=== PATIENT | female | born 1990 | race Caucasian/White ===

== ENCOUNTER 2016-07-30 17:53 | Emergency (ER) | payer MEDICAID ==
[~2016-07-30] VITALS: Ht 167.6 cm; Wt 55.4 kg
[~2016-07-30 17:53] MED LIST: ATARAX PO; CATA0.1T PO; HYDR25T PO; LIDO5DIS TD; NEUR100C PO; TRAZ50TA OR; TRAZ50TA4 PO; VENL100T PO; ZOLO50TA OR
[2016-07-30] MEDS ORDERED: EFFE75CA75 PO (18:07)
[2016-07-30] MEDS ORDERED: predniSONE 20 MG TAB PO ONE (19:00)
[2016-07-30 19:25] LABS: BASO % 0.4 % (0.0-1.0); EOS # 0.1 K/mm3 (0.0-0.50); EOS % 0.9 % (0.0-3.0); LARGE UNSTAINED CELL # 0.2 K/mm3 (0.0-0.4); LARGE UNSTAINED CELL % 1.6 % (0.0-4.0); LYMPH # 1.5 K/mm3 (1.5-6.5); LYMPH % 12.5 % (24.0-44.0); MEAN CORPUSCULAR HEMOGLOBIN 30.4 pg (27.0-33.0); MEAN CORPUSCULAR HGB CONC 35.3 g/dl (32.0-36.5); MEAN CORPUSCULAR VOLUME 86.2 fl (80.0-96.0); MONO # 0.5 K/mm3 (0.0-0.8); MONO % 4.5 % (0.0-5.0); NEUTROPHILS # 9.5 K/mm3 (1.8-7.7); NEUTROPHILS % 80.1 % (36.0-66.0); PLATELET COUNT, AUTOMATED 327 k/mm3 (150-450); RED CELL DISTRIBUTION WIDTH 11.3 % (11.5-14.5); WHITE BLOOD COUNT 11.8 K/mm3 (4.0-10.0)
[2016-07-30 19:30] LABS: INR 1.07
[2016-07-30 19:47] LABS: ALBUMIN 3.9 GM/DL (3.2-5.2); ALBUMIN/GLOBULIN RATIO 1.34 (1.00-1.93); ALKALINE PHOSPHATASE 65 U/L (45-117); ALT/SGPT 47 U/L (12-78); ANION GAP 7 MEQ/L (8-16); AST/SGOT 52 U/L (15-37); BILIRUBIN,DIRECT < 0.1 MG/DL (0.0-0.2); BILIRUBIN,TOTAL 0.3 MG/DL (0.2-1.0); BLOOD UREA NITROGEN 13 MG/DL (7-18); CARBON DIOXIDE LEVEL 25 MEQ/L (21-32); CHLORIDE LEVEL 104 MEQ/L (98-107); CREATININE FOR GFR 0.74 MG/DL (0.55-1.02); GLOMERULAR FILTRATION RATE > 60.0 (>60); GLUCOSE, FASTING 120 MG/DL (70-105); POTASSIUM SERUM 4.2 MEQ/L (3.5-5.1); SODIUM LEVEL 136 MEQ/L (136-145); TOTAL PROTEIN 6.8 GM/DL (6.4-8.2)
[2016-07-30] MEDS ORDERED: NAPR500T PO (19:51)
[2016-07-30] MEDS ORDERED: PRED20TA PO (19:51)
[2016-07-30 19:59] VITALS: BP 137/63
== END 2016-07-30 20:05 | disposition home or self-care (01) ==
LOC: M ED 18:53
DX: B34.9 Viral infection, unspecified (principal); D69.0 Allergic purpura; J02.8 Acute pharyngitis due to other specified organisms; F17.200 Nicotine dependence, unspecified, uncomplicated; Z79.899 Other long term (current) drug therapy

== ENCOUNTER 2016-08-08 07:08 | Inpatient (IN) | payer MEDICAID ==
[~2016-08-08] VITALS: Ht 165.1 cm; Wt 58.2 kg
[~2016-08-08 07:08] MED LIST changes: +EFFE75CA75 PO; +NAPR500T PO; +PRED20TA PO
[2016-08-08] MEDS ORDERED: CLINDAMYCIN 900 MG in APPROPRIATE DILUENT 1 EA IV ONE (07:45)
[2016-08-08] MEDS ORDERED: diphenhydrAMINE INJ 50MG/ML VIAL (J1200) IV ONE (07:45)
[2016-08-08] MEDS ORDERED: MORPHINE 4 MG/ML 1ML SYRINGE IV ONE (07:45)
[2016-08-08] MEDS ORDERED: ONDANSETRON 4MG/2ML VIAL (J2405) IV ONE (08:00)
[2016-08-08 08:18] LABS: DIFF SLIDE NUMBER 122; MEAN CORPUSCULAR HEMOGLOBIN 29.7 pg (27.0-33.0); MEAN CORPUSCULAR HGB CONC 33.9 g/dl (32.0-36.5); MEAN CORPUSCULAR VOLUME 87.6 fl (80.0-96.0); PLATELET COUNT, AUTOMATED 373 k/mm3 (150-450); RED CELL DISTRIBUTION WIDTH 11.9 % (11.5-14.5)
[2016-08-08 08:22] LABS: WHITE BLOOD COUNT 34.1 K/mm3 (4.0-10.0)
[2016-08-08 08:35] LABS: ALBUMIN 3.1 GM/DL (3.2-5.2); ALBUMIN/GLOBULIN RATIO 0.86 (1.00-1.93); ALKALINE PHOSPHATASE 79 U/L (45-117); ALT/SGPT 25 U/L (12-78); ANION GAP 7 MEQ/L (8-16); AST/SGOT 21 U/L (15-37); BILIRUBIN,TOTAL 0.3 MG/DL (0.2-1.0); BLOOD UREA NITROGEN 19 MG/DL (7-18); CALCIUM LEVEL 8.9 MG/DL (8.5-10.1); CARBON DIOXIDE LEVEL 27 MEQ/L (21-32); CHLORIDE LEVEL 102 MEQ/L (98-107); CREATININE FOR GFR 1.01 MG/DL (0.55-1.02); GLOMERULAR FILTRATION RATE > 60.0 (>60); GLUCOSE, FASTING 89 MG/DL (70-105); POTASSIUM SERUM 3.5 MEQ/L (3.5-5.1); SODIUM LEVEL 136 MEQ/L (136-145); TOTAL PROTEIN 6.7 GM/DL (6.4-8.2)
[2016-08-08] MEDS ORDERED: NS 1,000 ML IV ONE ×2 (08:45→13:00)
[2016-08-08 08:48] LABS: ERYTHROCYTE SEDIMENTATION RATE 17 mm/hr (0-20)
--- NOTE | 2016-08-08 09:05 | REP ---
LEFT KNEE, FIVE VIEWS: There is no evidence of an acute fracture, dislocation or intrinsic bone disease. IMPRESSION: No fracture or dislocation. Signed by Bertrand Torres MD 08/08/2016 05:12 P
--- NOTE | 2016-08-08 09:19 | REP ---
Ultrasonography of the soft tissues of the left knee: The the patient has a palpable red area in the location where she recently popped a pimple. Ultrasonography over the red area identifies cobblestoning of the subcutaneous fat, possibly edema in the subcutaneous fat. Additionally, there is a focal small zone of fluid in the fascial planes deep to the subcutaneous fat of the. This is nonspecific and could be a seroma, hematoma or small abscess. In addition, in the fascial planes deep to the subcutaneous fat post along the posterior aspect of the knee., there is another small focal fluid collection with similar diagnostic considerations. Signed by Bertrand Toro MD 08/08/2016 09:11 A
[2016-08-08] MEDS ORDERED: IBUPOTC PO (10:14)
[2016-08-08 12:16] LABS: METHADONE URINE NEGATIVE (NEGATIVE)
--- NOTE | 2016-08-08 12:18 | REP ---
MRI LEFT KNEE WITH AND WITHOUT CONTRAST: TECHNIQUE: Multiple sequences obtained in the axial, coronal and sagittal planes, prior to and following the intravenous administration of 10 mL of Gadolinium. Osseous structures demonstrate no abnormal marrow signal. There is no bone marrow edema or enhancement. There is diffuse soft tissue edema predominately laterally extending above and below the knee with scattered ill-defined enhancement consistent with cellulitis. There is a moderate amount of fluid in the fascia plane between the muscles and subcutaneous fat again extending above and below the knee for a length of about 20 cm. Maximum thickness of the fluid is 1 cm. The fluid is predominately anterolateral. It is not encapsulated. A small amount extends anteromedially. IMPRESSION: Cellulitis with moderate nonencapsulated fluid in the fascial plane between the musculature and subcutaneous fat predominately anterolaterally. This extends above and below the knee and is not encapsulated with maximum length of about 20 cm and thickness 1 cm. Nonencapsulated abscess is not excluded. A small amount extends anteromedially. Signed by Bertrand Torres MD 08/08/2016 05:13 P
[2016-08-08] MEDS ORDERED: ONDANSETRON 4MG/2ML VIAL (J2405) IV PRN (12:45)
[2016-08-08] MEDS: HEPARIN SOD (PORCINE) 5000 UNITS/ML VIAL SC SCH ×2 (14:00→21:10)
[2016-08-08] MEDS ORDERED: LIDOCAINE 1% MDV 20ML VIAL As Ordered ONE (14:17)
[2016-08-08] MEDS ORDERED: VANCOMYCIN HCL 1,000 MG, VIAL MATE ADAPTER 1 EACH in D5W 250 ML IV ONE (15:00)
--- NOTE | 2016-08-08 15:10 | CR ---
DATE OF CONSULTATION: 08/08/2016 CHIEF COMPLAINT: Left knee redness and pain. HISTORY: This is a 26-year-old with a reported history of IV drug abuse who presents to the emergency room today with some redness and increased pain of her left knee. She reported that she had a small pimple along the inferior lateral aspect of the knee that she popped a few days ago. She presented with no fevers, and I was contacted by the emergency room physician assistant principal (JAYLAN) and by Dr. Gilbert. She presents with a white count of 34.1 with 90 neutrophils and 9 lymphocytes. Her CRP is 14.6, which is significantly elevated, whereas the sedimentation rate was relatively normal. She is afebrile here. Her medications include prednisone, trazodone, venlafaxine. PAST MEDICAL HISTORY: Includes attention deficit hyperactivity disorder (ADHD), substance abuse, history of methicillin-resistant Staphylococcus aureus. ON EXAM: Otherwise healthy woman. No acute distress. She has nonlabored breathing. Her left knee demonstrates some erythema over the anterior aspect of the knee that extends down to her proximal ferreira. It is outlined down along most of her anterior tibia from where it was previously red, but it seems to be actually quite a bit smaller area now. She has tenderness to palpation, and it feels mildly warm. There is no obvious effusion of the knee. No localized areas of fluctuance. MRI scan is reviewed, which shows no localized contained fluid collection, but it looks more like a diffuse cellulitis. They do comment on some fluid between the fat and fascia that is in a large area, and this to me looks more consistent with cellulitis. IMPRESSION: Is a 26-year-old with history of substance abuse who has some redness and pain in her left knee that it looks to me like more of a cellulitis picture. There was an ultrasound that showed maybe some fluid collections. She is in ultrasound right now with anticipation of trying to get some fluid out of this or put a small drain in if there is a localized collection that they can decompress. I do not see any indications for surgical intervention, as there is no contained or capsulized fluid collection; this is more just diffuse fluid consistent with cellulitis. I would recommend IV antibiotics per the hospitalist and moist heat several times a day, 4-5 times a day. Blood cultures have been obtained, and certainly would follow labs as per the hospitalists. She denies a history of glaucoma, thyroid disease, lung disease, heart disease, hypertension, diabetes, liver or kidney disease. Denies back problems, urinary problems, or bleeding disorder. ALLERGY STATUS: She has no known drug allergies. Edited: clara 08/08/2016 1508
[2016-08-08 15:31] VITALS: BP 90/58
[2016-08-08] MEDS: MORPHINE 2 MG/ML 1ML SYRINGE IV PRN ×3 (15:38→21:19)
[2016-08-08 15:46] LABS: CRYSTALS, BODY FLUID NONE SEEN (NONE SEEN)
[2016-08-08] MEDS ORDERED: SODIUM CHLORIDE 0.9% 1000 ML IV ONE (16:00)
--- NOTE | 2016-08-08 16:30 | HPE ---
DATE OF ADMISSION: 08/08/2016 PRIMARY CARE PROVIDER: The patient usually sees JAYLAN Boyd but currently is in the process of switching to [facility]. CHIEF COMPLAINT: Left knee pain. HISTORY OF PRESENT ILLNESS: This is a 26-year-old female patient with underlying medical history of depression, insomnia, anxiety, IV drug abuse, heroin, human papillomavirus (HPV) with Pap smear and colposcopy, history of methicillin-resistant Staphylococcus aureus (MRSA) infection of the skin, last drug use 18 months ago as per patient. She noticed a pimple on her knee about two days ago, subsequently it popped and drained some purulent drainage, and subsequently the pain has worsened and the redness has spread to involve in her ferreira as well as her entire knee with difficulty bending. Denies any chest pain. Reported sweaty and chills. Denies any abdominal pain, diarrhea, or constipation. Denies any recent IV drug use or trauma other than the popped pimple. ALLERGIES: No known drug allergies. PAST MEDICAL HISTORY: 1. Anxiety. 2. depression. 3. Insomnia. 4. Human papillomavirus (HPV). 5. IV drug abuse with heroin. PAST SURGICAL HISTORY: 1. Colposcopy. 2. Left shoulder pain and repair. 3. Loop electrical excision procedure (LEEP). FAMILY HISTORY: Mother with anxiety and depression. SOCIAL HISTORY: Current smoker, one pack per day for the past 10 years. Denies alcohol drinking. History of IV drug use, last use 18 months ago. REVIEW OF SYSTEMS: Reported sweaty chills and left knee pain and redness. All other review of systems are negative. HOME MEDICATIONS: - ibuprofen 200 mg by mouth every six hours as needed - trazodone 150 mg by mouth at bedtime - Effexor 150 mg by mouth daily VITAL SIGNS: Temperature 98.6, pulse 114, respiratory rate 18, blood pressure 90/58, pulse oximetry 100% on room air. GENERAL: The patient is alert and oriented times three, in no acute distress. HEENT: Normocephalic, atraumatic. PULMONARY: Bilaterally clear to auscultation. CARDIOVASCULAR: Mild tachycardia, irregular, S1, S2. ABDOMEN: Soft, nontender. Positive bowel sounds. EXTREMITIES: Left lower knee range of movement restricted secondary to pain. Erythema extending from her ferreira all the way involving the entire knee. Mild bruising spot on the lateral knee with a pinprick spot as the patient identified the popped pimple. Dorsalis pedis (DP), posterior tibial (PT) pulses 2+ bilaterally. LABORATORY DATA: WBC 34, hemoglobin and hematocrit 14/41.1, platelets 373. Chemistry: Sodium 136, potassium 3.5, chloride 102, bicarbonate 27, BUN 19, creatinine 1, lactic acid 1.6, C-reactive protein 14.6. MRI of the knee shows cellulitis with moderate nonencapsulated fluid in the fascial plane between the macular and subcutaneous fat, predominantly anterolateral, this extends above and below the knee and is not encapsulated with max movement about 20 cm and thickness of 1 cm. Unencapsulated abscess is not excluded, small amount extending anteromedially. ASSESSMENT AND PLAN: This is a 26-year-old female patient with underlying medical history of depression, anxiety, insomnia, human papillomavirus (HPV), IV drug abuse history with heroin, admitted with cellulitis and abscess of the left knee, history of methicillin-resistant Staphylococcus aureus (MRSA). 1. Sepsis secondary to cellulitis and abscess of the left knee. Orthopedic, Dr. Cook, has been consulted. MRI appreciated. Ultrasound-guided drainage for cultures and fluid collection has been done. Blood culture has been sent. IV fluids. Followup blood culture. Lactic acid appreciated. The patient is currently on Rocephin and vancomycin. Continue to monitor. Followup cultures. Consider infectious disease consultation if the patient does not improve. 2. Anxiety. Continue current medications. 3. History of IV drug abuse. Counseling provided. Urine toxicology appreciated. 4. Insomnia. Continue current medications. 5. Smoking. Refused nicotine patch. Counseling provided. Time spent counseling the patient: Four minutes. 6. Deep vein thrombosis (DVT) prophylaxis. Heparin subcutaneous. DISPOSITION PLANNING: Pending clinical improvement, cultures, smoking cessation counseling provided.
[2016-08-08] MEDS: KCL 20MEQ in NS 1000ML 1,000 ML IV SCH ×2 (16:49→21:40)
[2016-08-08] MEDS: VENLAFAXINE **XR** 75MG CAPSULE PO SCH (16:49)
[2016-08-08] MEDS: cefTRIAXone SOD 2 GM in D5W MINI-BAG PLUS 50 ML IV SCH (16:49)
[2016-08-08] MEDS: PERCOCET 5MG/325MG TAB PO PRN (16:49)
--- NOTE | 2016-08-08 16:49 | REP ---
ULTRASOUND GUIDED LEFT KNEE ASPIRATION: The procedure was performed under the direct supervision of Dr. Torres. The patient has a history of cobblestoning of the subcutaneous fat and possible edema in the subcutaneous fat as well as small focal zones of fluid seen on a previous ultrasound dated 08/08/2016. The risks and benefits of the procedure were explained to the patient and informed consent was obtained. The left knee fluid collection was localized using ultrasound guidance. The skin was prepped and draped in a sterile fashion. 1% Xylocaine was used as a local anesthetic. Using ultrasound guidance and 18-gauge needle was inserted and a few drops of whitish colored fluid was withdrawn. The needle was then reinserted and a few drops of red tinged fluid was withdrawn. All samples were sent to the lab for analysis. The patient tolerated the procedure well and there were no immediate complications.
[2016-08-08 18:00] VITALS: BP 102/55
--- NOTE | 2016-08-08 18:28 | PHACANCOPD ---
PHARMACY VANCOMYCIN DOSING Pt Demographics Demographics Patient Age:26 , Weight:58.200 , Gender: female Adjusted Body Weight Date: 08/08/16, Adjusted Body Weight: [NA] Kg Events Past 24 Hours Events Past 24 Hours: YES: Elevation in WBC, NO: Dialysis, Diuretic Therapy, Change in CrCl, Fever, Pending Diagnostics, Pending Procedures, Other Vancomycin Vancomycin indication: SEPSIS Vancomycin Target Ranges: 15-20 mcg/ml Vancomycin Load Y/N: Yes Load Dose Date Time Vancomycin Load Dose: 1000mg Date: 08/08 Time: ~18:00 Vancomycin Dose Date: 08/08/16. Current Vancomycin Dose: [1g IV q12h @21] Intermittent Dosing?: No Labs Labs Item Value Date Time White Blood Count 34.1 K/mm3 *H 08/08/16 0805 Creatinine 1.01 MG/DL 08/08/16 0805 C-Reactive Protein, Quantitative 14.60 MG/DL H 08/08/16 0805 Micro Microbiology 08/08/16 Blood Culture, Received Pending 08/08/16 Blood Culture, Received Pending 08/08/16 Anaerobic Culture, Received Pending 08/08/16 Gram Stain - Final, Resulted 08/08/16 Abscess Culture, Resulted Pending Creatinine Clearance Date:08/08/16. Creatinine Clearance: [94 ml/min]. Assessment and Plan Maintaining Current Dose?: Yes Reason for dose change: No Dose Change Pharmacist Note Pharmacist Note Date: 08/08/16. Pharmacist note: pt has been admitted for sepsis secondary to left knee cellulitis. Pt has a Hx of IVDU, Hx of MRSA cellulitis (SALMA = 1) but has not been treated with vancomycin at our facility in the past. I have started her on vancomycin 1g this afternoon, followed by 1g IV q12h to start 3 hours later. She has also been started on Rocephin. Wound and blood cultures are pending, we will continue to monitor and order a trough as necessary. Sin Espinoza Pharm.D. Aug 08, 2016 18:28
[2016-08-08 21:05] VITALS: BP 119/63
[2016-08-08] MEDS: VANCOMYCIN HCL 1,000 MG, VIAL MATE ADAPTER 1 EACH in D5W 250 ML IV SCH (21:10)
[2016-08-08] MEDS: traZODone 50 MG TAB PO SCH (21:10)
[2016-08-09] MEDS: ACETAMINOPHEN TAB 650MG DOSE (2X325MG) PO PRN (00:15)
[2016-08-09 00:16] VITALS: BP 116/56
[2016-08-09 00:45] VITALS: BP 114/56
--- NOTE | 2016-08-09 00:58 | ECGEPIP ---
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
[2016-08-09] MEDS: KCL 20MEQ in NS 1000ML 1,000 ML IV SCH (02:06)
[2016-08-09] MEDS: HEPARIN SOD (PORCINE) 5000 UNITS/ML VIAL SC SCH ×3 (05:26→20:26)
[2016-08-09 05:59] LABS: MEAN CORPUSCULAR HGB CONC 33.8 g/dl (32.0-36.5); MEAN CORPUSCULAR VOLUME 88.7 fl (80.0-96.0)
[2016-08-09 06:01] LABS: WHITE BLOOD COUNT 32.4 K/mm3 (4.0-10.0)
[2016-08-09 06:07] LABS: ANION GAP 5 MEQ/L (8-16); BLOOD UREA NITROGEN 10 MG/DL (7-18); CALCIUM LEVEL 7.6 MG/DL (8.5-10.1); CARBON DIOXIDE LEVEL 23 MEQ/L (21-32); CHLORIDE LEVEL 109 MEQ/L (98-107); CREATININE FOR GFR 0.72 MG/DL (0.55-1.02); GLOMERULAR FILTRATION RATE > 60.0 (>60); GLUCOSE, FASTING 94 MG/DL (70-105); MAGNESIUM LEVEL 1.8 MG/DL (1.8-2.4); POTASSIUM SERUM 4.5 MEQ/L (3.5-5.1); SODIUM LEVEL 137 MEQ/L (136-145)
[2016-08-09] MEDS: MORPHINE 2 MG/ML 1ML SYRINGE IV PRN (06:19)
[2016-08-09 06:20] VITALS: BP 116/54
[2016-08-09] MEDS ORDERED: LR 1,000 ML IV ONE (07:00)
[2016-08-09] MEDS: VENLAFAXINE **XR** 75MG CAPSULE PO SCH (07:50)
[2016-08-09] MEDS: MIRALAX *UNIT DOSE* 17GM PACKET PO SCH (09:00)
[2016-08-09] MEDS: PERCOCET 5MG/325MG TAB PO PRN ×4 (09:02→23:30)
[2016-08-09] MEDS: VANCOMYCIN HCL 1,000 MG, VIAL MATE ADAPTER 1 EACH in D5W 250 ML IV SCH ×2 (09:02→17:46)
[2016-08-09] MEDS: NS 1,000 ML IV SCH ×3 (09:04→22:20)
--- NOTE | 2016-08-09 09:55 | IPN ---
DATE: 08/09/2016 Patient seen and examined a couple of times this morning, once by myself and Susanne and the other time with Dr. Gilbert and Dr. Aisha Hemphill. A great deal of time was spent with the patient today. We have also been reviewing her lab work and her history. She is a relatively poor historian. But she does relate and this is documented in the emergency room visit from 07/30/2016 that she was seen there for a sore throat and some sort of what she describes as small white pimples on her legs, mostly on the back of her legs. She, at that point, had a throat culture obtained that showed group C strep. She was treated with, as far as I can tell from emergency room record was placed on some naproxen and some prednisone taper it looked like it was 60 mg tapering down to 20 that the patient says that she stopped just before she came in yesterday. She denies any fevers at home. Lab work today shows white count slightly down at 32.4. Her CRP is elevated to 23.4. She does have a positive toxicology screen of urine opiates and urine amphetamines. Her fluid that was obtained under ultrasound guidance was just a couple drops of fluid and this is showing evidence of gram-positive cocci in pairs and chains. The blood cultures have no growth yet. She does show some anemia, which may be dilutional because she received a significant amount of fluid during the night. She now has a hematocrit of 32.4 where as yesterday it was 40.2. On physical exam, she does have this redness that looks quite similar to the way it looked yesterday that extends from just above her patella down along the anterior part of her ferreira to almost her ankle in a similar area that was outlined yesterday. However, there is a new area along the distal lateral thigh and posterior thigh. She is tender to palpation over these red areas, but there is no tenderness proximal to this and she denies any significant pain when she is resting without anyone touching it or without her moving. She is able to move her foot and ankle really almost normally without significant discomfort. She has passive range of motion distally that has no discomfort. There is only mild swelling of the lower extremity and absolutely no signs of any compartment syndrome. The compartments are soft. Previous imaging is noted in the chart. There was an MRI scan of the knee that was done yesterday that showed some cellulitis with some nonencapsulated fluid in the fascial plane between the musculature and subcutaneous fat predominately anterolaterally. Maximum length of 20 cm. This was presumably the area that they were able to get a couple of drops of fluid out under ultrasound guidance. She also had a knee x-ray yesterday that was otherwise (dictation cut off). Again, Dr. Gilbert and Dr. Hemphill and I discussed this in detail and it is a little bit puzzling as to what is going on here, whether this is just cellulitis that has been treated with vancomycin and ceftriaxone, and she also received a dose of clindamycin in I believe the emergency room yesterday morning. It does seem to have gotten a little bit more widespread in terms of now involving her distal lateral thigh for a short distance, maybe 10 cm in the posterior thigh. Some were in the 15 cm range. She has no discomfort at rest that she reports, so it is very unlikely to be a necrotizing fasciitis and very unlikely to be any sort of compartment syndrome. The question is whether there might be some fluid collection that could be drained that potentially may help her. We are going to keep her nothing by mouth for right now. We are going to order further imaging studies. Currently, Dr. Hemphill is discussing with the radiologist imaging options for her and we will proceed based on what further imaging shows.
[2016-08-09] MEDS ORDERED: MORPHINE 2 MG/ML 1ML SYRINGE IV PRN (11:00)
[2016-08-09] MEDS: SENOKOT S TAB PO SCH ×2 (13:09→20:27)
[2016-08-09] MEDS: cefTRIAXone SOD 2 GM in D5W MINI-BAG PLUS 50 ML IV SCH (13:09)
[2016-08-09 14:00] VITALS: BP 101/54
--- NOTE | 2016-08-09 16:05 | IPNPDOC ---
Subjective Date Seen The patient was seen on 08/09/16. Subjective Chief Complaint/HPI The patient is a 26-year-old female admitted with a reason for visit of Cellulitis Of Left Knee, Septic Arthritis. Events since last encounter reported persistent left LE and knee pain, worsen with movement, 8/10,. no change from previous. tachycardiac and febrile overnight. Denied cp, abd pain, n /v. Constitutional: Reports: Chills, Fever Eyes: Denies: Pain ENT: Denies: Head Aches Skin: Reports: Lesions (left knee) Pulmonary: Denies: Dyspnea, Cough Cardiovascular: Denies: Chest Pain, Palpitations Gastrointestinal: Denies: Nausea, Vomiting, Abdominal Pain Objective Physical Examination General Exam: Positive: Alert, Cooperative, Mild Distress Eye Exam: Positive: PERRLA ENT Exam: Positive: Atraumatic, Mucous membr. moist/pink Chest Exam: Positive: Clear to auscultation, Normal air movement Heart Exam: Positive: Tachycardic, Regular Rhythm, Normal S1, Normal S2 Abdomen Exam: Positive: Normal bowel sounds, Soft, Negative: Tenderness Extremity Exam: Positive: Tenderness, Swelling, Other Other physical findings Left lower knee range of movement restricted secondary to pain. Erythema extending from her ferreira all the way involving the entire knee. Mild bruising spot on the lateral knee with a pinprick spot as the patient identified the popped pimple. Dorsalis pedis (DP), posterior tibial (PT) pulses 2+ bilaterally. erythema seens to be progressing upward Assessment /Plan Assessment 26-year-old female patient with underlying medical history of depression, anxiety, insomnia, human papillomavirus (HPV), IV drug abuse history with heroin, admitted with cellulitis and abscess of the left knee, history of methicillin-resistant Staphylococcus aureus (MRSA). Problems (1) Cellulitis of left knee Status: Acute Problem Text: IVF, 2/2 to strep, cultures appreciated, ortho and ID consulted MRI done, Rocephin and Vanoc repeat MRI tomorrow if not improved. pain med as prescribed (2) Sepsis Status: Acute Problem Text: Febrile and tachycardiac IVF given, Rocephin and vanco, f/u cultures MRI repeat if not improved to r/o abscess (3) Anxiety Status: Chronic Problem Text: c/w home med (4) Insomnia Status: Chronic Problem Text: c/w med (5) Smoking Status: Chronic Problem Text: counseling provider, refused nicotine patch (6) IV drug abuse Status: Chronic Problem Text: last use 18 month ago U tox and HIV, and hepatitis recent Pseudafed use Plan/VTE VTE Prophylaxis Ordered?: Yes (heparin SQ) Disposition Pending clinical improvement VS, I&O, 24H, Fishbone Vital Signs/I&O Vital Signs Date Time Temp Pulse Resp B/P (MAP) Pulse Ox O2 Delivery O2 Flow Rate FiO2 08/09/16 14:00 98.3 80 18 101/54 (70) 95 Room Air I&O- Last 24 Hours up to 6 AM 08/09/16 05:59 Intake Total 4240 ml Output Total 1650 ml Balance 2590 ml Laboratory Data 24H LABS Laboratory Tests 2 08/09/16 05:17: Anion Gap 5L, Glomerular Filtration Rate > 60.0, Blood Urea Nitrogen 10, Creatinine 0.72, Sodium Level 137, Potassium Level 4.5#, Chloride Level 109H, Carbon Dioxide Level 23, Calcium Level 7.6L, Magnesium Level 1.8, C-Reactive Protein, Quantitative 23.40H CBC/BMP Laboratory Tests 08/09/16 05:17 Red Blood Count 3.65 L, Mean Corpuscular Volume 88.7, Mean Corpuscular Hemoglobin 30.0, Mean Corpuscular Hemoglobin Concent 33.8, Red Cell Distribution Width 12.0, Calcium Level 7.6 L Microbiology Microbiology 08/08/16 Blood Culture - Preliminary, Resulted No growth after 24 hours . All specim... 08/08/16 Blood Culture - Preliminary, Resulted No growth after 24 hours . All specim... 08/08/16 Anaerobic Culture, Received Pending 08/08/16 MRSA Screen, Received Pending 08/08/16 Gram Stain - Final, Resulted 08/08/16 Abscess Culture - Preliminary, Resulted Streptococcus Pyogenes STEVE Bone MD Aug 09, 2016 16:05
[2016-08-09] MEDS: MORPHINE 4 MG/ML 1ML SYRINGE IV PRN ×2 (17:47→23:29)
[2016-08-09 18:50] LABS: BASO % 0.1 % (0.0-1.0); EOS # 0.1 K/mm3 (0.0-0.50); EOS % 0.3 % (0.0-3.0); LARGE UNSTAINED CELL # 0.1 K/mm3 (0.0-0.4); LARGE UNSTAINED CELL % 0.5 % (0.0-4.0); LYMPH # 1.2 K/mm3 (1.5-6.5); LYMPH % 4.3 % (24.0-44.0); MEAN CORPUSCULAR HEMOGLOBIN 29.8 pg (27.0-33.0); MEAN CORPUSCULAR HGB CONC 33.1 g/dl (32.0-36.5); MEAN CORPUSCULAR VOLUME 90.1 fl (80.0-96.0); MONO # 0.8 K/mm3 (0.0-0.8); MONO % 3.1 % (0.0-5.0); NEUTROPHILS # 23.7 K/mm3 (1.8-7.7); NEUTROPHILS % 91.8 % (36.0-66.0); PLATELET COUNT, AUTOMATED 285 k/mm3 (150-450); RED CELL DISTRIBUTION WIDTH 12.1 % (11.5-14.5); WHITE BLOOD COUNT 25.8 K/mm3 (4.0-10.0)
[2016-08-09] MEDS: CLINDAMYCIN 900 MG in APPROPRIATE DILUENT 1 EA IV SCH (20:27)
[2016-08-09] MEDS: traZODone 50 MG TAB PO SCH (20:27)
[2016-08-09 20:30] VITALS: BP 105/86
[2016-08-10] MEDS: VANCOMYCIN HCL 1,000 MG, VIAL MATE ADAPTER 1 EACH in D5W 250 ML IV SCH ×3 (01:57→19:44)
[2016-08-10] MEDS: NS 1,000 ML IV SCH ×3 (03:54→20:48)
[2016-08-10] MEDS: CLINDAMYCIN 900 MG in APPROPRIATE DILUENT 1 EA IV SCH ×2 (03:54→11:48)
[2016-08-10 05:50] VITALS: BP 99/52
[2016-08-10] MEDS: HEPARIN SOD (PORCINE) 5000 UNITS/ML VIAL SC SCH ×2 (05:59→14:00)
[2016-08-10] MEDS: ACETAMINOPHEN TAB 650MG DOSE (2X325MG) PO PRN ×2 (05:59→18:56)
[2016-08-10] MEDS: PERCOCET 5MG/325MG TAB PO PRN ×3 (06:26→20:49)
[2016-08-10] MEDS: MIRALAX *UNIT DOSE* 17GM PACKET PO SCH (09:00)
[2016-08-10] MEDS: VENLAFAXINE **XR** 75MG CAPSULE PO SCH (09:02)
[2016-08-10] MEDS: SENOKOT S TAB PO SCH (09:02)
[2016-08-10] MEDS: MORPHINE 4 MG/ML 1ML SYRINGE IV PRN ×3 (09:11→18:42)
[2016-08-10 11:41] LABS: ANION GAP 6 MEQ/L (8-16); BLOOD UREA NITROGEN 6 MG/DL (7-18); CALCIUM LEVEL 7.4 MG/DL (8.5-10.1); CARBON DIOXIDE LEVEL 23 MEQ/L (21-32); CHLORIDE LEVEL 111 MEQ/L (98-107); CREATININE FOR GFR 0.76 MG/DL (0.55-1.02); GLOMERULAR FILTRATION RATE > 60.0 (>60); GLUCOSE, FASTING 112 MG/DL (70-105); MAGNESIUM LEVEL 2.1 MG/DL (1.8-2.4); POTASSIUM SERUM 3.7 MEQ/L (3.5-5.1); SODIUM LEVEL 140 MEQ/L (136-145)
[2016-08-10 13:43] LABS: BASO % 0.1 % (0.0-1.0); EOS # 0.2 K/mm3 (0.0-0.50); EOS % 0.8 % (0.0-3.0); LARGE UNSTAINED CELL # 0.2 K/mm3 (0.0-0.4); LARGE UNSTAINED CELL % 0.8 % (0.0-4.0); LYMPH # 1.5 K/mm3 (1.5-6.5); LYMPH % 5.5 % (24.0-44.0); MEAN CORPUSCULAR HGB CONC 33.7 g/dl (32.0-36.5); MEAN CORPUSCULAR VOLUME 89.3 fl (80.0-96.0); MONO # 0.8 K/mm3 (0.0-0.8); MONO % 3.4 % (0.0-5.0); NEUTROPHILS # 20.9 K/mm3 (1.8-7.7); NEUTROPHILS % 89.5 % (36.0-66.0); PLATELET COUNT, AUTOMATED 281 k/mm3 (150-450); RED CELL DISTRIBUTION WIDTH 12.3 % (11.5-14.5); WHITE BLOOD COUNT 23.4 K/mm3 (4.0-10.0)
[2016-08-10 14:00] VITALS: BP 117/74
[2016-08-10 14:10] LABS: ERYTHROCYTE SEDIMENTATION RATE 63 mm/hr (0-20)
--- NOTE | 2016-08-10 16:44 | IPNPDOC ---
Subjective Date Seen The patient was seen on 08/10/16. Subjective Chief Complaint/HPI The patient is a 26-year-old female admitted with a reason for visit of Cellulitis Of Left Knee, Septic Arthritis. Events since last encounter Reported left LE pain not improved. febrile, denied n/c/abd pain/diarrhea. reported constipation Constitutional: Reports: Chills, Fever Eyes: Denies: Pain, Vision change ENT: Denies: Head Aches Skin: Denies: Rash, Lesions Pulmonary: Denies: Dyspnea, Cough Cardiovascular: Denies: Chest Pain, Palpitations Gastrointestinal: Denies: Nausea, Vomiting, Abdominal Pain Objective Physical Examination General Exam: Positive: Alert, Cooperative, Mild Distress Eye Exam: Positive: PERRLA ENT Exam: Positive: Atraumatic, Mucous membr. moist/pink Chest Exam: Positive: Clear to auscultation, Normal air movement Heart Exam: Positive: Tachycardic, Regular Rhythm, Normal S1, Normal S2 Abdomen Exam: Positive: Normal bowel sounds, Soft, Negative: Tenderness Extremity Exam: Positive: Tenderness, Swelling, Other (erythema, seems ot be spreading involing left foot, ferreira and lateral and medial thigh) Assessment /Plan Assessment 26-year-old female patient with underlying medical history of depression, anxiety, insomnia, human papillomavirus (HPV), IV drug abuse history with heroin, admitted with cellulitis and abscess of the left knee, history of methicillin-resistant Staphylococcus aureus (MRSA). Problems (1) Cellulitis of left knee Status: Acute Problem Text: IVF, 2/2 to strep, cultures appreciated, ortho and ID consulted MRI done, Rocephin, clindamycin and Vanoc repeat MRI. pain med as prescribed (2) Sepsis Status: Acute Problem Text: Febrile and tachycardiac IVF given, Rocephin and vanco, clindamycin f/u cultures, strep MRI repeat (3) Anxiety Status: Chronic Problem Text: c/w home med (4) Insomnia Status: Chronic Problem Text: c/w med (5) Smoking Status: Chronic Problem Text: counseling provider, refused nicotine patch (6) IV drug abuse Status: Chronic Problem Text: last use 18 month ago U tox and HIV, and hepatitis recent Pseudafed use Plan/VTE VTE Prophylaxis Ordered?: Yes (heparin SQ) Disposition MRI repeat, clinical improvement VS, I&O, 24H, Fishbone Vital Signs/I&O Vital Signs Date Time Temp Pulse Resp B/P (MAP) Pulse Ox O2 Delivery O2 Flow Rate FiO2 08/10/16 12:14 92 18 116/67 08/10/16 08:40 96.9 08/10/16 05:50 90 Room Air I&O- Last 24 Hours up to 6 AM 08/10/16 06:00 Intake Total 4875 ml Output Total 1525 ml Balance 3350 ml Laboratory Data 24H LABS Laboratory Tests 2 08/09/16 16:59: Random Vancomycin Level 2.4 08/09/16 17:56: White Blood Count 25.8H, Red Blood Count 3.58L, Hemoglobin 10.7L, Hematocrit 32.3L, Mean Corpuscular Volume 90.1, Mean Corpuscular Hemoglobin 29.8, Mean Corpuscular Hemoglobin Concent 33.1, Red Cell Distribution Width 12.1, Platelet Count 285, Neutrophils (%) (Auto) 91.8H, Lymphocytes (%) (Auto) 4.3L, Monocytes (%) (Auto) 3.1, Eosinophils (%) (Auto) 0.3, Basophils (%) (Auto) 0.1, Neutrophils # (Auto) 23.7H, Lymphocytes # (Auto) 1.2L, Monocytes # (Auto) 0.8, Eosinophils # (Auto) 0.1, Basophils # (Auto) 0.0, Large Unclassified Cells % 0.5 , Large Unclassified Cells # 0.1 08/10/16 11:07: Anion Gap 6L, Glomerular Filtration Rate > 60.0, Blood Urea Nitrogen 6L, Creatinine 0.76, Sodium Level 140, Potassium Level 3.7, Chloride Level 111H, Carbon Dioxide Level 23, Calcium Level 7.4L, Magnesium Level 2.1, C-Reactive Protein, Quantitative 17.80H 08/10/16 13:23: White Blood Count 23.4H, Red Blood Count 3.45L, Hemoglobin 10.4L, Hematocrit 30.8L, Mean Corpuscular Volume 89.3, Mean Corpuscular Hemoglobin 30.0, Mean Corpuscular Hemoglobin Concent 33.7, Red Cell Distribution Width 12.3, Platelet Count 281, Neutrophils (%) (Auto) 89.5H, Lymphocytes (%) (Auto) 5.5L, Monocytes (%) (Auto) 3.4, Eosinophils (%) (Auto) 0.8, Basophils (%) (Auto) 0.1, Neutrophils # (Auto) 20.9H, Lymphocytes # (Auto) 1.5, Monocytes # (Auto) 0.8, Eosinophils # (Auto) 0.2, Basophils # (Auto) 0.0, Large Unclassified Cells % 0.8 , Large Unclassified Cells # 0.2, Erythrocyte Sedimentation Rate 63H CBC/BMP Laboratory Tests 08/09/16 17:56 Red Blood Count 3.58 L, Mean Corpuscular Volume 90.1, Mean Corpuscular Hemoglobin 29.8, Mean Corpuscular Hemoglobin Concent 33.1, Red Cell Distribution Width 12.1, Neutrophils (%) (Auto) 91.8 H, Lymphocytes (%) (Auto) 4.3 L, Monocytes (%) (Auto) 3.1, Eosinophils (%) (Auto) 0.3, Basophils (%) (Auto ) 0.1, Neutrophils # (Auto) 23.7 H, Lymphocytes # (Auto) 1.2 L, Monocytes # ( Auto) 0.8, Eosinophils # (Auto) 0.1, Basophils # (Auto) 0.0 08/10/16 11:07 Calcium Level 7.4 L 08/10/16 13:23 Red Blood Count 3.45 L, Mean Corpuscular Volume 89.3, Mean Corpuscular Hemoglobin 30.0, Mean Corpuscular Hemoglobin Concent 33.7, Red Cell Distribution Width 12.3, Neutrophils (%) (Auto) 89.5 H, Lymphocytes (%) (Auto) 5.5 L, Monocytes (%) (Auto) 3.4, Eosinophils (%) (Auto) 0.8, Basophils (%) (Auto ) 0.1, Neutrophils # (Auto) 20.9 H, Lymphocytes # (Auto) 1.5, Monocytes # (Auto ) 0.8, Eosinophils # (Auto) 0.2, Basophils # (Auto) 0.0 Microbiology Microbiology 08/08/16 Blood Culture - Preliminary, Resulted No Growth after 48 hours. All Specime... 08/08/16 Blood Culture - Preliminary, Resulted No Growth after 48 hours. All Specime... 08/08/16 Anaerobic Culture - Final, Complete 08/08/16 MRSA Screen - Final, Complete 08/08/16 Gram Stain - Final, Complete 08/08/16 Abscess Culture - Final, Complete Streptococcus Pyogenes Grp A STEVE DOMINGUEZ MD Aug 10, 2016 16:44
--- NOTE | 2016-08-10 17:20 | CR.PDOC ---
[facility] Consultation Consultation Orthopedic surgery progress note Amirah Weaver is a 26 y/o female was admitted 2 days ago with a left leg cellulitis that had not responded to antibiotic treatment. Patient was examined at bedside and found to have expanding cellulitis about the leg and thigh. Patient is hemodynamically stable. Had a recent aspirate from a suspected abscess that grew group A streptococcus. LRINEC score calculated at 8, giving 94 % positive predictive value for necrotizing fasciitis. Given that information and +GAS culture, diagnosis of necrotizing fasciitis extremely likely. Discussed with [facility] trauma service who has accepted patient for transfer for definitive management of LLE necrotizing fasciitis. Discussed with hospitalist Dr. Gilbert and transfer has been initiated Tariq Cuellar MD Orthopedic surgeon Vital Signs/I&O Vital Signs Date Time Temp Pulse Resp B/P (MAP) Pulse Ox O2 Delivery O2 Flow Rate FiO2 08/10/16 16:44 18 08/10/16 12:14 92 116/67 08/10/16 08:40 96.9 08/10/16 05:50 90 Room Air I&O- Last 24 Hours up to 6 AM 08/10/16 06:00 Intake Total 4875 ml Output Total 1525 ml Balance 3350 ml Laboratory Data Labs 24H Laboratory Tests 2 08/09/16 17:56: White Blood Count 25.8H, Red Blood Count 3.58L, Hemoglobin 10.7L, Hematocrit 32.3L, Mean Corpuscular Volume 90.1, Mean Corpuscular Hemoglobin 29.8, Mean Corpuscular Hemoglobin Concent 33.1, Red Cell Distribution Width 12.1, Platelet Count 285, Neutrophils (%) (Auto) 91.8H, Lymphocytes (%) (Auto) 4.3L, Monocytes (%) (Auto) 3.1, Eosinophils (%) (Auto) 0.3, Basophils (%) (Auto) 0.1, Neutrophils # (Auto) 23.7H, Lymphocytes # (Auto) 1.2L, Monocytes # (Auto) 0.8, Eosinophils # (Auto) 0.1, Basophils # (Auto) 0.0, Large Unclassified Cells % 0.5 , Large Unclassified Cells # 0.1 08/10/16 11:07: Anion Gap 6L, Glomerular Filtration Rate > 60.0, Blood Urea Nitrogen 6L, Creatinine 0.76, Sodium Level 140, Potassium Level 3.7, Chloride Level 111H, Carbon Dioxide Level 23, Calcium Level 7.4L, Magnesium Level 2.1, C-Reactive Protein, Quantitative 17.80H 08/10/16 13:23: White Blood Count 23.4H, Red Blood Count 3.45L, Hemoglobin 10.4L, Hematocrit 30.8L, Mean Corpuscular Volume 89.3, Mean Corpuscular Hemoglobin 30.0, Mean Corpuscular Hemoglobin Concent 33.7, Red Cell Distribution Width 12.3, Platelet Count 281, Neutrophils (%) (Auto) 89.5H, Lymphocytes (%) (Auto) 5.5L, Monocytes (%) (Auto) 3.4, Eosinophils (%) (Auto) 0.8, Basophils (%) (Auto) 0.1, Neutrophils # (Auto) 20.9H, Lymphocytes # (Auto) 1.5, Monocytes # (Auto) 0.8, Eosinophils # (Auto) 0.2, Basophils # (Auto) 0.0, Large Unclassified Cells % 0.8 , Large Unclassified Cells # 0.2, Erythrocyte Sedimentation Rate 63H CBC/BMP Laboratory Tests 08/09/16 17:56 Red Blood Count 3.58 L, Mean Corpuscular Volume 90.1, Mean Corpuscular Hemoglobin 29.8, Mean Corpuscular Hemoglobin Concent 33.1, Red Cell Distribution Width 12.1, Neutrophils (%) (Auto) 91.8 H, Lymphocytes (%) (Auto) 4.3 L, Monocytes (%) (Auto) 3.1, Eosinophils (%) (Auto) 0.3, Basophils (%) (Auto ) 0.1, Neutrophils # (Auto) 23.7 H, Lymphocytes # (Auto) 1.2 L, Monocytes # ( Auto) 0.8, Eosinophils # (Auto) 0.1, Basophils # (Auto) 0.0 08/10/16 11:07 Calcium Level 7.4 L 08/10/16 13:23 Red Blood Count 3.45 L, Mean Corpuscular Volume 89.3, Mean Corpuscular Hemoglobin 30.0, Mean Corpuscular Hemoglobin Concent 33.7, Red Cell Distribution Width 12.3, Neutrophils (%) (Auto) 89.5 H, Lymphocytes (%) (Auto) 5.5 L, Monocytes (%) (Auto) 3.4, Eosinophils (%) (Auto) 0.8, Basophils (%) (Auto ) 0.1, Neutrophils # (Auto) 20.9 H, Lymphocytes # (Auto) 1.5, Monocytes # (Auto ) 0.8, Eosinophils # (Auto) 0.2, Basophils # (Auto) 0.0 Microbiology Microbiology 08/08/16 Blood Culture - Preliminary, Resulted No Growth after 48 hours. All Specime... 08/08/16 Blood Culture - Preliminary, Resulted No Growth after 48 hours. All Specime... 08/08/16 Anaerobic Culture - Final, Complete 08/08/16 MRSA Screen - Final, Complete 08/08/16 Gram Stain - Final, Complete 08/08/16 Abscess Culture - Final, Complete Streptococcus Pyogenes Grp A Allergies Coded Allergies: No Known Drug Allergy (Verified Allergy, Unknown, 05/18/12) Home Medications Scheduled Trazodone HCl (Trazodone HCl) 50 Mg Tab, 150 MG PO QHS for , (Reported) Venlafaxine Hydrochloride (Effexor Xr) 75 Mg Cap, 150 MG PO DAILY, (Reported) Scheduled PRN Ibuprofen (Ibuprofen) 200 Mg Tab, 200 MG PO Q6H PRN for PAIN, (Reported) [place] CUELLAR MD Aug 10, 2016 17:20
--- NOTE | 2016-08-10 18:20 | DSES ---
DATE OF ADMISSION: 08/08/2016 DATE OF DISCHARGE: 08/10/2016 PRIMARY CARE PROVIDER: Patient used to be a patient of JAYLAN Boyd. Currently is in process of being established with [facility]. ORTHOPEDIC SURGEON: Dr. Norman Cook and Dr. Cortes. INFECTIOUS DISEASE SPECIALIST: Dr. Hemphill FINAL DIAGNOSES: 1. Suspected necrotizing fasciitis of left lower extremity. 2. Sepsis. 3. Anxiety. 4. Insomnia. 5. Smoking. 6. History of intravenous drug use. HISTORY OF PRESENT ILLNESS: This is a 26-year-old female patient with underlying medical history of depression, insomnia, anxiety, intravenous (IV) drug use, heroin (last use was 18 months ago), human papillomavirus (HPV) with colposcopy and loop electrosurgical excision procedure (LEEP), history of methicillin-resistant Staphylococcus aureus (MRSA) infection of the skin. Noticed a pimple on her knee about 2 days prior to admission. Subsequently it popped and drained some purulent drainage. Subsequently the pain worsened with redness spreading from her knee, above to her thigh and lower to her ferreira area with difficulty bending. Denies any chest pain, pressure, or discomfort. Was febrile. HOSPITAL COURSE: Patient was admitted to the hospital. Infectious disease was consulted as well as orthopedic surgery. MRI was done, and ultrasound-guided fluid drainage of fluid collection was done. Fluid cultures shows Streptococcus pyogenes, group A. Patient was started on Rocephin, clindamycin, and vancomycin. Intravenous (IV) fluid was given. Aggressive fluid resuscitation was done. Patient's home medication was continued. Bowel regimen was given for constipation. Despite treatment, patient's redness has progressed up to her thigh, medial and lateral, and up to her foot. Repeat MRI was ordered. Case was discussed with orthopedic surgery. As per orthopedic surgery, a high suspicion for necrotizing fasciitis. Recommend a transfer to [facility] for possible debridement with a trauma surgery followup with a trauma surgeon. Orthopedics, Dr. Cortes, has discussed the case with Dr. Davis. Subsequently, patient was accepted by Dr. Davis. VITAL SIGNS: Temperature 98, pulse 102, respirations 18, blood pressure 117/74, pulse oximetry 96% on room air. GENERAL: Patient alert and oriented times three in no acute distress. HEENT: Normocephalic, atraumatic. PULMONARY: Bilaterally clear to auscultation. CARDIAC: Regular rate and rhythm. Mild tachycardia. ABDOMEN: Soft, nontender, nondistended. Patient's left lower extremity shows swelling spreading from the knee to medial and lateral thigh with erythema and to her foot with erythema. Painful to palpation. Out of proportion to exam. Dorsalis pedis (DP), posterior tibialis (PT) pulses intact. Limited range of movement secondary pain. LABORATORY: WBC 23.4, hemoglobin and hematocrit 10.4/30.8, platelets 181. Chemistry: Sodium 140, potassium 3.7, chloride 111, bicarbonate 23, BUN 6, creatinine 0.76, C-reactive protein 17.8. INPATIENT MEDICATION: Patient on: - Rocephin IV every 24 hours - clindamycin 900 IV every 8 hours - normal saline 150 mL an hour - vancomycin 1000 mg IV every 8 hours - acetaminophen 650 mg by mouth every 4 hours as needed - Senokot-S one tablet by mouth twice a day - heparin subcutaneous 5000 units every 8 hours - morphine sulfate 4 mg IV every 2 hours as needed - Zofran 4 mg IV every 6 hours as needed - Percocet one tablet by mouth every 4 hours as needed - MiraLax one pack by mouth daily - trazodone 150 mg by mouth at bedtime - Effexor 150 mg by mouth daily DISCHARGE INSTRUCTIONS: Patient is instructed to followup with primary care provider after discharge from [facility]. Further care as per surgeons at [facility].
[2016-08-10] MEDS: cefTRIAXone SOD 2 GM in D5W MINI-BAG PLUS 50 ML IV SCH (18:42)
[2016-08-10 22:00] VITALS: BP 123/67
--- NOTE | 2016-08-11 08:01 | REP ---
MRI LEFT KNEE WITHOUT CONTRAST: 08/10/2016 COMPARISON: MRI without and with contrast 08/08/2016, x-ray 08/08/2016. The patient also had a femur and tibia MRI today. CLINICAL HISTORY: Clinically worsening. Drainage procedure revealed Strep growing in the fluid collection about the knee in the fascial plane between subcutaneous fat and musculature. Consistent with abscess and cellulitis. FINDINGS: Coronal and sagittal T1 and fat suppressed sequences with axial T1 and fat suppressed T2 sequences. There is a joint effusion evident of moderate size and larger than at 2 days ago. In addition, the subcutaneous fluid collection anterolateral to the knee is now thicker up to 16 mm, previously 11 mm. There is now circumferential subcutaneous edema and fluid all around the knee deep to the fat infiltrate in the fat superficial fascial planes. There is also fluid tracking into fascial planes behind the in the popliteal fossa. I do not see marrow signal abnormality on the STIR images in any component of the knee. IMPRESSION: 1. Worsening cellulitis and subcutaneous abscess with fluid collection now circumferential around the knee with extensive edema, skin thickening and cellulitis. Fluid tracking along the fascial planes into the muscle layers behind the popliteal fossa. Fluid collection is now 16 mm along the lateral patellar retinaculum, it was 11 mm 2 days ago. Joint effusion in the knee is larger than on the exam 2 days ago. No marrow signal abnormality. Signed by Gilberto Jauregui MD 08/11/2016 10:34 A
--- NOTE | 2016-08-11 08:03 | REP ---
MRI FEMUR WITHOUT CONTRAST: 08/10/2016 CLINICAL HISTORY: Strep cellulitis abscess about the knee with drainage procedure 2 days ago after knee MRI. Clinical condition worsening. Examination aborted to take her to the operating room. TECHNIQUE: Whole femur coronal T1 and T2 STIR images and axial T1 images were obtained. FINDINGS. There is extensive subcutaneous edema around the knee and extending up the thigh to the groin medially and above the lesser trochanter laterally. The full extent on the coronal images cannot be ascertained. There is no marrow signal abnormality in the femoral shaft or condyles. Muscle signal show no mass or infiltration. There is a joint effusion in both knees larger on the left. Some minimal subcutaneous edema about the right thigh, which clearly does not have the edema and swelling seen on the left. IMPRESSION: 1. Extensive cellulitis with subcutaneous edema and fluid extending up the thigh from the knee in the subcutaneous layer along the fascial planes superficial to the muscle layer all the way to the groin and level of the trochanters at the lateral aspect of the thigh. There is no marrow signal abnormality. Bilateral joint effusions left greater than right within the knee. Minimal subcutaneous edema in the right thigh and knee region. Signed by Gilberto Jauregui MD 08/11/2016 10:34 A
--- NOTE | 2016-08-11 08:06 | REP ---
MRI OF THE TIBIA WITHOUT CONTRAST: 08/10/2016 CLINICAL HISTORY: Cellulitis periarticular region at the knee with recent drainage 2 days ago growing Streptococcus. Symptoms are worsening with erythema extending upward in the thigh and downward in the lower leg from the knee with worse swelling. TECHNIQUE: Axial, sagittal and coronal T1 and the T2 STIR images of the lower legs were obtained and a sagittal fat suppressed T1 sequence was also obtained. The exam was aborted and contrast not given as the patient was going to the OR for definitive treatment. FINDINGS: Circumferential edema and fluid about the knee with subcutaneous fat layer further edematous and swollen compared to days ago. The fluid and edema extends all the way down the calf to the ankle more medial collection at the ankle than lateral. There is minor subcutaneous edema in the right. There are bilateral knee joint effusions. The muscle signal some stranding along fascial planes in the anterior compartment but not the posterior compartment. There is no marrow signal abnormality in the tibia or fibula on the T2 STIR sequences. IMPRESSION: 1. Extensive subcutaneous edema and fluid collection/abscess from the knee to the ankle in a circumferential fashion. Thick fluid collection and edematous subcutaneous fat. . Fluid is mostly being limited by the fascial planes around the muscles. 2. No marrow signal abnormality to suggest osteomyelitis. No other finding. Signed by Gilberto Jauregui MD 08/11/2016 10:34 A
--- NOTE | 2016-08-11 08:16 | REP ---
AP PORTABLE CHEST: 08/10/2016. CLINICAL HISTORY: Central line placement. Extensive cellulitis/abscess in the right lower extremity. FINDINGS: There are no prior studies. Lungs are hypoinflated. There is extensive atelectasis or consolidation lower lung zones. Dense opacity retrocardiac left lower lobe obscures the left diaphragm. I suspect atelectasis or significant infiltrate. There is vascular engorgement. The heart has left ventricular configuration without gross cardiomegaly. Airway midline. Bones intact. There is a right jugular central catheter with tip in the SVC junction with the right atrium. IMPRESSION: 1. Right jugular central catheter at confluence of the SVC and right atrium. No widening the mediastinum or pneumothorax. 2. Extensive bibasilar infiltrates or atelectasis. Cannot exclude effusion. Some vascular congestion. Low level of inflation. Signed by Gilberto Jauregui MD 08/11/2016 10:36 A
--- NOTE | 2016-08-11 12:38 | RO ---
DATE OF PROCEDURE: 08/10/2016 INDICATION FOR PROCEDURE: Necrotizing fasciitis with poor venous access. History of intravenous (IV) drug use. POSTPROCEDURE DIAGNOSIS: Suspected necrotizing fasciitis with poor venous access. History of IV drug use. PROCEDURE PERFORMED: Right internal jugular (IJ) triple lumen central line. SURGEON: Dr. Nicole Gilbert CLIENT SERVER DEVELOPER: Janae registered nurse ANESTHESIA: 1% local lidocaine. SEDATION: None. VENTILATION: 2 liters nasal cannula. ESTIMATED BLOOD LOSS: 10 mL. The patient was placed in supine position. The right side of patient's neck was cleaned with ChloraPrep and covered in a sterile manner. Ultrasound with sterile probe cover was used. The patient's right IJ was located. 1% local subcutaneous lidocaine was injected with ultrasound guidance. Subsequently a needle was inserted with ultrasound guidance. A flash of blood was obtained. A wire was inserted through the needle and the needle was removed. The wire position was confirmed with ultrasound. Subsequently the site was dilated and a triple lumen central line was inserted over a guidewire via Seldinger technique. The wire was removed. All three ports of the central line were flushed and the central line was secured with clamps and stitches. Dressing was placed. X-ray was ordered for confirmation. The patient tolerated the procedure with no complications.
--- NOTE | 2016-08-12 12:11 | CR ---
DATE OF CONSULTATION: 08/09/2016 REASON FOR CONSULTATION: Asked to consult by Dr. Irving Cook for left leg cellulitis and question of necrotizing fasciitis. HISTORY OF PRESENT ILLNESS: Amirah is a 26-year-old female with a previous history of intravenous (IV) drug abuse, reportedly quit using 18 months ago. The patient came to the emergency room on July 30 with what she described as sore throat and papules and pustules on mostly the posterior aspect of the thigh. The patient had a throat culture done and given steroids with a presumptive diagnosis of Henoch-Schonlein purpura. During that emergency room visit, her white count was 11.8. Kidney function was normal. AST was slightly elevated as 52. The patient took a prednisone taper of 10 days which she had finished a day prior to admission. She had noted a pustule on her left knee the day prior to admission that she tried to manipulate and extract the pus out of it . Then she developed severe redness along the knee which extended to the mid thigh and leg. She came to the emergency room. She had a fever with a white count of 34,000, 90% neutrophils. C-reactive protein (CRP) was 14.6. The patient was started on broad-spectrum antibiotic including IV vancomycin and Rocephin. The next day, 08/09, the patient's pain was worse and there was some extension of the redness. I was called to see the patient. She denied any nausea, vomiting or diarrhea or abdominal pain. The sore throat has resolved. She states she had finished her whole prednisone taper. She was complaining of significant pain but mostly when she was being examined. This consultation was done on August 09. OBJECTIVE: VITAL SIGNS: Her temperature was 101.4 on admission, was down to 98.3 later that night, pulse 102, respirations 18, blood pressure 105/86, O2 saturation 95% on room air. HEART: Normal S1, S2, tachycardiac. No murmurs appreciated. No rubs or gallops. LUNGS: Clear. No wheezes, rales or rhonchi. ABDOMEN: Soft, nontender. No hepatosplenomegaly. EXTREMITIES: Tattoos. Right lower extremity had no redness. Left lower extremity has redness extending from the ankle to the mid thigh with tenderness. Knee had fair range of motion. Lateral aspect of the knee had a bruise which was the area where there was an aspiration done by interventional radiology. She has +2 dorsalis pedis and posterior tibialis. Ankle had full range of motion. 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 ALLERGIES: No known drug allergies. MEDICATIONS: - vancomycin 1 gram IV every eight hours - morphine as needed for pain - ceftriaxone 2 grams IV every 24 hours - heparin 5000 units subcutaneous every eight hours - Tylenol 650 mg by mouth every four hours as needed - Percocet one tablet by mouth every four hours as needed - Effexor 150 mg daily LABORATORY DATA: White count on admission was 34.1. On August 09 the next day, white count was 32.4. At night after she had received clindamycin, white count was down to 25.8, hemoglobin 10.7, hematocrit 32.3, platelets 285, 91% neutrophils, 4% of lymphocytes. Sodium 137, potassium 4.5, chloride 109, bicarb 23, BUN 10, creatinine 0.72, glucose 94, calcium 7.6, magnesium 1.8, CRP 23.4. MICROBIOLOGY: Culture from throat from July 30 was group C strep. August 08 blood cultures two sets were no growth after 24 hours. Aerobic culture from the left leg aspiration done by radiology had Group A Streptococcus and anaerobic culture was negative. MRSA screen was negative. IMAGING: August 08, x-ray had no fracture or dislocation of the left knee. Extremity ultrasound showed a palpable area in right area on the ultrasound. There was area of cobblestoning of the fat with possible edema and a small fluid zone in the fascial plane which was nonspecific. Hematoma or abscess which was aspirated. The MRI showed cellulitis and moderate nonencapsulated fluid in the fascial plane between the musculature and subcutaneous fat, predominantly anterolaterally extending above and below the knee with a length of about 20 cm, thickness of 1 cm. IMPRESSION: This is a 26-year-old female with a previous history of depression, previous history of IV heroin use with no recent use, who presented with a complicated skin and soft tissue infection with cellulitis and possibility of necrotizing fasciitis. Clinically the patient's cellulitis has gotten a little worse between yesterday and today, but her white count with antibiotic has improved in 24 hours from 34,000 to 25,000 after she was started on IV vancomycin to cover for MRSA, Rocephin for gram-negative, and clindamycin to inhibit group A toxin production. If the patient continues to have fever or worsening pain, please schedule a followup MRI for the morning. If she develops any symptoms of necrotizing fasciitis or pain is much worse or fever or white count worsens. Repeat MRI and reconsult surgery or transfer to [facility]. PLAN: Continue IV vancomycin until results of cultures are available. If no MRSA, discontinue vancomycin. Continue IV Rocephin 2 grams every 24 hours. Add clindamycin at 900 mg every eight hours to inhibit toxin production. Will continue to follow.
--- NOTE | 2016-08-12 17:11 | IPN ---
DATE: 08/12/2016 I was in communication with Dr. Cortes this weekend. He had elected to transfer the patient to [facility] on Friday. He also had tried to reach Dr. Davis, who apparently was the treating physician at [facility]. We tried to reach him a couple times but never heard back. I tried to reach Dr. Davis today, called first thing this morning to try to get an update and to find out how the patient is doing and what transpired. Apparently her condition had worsened on Friday or her redness had progressed, even though her white count had been coming down. She had not been having pain at rest but only pain with palpation in the reddened areas. Hopefully we will hear back from the treating general surgeon at [facility] to get an update.
--- NOTE | 2016-08-12 21:22 | IPN ---
DATE: 08/12/[address] Davis who took care of the patient at [facility] yesterday and Friday night. He said he was relatively puzzled by this situation and ended up taking her to the operating room on Friday and opening up the area where she had maximal cellulitis and basically washed out a little bit of fluid, did fasciotomies etc. He did not feel she had a compartment syndrome. He said her fascia all look fine and that she had no evidence of necrotizing fasciitis and he said that she is getting better. He was puzzled like we were that she was not getting better with cellulitis on appropriate antibiotic therapy. But, he reassured me that she is improving and that her fascia looked fine. There was no evidence of necrotizing fasciitis or compartment syndrome. I if she may at some level be immunocompromised.
== END 2016-08-10 21:18 | disposition short-term general hospital (02) | DRG 720 ==
LOC: M ED 09:27 → M ED INP 12:41 → M MSPAV 15:16
PROVIDERS: ADMIT Hospitalist; ATTEND Hospitalist
PROC: 0S9D3ZX Drainage of Left Knee Joint, Percutaneous Approach, Diagnostic (ICD-10-PCS; 2016-08-08)
PROC: 05HM33Z Insertion of Infusion Device into Right Internal Jugular Vein, Percutaneous Approach (ICD-10-PCS; principal; 2016-08-10)
DX: A41.9 Sepsis, unspecified organism (principal); L03.116 Cellulitis of left lower limb; F41.9 Anxiety disorder, unspecified; G47.00 Insomnia, unspecified; B95.0 Streptococcus, group A, as the cause of diseases classified elsewhere; F17.210 Nicotine dependence, cigarettes, uncomplicated; K59.00 Constipation, unspecified; Z79.1 Long term (current) use of non-steroidal anti-inflammatories (NSAID); Z79.899 Other long term (current) drug therapy; Z86.14 Personal history of Methicillin resistant Staphylococcus aureus infection

== ENCOUNTER 2017-05-04 22:46 | Emergency (ER) | payer OTHER, MEDICAID ==
[2017-05-04] MEDS: ACETAMINOPHEN 325 MG TAB PO (23:45)
== END 2017-05-05 00:05 | disposition home or self-care (01) ==
LOC: M ED 05-05 00:05
DX: S00.03XA Contusion of scalp, initial encounter (principal); W22.8XXA Striking against or struck by other objects, initial encounter; Y92.149 Unspecified place in prison as the place of occurrence of the external cause; F33.9 Major depressive disorder, recurrent, unspecified; Z79.899 Other long term (current) drug therapy; Z87.891 Personal history of nicotine dependence
CPT/HCPCS: 70450

== ENCOUNTER 2020-12-18 03:27 | Inpatient (IN) | payer MEDICAID, OTHER ==
[~2020-12-18] VITALS: Ht 167.6 cm; Wt 54.5 kg
[~2020-12-18 03:27] MED LIST changes: +BUPR10TASR PO; +EFFE75CA2 PO; -EFFE75CA75 PO; +HYDR-3363 PO; -HYDR25T PO; +IBUPOTC PO; +NAPR-837 PO; -NAPR500T PO; +TRAZ-252 PO; -TRAZ50TA4 PO
--- OUTSIDE RECORDS SUMMARY | 2020-12-18 03:31 | CCD ---
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 If such information is present, then the following federally mandated warning applies: This information has been disclosed to you from records protected by federal confidentiality rules (42 CFR part 2). The federal rules prohibit you from making any further disclosure of this information unless further disclosure is expressly permitted by the written consent of the person to whom it pertains or as otherwise permitted by 42 CFR part 2. A general authorization for the release of medical or other information is NOT sufficient for this purpose. The Federal rules restrict any use of the information to criminally investigate or prosecute any alcohol or drug abuse patient.The records that you are about to access may contain highly sensitive health information, the redisclosure of which is protected by Article 27-F of the [place] State Public Health law. If you continue you may have access to information: Regarding HIV / AIDS; Provided by facilities licensed or operated by the [facility]; or Provided by the [facility] for People With Developmental Disabilities. If such information is present, then the following [facility] mandated warning applies: This information has been disclosed to you from confidential records which are protected by state law. State law prohibits you from making any further disclosure of this information without the specific written consent of the person to whom it pertains, or as otherwise permitted by law. Any unauthorized further disclosure in violation of state law may result in a fine or care home sentence or both. A general authorization for the release of medical or other information is NOT sufficient authorization for further disc losure. Allergies and Adverse Reactions Type Description Substance Reaction Status Data Source(s ) Propensity to adverse reactions NO KNOWN ALLERGIES NO KNOWN ALLERGIES [facility] Propensity to adverse reactions AMOXICILLIN Amoxicillin Rash [facility] Family History Family Member Name Family Member Gender Family Member Status Date o f Status Description Data Source(s) Unknown Female Problem [facility] Encounters Encounter Providers Location Date Indications Data Source(s ) Outpatient 12/25/2020 12:00:00 AM [facility] Outpatient 12/18/2020 12:00:00 AM T [facility] Outpatient Attender: DEIDRE GOETZ MD [id number] 12/11/2020 12:00:0 0 AM [facility] Outpatient Attender: DEIDRE GOETZ MDReferrer: DEIDRE Olsen MD 12/04/2020 12:00:00 AM EDT Opioid dependence, uncomplicated [facility] Opioid dependence, uncomplicated Outpatient Attender: DEIDRE GOETZ MD [id number] 12/04 12:00:00 AM EDT - 12/04/2020 03:01:36 PM EDT consult [facility] consult Medications Medication Brand Name Start Date Product Form Dose Route Admi nistrative Instructions Pharmacy Instructions Status Indications Reaction Description Data Source(s) 8-2 mg 12/05/2020 12:00:00 AM EDT film 14 DISSOLVE 2 FILMS UNDER THE TONGUE ONCE DAILY FOR 7 DAYS MAXIMUM DAILY DOSE = 2 FILMS DISSOLVE 2 FILMS UNDER THE TONGUE ONCE DAILY FOR 7 DAYS MAXIMUM DAILY DOSE = 2 FILMS SOLD: 12/11/2020 [facility] Cyclobenzaprine hydrochloride 10 MG Oral Tablet CYCLOBENZAPR INE HCL 11/27/2020 12:00:00 AM EDT tablet 90 TAKE ONE TABLET BY MOUTH THREE TIMES A DAY TAKE ONE TABLET BY MOUTH THREE TIMES A DAY SOLD: 11/27/2020 [facility] 50 mcg (2,000 unit) 11/27/2020 12:00:00 AM EDT tablet 30 TAKE ONE TABLET BY MOUTH ONCE DAILY TAKE ONE TABLET BY MOUTH ONCE DAILY SOLD: 11/27/2020 [facility] 600 mg 11/27/2020 12:00:00 AM EDT tablet 120 TAKE ONE TABLET BY MOUTH EVERY 6 HOURS NEEDED FOR MILD PAIN TAKE ONE TABLET BY MOUTH EVERY 6 HOURS A S NEEDED FOR MILD PAIN SOLD: 11/27/2020 [facility] 15 mg 11/23/2020 12:00:00 AM EDT tablet 30 TAKE ONE TABLET BY MOUTH ONCE DAILY AT BEDTIME TAKE ONE TABLET BY MOUTH ONCE DAILY AT BEDTIME SOLD: 1 [facility] 150 mg 11/23/2020 12:00:00 AM EDT capsule,extended releas e 24hr 30 TAKE ONE CAPSULE BY MOUTH ONCE DAILY WITH 75MG CAPSULE TAKE ONE CAPSULE BY MOUTH ONCE DAILY WITH 75MG CAPSULE SOLD: 11/27/2020 [facility] Mirtazapine 15 MG Oral Tablet Mirtazapine 10/27/2019 04:00:00 AM E DT 1.0 Tablet Oral active [employer] ([employer]) 24 HR venlafaxine 150 MG Extended Release Oral Capsule Venla faxine HCl 10/27/2019 04:00:00 AM EDT 1.0 Capsule Oral active [employer]) lamotrigine 200 MG Oral Tablet lamoTRIgine 10/27/2019 04:00:00 AM EDT 1.0 Tablet Oral active [employer]) Buprenorphine 8 MG / Naloxone 2 MG Oral Strip [Suboxone] Sub oxone 10/21/2019 04:00:00 AM EDT 1.0 Film Sublingual active [employer] ([employer]) Docusate Sodium 100 MG Oral Capsule [Colace] Colace 04:00:00 AM EDT 1.0 Each Oral active [employer]AR T ([employer]) Docusate Sodium 50 MG / sennosides, PENITENTIARY 8.6 MG Oral Tablet S jhoana Plus 10/12/2019 04:00:00 AM EDT 1.0 Tablet Oral active [employer] ([employer]) 24 HR venlafaxine 150 MG Extended Release Oral Capsule Venla faxine HCl 08/26/2019 04:00:00 AM EDT 1.0 Capsule Oral active [employer] ([employer]) Mirtazapine 15 MG Oral Tablet Mirtazapine 08/26/2019 04:00:00 AM E DT 1.0 Tablet Oral active [employer] ([employer]) lamotrigine 200 MG Oral Tablet lamoTRIgine 08/26/2019 04:00:00 AM EDT 1.0 Tablet Oral active [employer] ([employer]) Insurance Providers Payer name Policy type / Coverage type Policy ID Covered constitution party ID Covered constitution party's relationship to cervantes Policy Cervantse Plan Information MEDICAID M [id number] Self [id number] EXCELLUS I [id number] Self [id number] Juan Commercial [id number] Self JUAN I [id number] Self [id number] MEDICAID M [id number] Self [id number] [facility] I [id number] Self [id number] MEDICAID [id number] SP [id number] [facility] [id number] S [id number] SELF PAY SP UNAVAILABLE S UNAVAILA BLE MEDICAID [facility] [id number] S [id number] HMOBLUE OPTION MC 2 [id number] SELF PAY 2 UNAVAILABLE 1 UNAVAILA BLE O BLUE [id number] SP [id number] MEDICAID 3 [id number] 1 [id number] BLUE CHOICE OPTIONS 7 [id number] SELFPAY 5 UNAVAILABLE 1 UNAVAILA BLE SELF PAY 5 UNAVAILABLE 1 UNAVAILA BLE [facility] DEPT.OF CORRECTIONAL [id number] SP [id number] [facility] DEPT [id number] SP [id number] MEDICAID [id number] SP [id number] MEDICAID M [id number] S [id number] SELF PAY UNAVAILABLE SP UNAVAILA BLE JUAN [id number] SP [id number] Problems, Conditions, and Diagnoses Code Display Name Description Problem Type Effective Dates Data Source(s) F11.20 Opioid dependence, uncomplicated Opioid dependen ce, uncomplicated Diagnosis 12/04/2020 02:03:00 PM EDT [facility] consult consult Diagnosis 12/04/2020 01:47:10 PM ED T [facility] Surgeries/Procedures No Information Results ID Date Data Source [id number] 12/11/2020 11:30:52 AM EDT [facility] Name Value Range Interpretation Code Description Data Cintia rce(s) Supporting Document(s) Progress Note [facility] CTDTGh2bDuXAVzTx33/FGLhcGVBzl7AdXTpzCYj8DWinIRKqW5KfJRQ2mK1zQXM2TNcASdVjSqOqAGK9 lbm [file] AgICAgICAgICAgICAgICAgICAgICAgICAgICAgICAgICAgICAgICAgICAgICAgICAgICAgICAgICAgIC AgICAgICAgICAgICAgDQogICAgICAgICAgICAgICAg ICAgICAgICAgICAgICAgICAgICAgICAgICAgICAgICAgICAgICAgICAgICAgICAgICAgICAgICAgICAg ICAgICAgICAgICAgICAgICAgICAgICAgDQogICAgICAgICAgICAgICAgICAgICAgICAgICAgICAgICAg ICAgICAgICAgICAgICAgICAgICAgICAgICAgICAgIC AgICAgICAgICAgICAgICAgICAgICAgICAgICAgICAgICAgDQogICAgICAgICAgICAgICAgICAgICAgIC AgICAgICAgICAgICAgICAgICAgICAgICAgICAgICAgICAgICAgICAgICAgICAgICAgICAgICAgICAgIC AgICAgICAgICAgICAgICAgDQogICAgICAgICAgICAg ICAgICAgICAgICAgICAgICAgICAgICAgICAgICAgICAgICAgICAgICAgICAgICAgICAgICAgICAgICAg ICAgICAgICAgICAgICAgICAgICAgICAgICAgDQogICAgICAgICAgICAgICAgICAgICAgICAgICAgICAg ICAgICAgICAgICAgICAgICAgICAgICAgICAgICAgIC AgICAgICAgICAgICAgICAgICAgICAgICAgICAgICAgICAgICAgDQogICAgICAgICAgICAgICAgICAgIC AgICAgICAgICAgICAgICAgICAgICAgICAgICAgICAgICAgICAgICAgICAgICAgICAgICAgICAgICAgIC AgICAgICAgICAgICAgICAgICAgDQogICAgICAgICAg ICAgICAgICAgICAgICAgICAgICAgICAgICAgICAgICAgICAgICAgICAgICAgICAgICAgICAgICAgICAg ICAgICAgICAgICAgICAgICAgICAgICAgICAgICAgDQogICAgICAgICAgICAgICAgICAgICAgICAgICAg ICAgICAgICAgICAgICAgICAgICAgICAgICAgICAgIC AgICAgICAgICAgICAgICAgICAgICAgICAgICAgICAgICAgICAgICAgDQogICAgICAgICAgICAgICAgIC AgICAgICAgICAgICAgICAgICAgICAgICAgICAgICAgICAgICAgICAgICAgICAgICAgICAgICAgICAgIC EyOYArRAIfPERqIKNwLHKzXUTaBVNeRGn5W7leZQWd OSEoQI4iMDj6Td5+OZuVWxSyAYE0ohOnxC0PDA6yx7QrIVcpMMArc5IjOSc5PJ2QXQPkFZjwEV0RUTrg ld7OQJQhFBRliFKMz8fuIwJdHFF3MBApRtiuXC4LENLrN1lkexFpTTErACGIJOohUEMFQIIgUXLuFaJf YwVjOHSaKXRjCZUKJBN2ARFbIpQzYZceSL8Qs9BgbL A2DQo+Vb4OXD5es5VmDLbcNBIsSB2qle0THKiNPiSnR0OpwoR5FUE2UYBlBd8GQCIiRYNjvFOxTAJlCU DAUzVnM4VgtA28OXUTBt4+QZzavgTiHwpYRzV2TRMtd2YcVFz7MA9FKSHcZKj2cLToUXMuK2Qjc0KhBf 90ZXMgYnkgUmlzaGFuYSBTIENvaGVuLCBNRCBhdCAx KI2aVM7qIUZqYYOvKmSlTXDHQS4YBONyGLFfyRInZCSlTNYAJZ9CNVblDFJ9CLYpsuKhdKKkHNxaHI7D YXJlbnQgMzggMCBSDQo+Sm6MDF6aa9JzZPc2QPWgf2YqKHr9CU3BJYQbUYwcRSKgWK3mi2SwU3S1ZrK9 pPWxV3fyuiliD0WazbYosgBrKOZxXWFcXE1FLF8SIT 2KUFZjPJqkDM4KTWX1QLd8BMGqInOtUMElJvU8WJmcYM7FQWDhCTU8YI8QJN5OLuqqN7TIGLogtZRwub vlE2XojV5rtiMyBprjYFy1aX0zbNY4YZ5koD37px9mu7taX4QszQyznqrwM4MvmW4zI470AGMaLmXvWy BmdinaYg5cJHe+Wo8NZN5ft0IcOYr6TOPeWV6abm0O UUaJIqLpD6C2qIGgA7J3OLyxBi6HTMJwQWHiRhRrIFYDUJykGW6RRE0bhcZ6DC5EmQYnMJTaPXGepHOl SQy4N74crUQbZObmBC3DDKJ+Abdi+Zv8IXAJfYNQqYNNiDpSgVCARKcSoS5RyC9OGf2XfM5ZxPK02rJfp yxXeDCmfKJ6APX7rHGDiRHRUFK4MtEDtbY6lavRsNO QaREETKrCjN20wvTWkEQNjLVE4JOZiFo2JYWVjS6KomvTqlTerphXkJZVqBVPHWP0NWQayqgDzgTDjeQ hgSL81oXkoWU3LAe0BGkEyEG8lqv7KnCXwWe3UTEX9XV3STOChPBGhUXEdYKO8VIDyEjVvUEdjIHEhHP NvMZO7EESjFUWxLX7RPpZlVEImEeu9INWpQCUbEHWv co2QSAPvJRM4XSN1UtSkHSLiMMRzDUrqXXMeFSVwQKA7DNRkXWKrYM9JGaWxSQAwNOC0TpIrVGBlDUVj uz9ZESJoSVZvQig9XCJgRZHaFKBfCSvsNDFaOJU0GIXyUKMsBRDlOW8UPiZuGRYiCXB8ZIChWWPsZBHr il8OUUAgEKHwPqM8VUTtCVHiJFQbOLhbVOLaBMG9US U4IZCzKRRjPO0RMsLaVINlRTLkTUHtQBKqBWKcoh6CEWPxQDVvHsj7QNNzHXSsKVKdXBrsQIUaGBPuOP F2VHUyIHMpJS6VBjXlFHZcLZA4DSEkPPNrIDMfhf2HQKZbGYGiMAg8SUUiYFDhTWAwUKjrNWCoSZG5XW M4TCXzQDIkXP4GCfZyALPoICc7ZOAsQIUoKWShdw5M BOEvJVAtBLRjOKYdWYJsITCpOZlgJLVfPJR2AGUcHBDtXOMnKW8YWwTxAUEpHYi3FSGbTWQwCYIwmn2J RCYhXYMcYEl7GZWwJRSvTRGfDGbdTXIzDIDrIJQ7CVKwNTReFV7SScEbIPKlGeAmYDKlYVCnZQKhtf6E LGNbEAUhGZf3XMWdJCLsMZCkTDgvOWKhWKFqNJq4PA WtKTWzPD3KMwKyRFFfJvDgBFlbFRFhGJLxaa7LNYAsENMgKoC5OFSuSXPkGNLiLKhgCZFrOWLvKdT7LD ShDGRiII3DCcStSACsFrL0LRjfZNLxXMDwoq1YOXFgIMItQvelPNOwINJfCXPqFWjhXMAgXKP9WCPaHY AuHSGnPG9HMpIiAKCyHrl8VFEcXLItLGQkuc6EXLCa HGLtEWO5GKEyERWuSSMxGFlsQFHcHAN2Bps8FAUmCEVlSV1CAcUcHZIiNwe4XqUuMOEdYNOizi3UICGp AAUyHBa3WjOlHNHrVWGfZKxnGVSeVMOjVtZ8IIUzWXNeHF4DBeOmSNUsGOU4PqwxQQTyOYDmqc9GSZYf ILA0XUl5VYSgWWQuYKHzMYmeKGSkMAJzYWM9ZJEcHH RvNR5SFiXbOOxmGNEQAbz3ENmhY9g4AMK2HY9MZ8Uwn0QzARYaKQKGOZakIB9cruHzGLWuTc6MR2sEOb epZQXcRZKkXZR6UXCmCgVeGFGeS6HiMMGuWVP2TWCrQg2zXNC9Y5AwPIHqGLzxNMCjTlO5POCpMLJ7Ql P8PFW0TcS9MsJyLI6BJp5DDyI7SDN6hIVdTp8WYFVqWQYRHyTdVX7CJHg= ID Date Data Source [id number] 12/04/2020 02:59:29 PM EDT [facility] Name Value Range Interpretation Code Description Data Cintia rce(s) Supporting Document(s) Progress Note [facility] NWZIHu9xIqVICmQv56/RPLgiXMDsa5GjNBoeZEb2QWxkKRWnI4MwNON6hX2rWUL1VGyPZfStIuEgMUV0 lbm AvEwqZDdFoDSYqRrlVExHiFGnvRfeaoKHdKV3VyYK8EDJvQ70rMHCeONJgF0DjKXF1TGd+Lm6FVXAyvF AuZC1AOsqV2C0rliuBOy7wtI/MCbRkA5Ejcz+YvwFaymFOuQOlWhDY4hLUsyy22DO0ytSS6O/o0T7pY6 q6tGN3W2bHPch49WZ4bswyTFHFcds//KoOQ9+yLLX6 7/rlHzxumi3299/UZpjrrIdt/ibBbModH7YA0lV4f1448Zzg58HYM2yxc6netv3vtILXXrkaGmje4Rxd k5Om59b7zJpAFf0Z7HTHlBg+vX6KGHqSg1JMLC2y+CINTIA/cZPBGTvyaHksbAxIdVFI3WL9q5SlR5yaGd9 4/Thh+gJYXJ1c2g5RBI5i17pVYdo2Mp5RvfTtYoYKz YgZBu0z0qGgCJX90xwmL0Lnx9fqRd+DMEIL3ebwF6Vepey5Ko2lD4v30YJ9ghbBFsJWt2R0rEh0H7VEU GxlVM+ioGi2TorD2L99yhtiJ0vwWIDoJUPkCGw7gc7CcwV0F53waP9Mq5PcRY2vU4U0+kq820uxgW5yP Sx3jNs8LJ43Gufeocre6aHYmYHyUZfCUOO1pHhA1Oe VuBw3D/6i0jd7Dx6Br4Y8ykv1I08iRwSbatxd3TmxZFEWkNIfJpA4DSdmgyzii51FHTdaEo76ywyb7uc xpoqX5zQnxzFi33mUcwrdSh/6IEZJ0iKBKcd8E1L4KHkIQmEg5lWEvmqcZd9piElDD/84xSK7Mq08kan EZUjNzw4SqQm0OLuXhjjkRrG66fXG+Rzbf/Dc8NG18 Hl2wQ07+xmUmKuxqYPIRIp7AYB//wclNR6Zi29qzBgKBzmBl9jAkU4w3Ln98xQEnFjWwEEqtP9Xdsz0V +prRgTBT+n2p8+XBD/r4gHTpUXgDF8Az9L6iFhJFVBnA0nUFyCcsHqcu9eIqIxUG+NoonuFcx3X3jV1l 0Gfb9txfZvekqobvQG7ptzfhRTxaelqDMZSvxd+7C5 [file] eAqYXjCUUVeQtoTJUJwonwqOdC/yAtNolAhMgxjrNK OUyz57CMX2j8ZHyOP6RLAHB/jyqcbNIf07hY07WQuRFhsTQDUaxpVWw72Xxb2IVVxhik+NKUmLRA2gWt 1nHYRqx9Rv3FREMc7p4HyqXhLLXXIcKfSdbF7WhNq50jToE1kxIKe10C52N3JQbN9EizYVjRy+guMWTT DKxUV7p0IATxzjP69HwMFJl4IsKvgUMMasQoOzl/Y1 dn1Kfr0FM/afWlUcTCxGMA6jzW8lt2PEQAbv4L5VrADQY8lIZgN3xhgSwbp47q4TJJ0QeWLEU3AH+vr9 WSGR5YM+HPAHF/MGfpvp0FY0BwJcSvAAECiOz7faGFHZ4G9R8aTwuCCmHLLoW+mq7Rg47TWhNAjDHyPt NOEybhlS56G+group marketing vp+PMNhmsIu+n1fVxZyHsucIGYHCYj [file] ICAgICAgICAgICAgICAgICAgICAgICAgICAgICAgICAgICAgICAgICAgICAgICAgICAgICAgICAgICAg ICAgICAgICAgICAgICAgICAgICANCiAgICAgICAgICAgICAgICAgICAgICAgICAgICAgICAgICAgICAg ICAgICAgICAgICAgICAgICAgICAgICAgICAgICAgIC AgICAgICAgICAgICAgICAgICAgICAgICAgICAgICANCiAgICAgICAgICAgICAgICAgICAgICAgICAgIC AgICAgICAgICAgICAgICAgICAgICAgICAgICAgICAgICAgICAgICAgICAgICAgICAgICAgICAgICAgIC AgICAgICAgICAgICANCiAgICAgICAgICAgICAgICAg ICAgICAgICAgICAgICAgICAgICAgICAgICAgICAgICAgICAgICAgICAgICAgICAgICAgICAgICAgICAg ICAgICAgICAgICAgICAgICAgICAgICANCiAgICAgICAgICAgICAgICAgICAgICAgICAgICAgICAgICAg ICAgICAgICAgICAgICAgICAgICAgICAgICAgICAgIC AgICAgICAgICAgICAgICAgICAgICAgICAgICAgICAgICANCiAgICAgICAgICAgICAgICAgICAgICAgIC AgICAgICAgICAgICAgICAgICAgICAgICAgICAgICAgICAgICAgICAgICAgICAgICAgICAgICAgICAgIC AgICAgICAgICAgICAgICANCiAgICAgICAgICAgICAg ICAgICAgICAgICAgICAgICAgICAgICAgICAgICAgICAgICAgICAgICAgICAgICAgICAgICAgICAgICAg ICAgICAgICAgICAgICAgICAgICAgICAgICANCiAgICAgICAgICAgICAgICAgICAgICAgICAgICAgICAg ICAgICAgICAgICAgICAgICAgICAgICAgICAgICAgIC AgICAgICAgICAgICAgICAgICAgICAgICAgICAgICAgICAgICANCiAgICAgICAgICAgICAgICAgICAgIC AgICAgICAgICAgICAgICAgICAgICAgICAgICAgICAgICAgICAgICAgICAgICAgICAgICAgICAgICAgIC AgICAgICAgICAgICAgICAgICANCiAgICAgICAgICAg ICAgICAgICAgICAgICAgICAgICAgICAgICAgICAgICAgICAgICAgICAgICAgICAgICAgICAgICAgICAg ICAgICAgICAgICAgICAgICAgICAgICAgICAgICANCjw/rNRhP3zwtWThyuU2N8tqYl2MOy4TYM2ry8Zd IUKfKByunwTlZpwOMvOaTFZqFyoEErp0GUcuIK8KbA RwC8ZdP9LzWOcfKD4ZVAHoBUWmvSClKNJiYIJsToE7EUDjZSakVN3YuQGuBVbnDIOxZWRpCTVoMYUoNL HfFJBUUUNrUNNfRoKbZSUuUANtQJYuDNGCYC4MQqVmJ9NaaC94HPCEDn8+DQplbmRvYmoNCjMwIDAgb2 YiFXg4OA4PXMYeCnpyj2BbJaDwIWBINXvpBK2MKUN2 TFMfWVHzKh5WJNXaR421htAvVO5HSd7RBsXlRG1oqx9GDfGpBBLxHpwPZol1DUraGG6ZbCVlSMcKjs9f eqSxzfGSh3ChvwNwfACHkNYoXG8jUQHnT63qNX5rXN2JVKZ9RGGdBtH9EgAqSmOhTFN8JAFeOB3xWSnm VY3UQRC2DRhmQMTzDKHqD4bCFfBxESQbLOOvaOtsPK 3AGxFkL7QgprOolIOxHXZhPBEPMj9+FDnfxeTgXpzGPqBfCHQlBwhFHsk0CJjwHE8YhTFjRB6Cos1uxQ ElM1ElfPhsVCUnKAapyqAqGr9aBAGbFPtuOVJrDH5iO8maV6evK9FsISEHArPsW6MiG9AtGdB0MOT6LJ B9BGFzGsGfGV7DRQSnQGC1ZM4WQQ0QTkvcY9EUPHyc cFSvpqvtB9YwwA1vqlJcYgynIOa8sT0ecXK0GD8wwO76wz1rp7ulJ1TftLdimpajN6YfdG9sQ010YDUi QzUxWkChaojzEd1bZRb+Ak4CFA2tn4PqEZutJwPnAI3fld7JMRsKBuTqC9E9dXScQ4T8QUvjVk9LBVWj IJUiVtgdCHGBGRbeWA6ZWB0vxgV8FT8RhFWhGEDoYM KghWWbLZg2H33qiXSeNKklZD7DMUR+Abdi+Sy8IFCHmXTHkPPPcOpWlDNKOIbIzD2PsU7WNu7LlT1HwPF 59eIcjpxIhUDlcWG3NWY8yXVKwTAHHFL8FnYSqtX8fxdEdVSLtAPPUKaFaD48pmTMdCSVsZCD1YZLvIj 1VSOLkC6ZyxvZwuAsrxfFqFXZnDXHXWT7IFCdprxGx xUHpxDtlPG89aDylEI1TDz3WUuWhYM6qal2NkGQiFr3BZWQmCe6SHLApAPZhDRIwFGP1SIYyAtUtCOvv KIKuAEAmMDE1HCRaQSIrGC2AQiNiMXFyUgL3CFWxEAJbDTYawl3UNULrQRSfYNZ4WbNzTSPqKWYkKHgz MKYcVCAqXTA1UKVnQYKjFO4VNdNeVSKxFYJqOSyrUK WnDDGabk5GZCNnFCVeOEnqNgKtISHjNTIpCDbvUXFzHMA7QaC8BBPfGHEbHE3HCsGfSLItFGstTTTeSY CtEINkxl1YXQWuSWXiDtLfNWZdUFEoZCWpJKiyLWYiIZE5GXq0HOAoTPAjLV4IZsOcSNTySWJjBAKhFL IuQDXbzb5DOQJmFRPvBaI3XNOgKJTuHZSdPZciAFLx ADWfEiP5MMHlUFGnPP1MTyYoKDNpJWQ7SAVvKFUrTIJzsk7FPCRfNKMzHgB5JNLzBHRlUIZmWFdyASAm JZR9Kuw0MYZuGEBmQT4HJyMnQSTiHRj7DIGpFKIvSCJvyt4BQWLaVDJaBJX6GzCyNICoMZToPBghCPHp SHA0TeH4ZDNrOBEmOP1NGfKzOCBnZCc7QhZoCMMqLP Ddem9YJJRlFJFhZYc5XUHyMCYyMZMuYQrwFRScCTAbCXbnZQXyUBFpAI4NZxXrRNEwQiCoIhXsCOBuGA Tmph5QWIUaZZLdREchXZGfLMUjZHGdSUilSQVmJCFwHAL4DONwNYUwWP1YQsTzAGWeBbYpJkPpVFNpBM Ffwm0OFEBuBJGgOkL7JHYbRZZaJPAcUUnhHSBjGXSi OxZuGIKcDPBcGD9CYsNkCOCoGjNrTqEfEJCuUFLdpn8SSISuCOUgOOTgATDoVBTrTLYsTTqoHHRqSKX7 WQl4OOPpHPMlCX0BCmLgSUWtNkK1FhJtINCgEMToep0GsEVvpFcqvd1QAOtYBm1NiVyfXIBrCXyaRf7t eBNbVrImLEONQy3FqlEdRSSvLQSYBUqcHAVpLNJ4Gv mvMOK9SCJ6YWPwPGAlLlKoVVcsSdniGjIzBfQvUrD1HQI0ZQC9ZGT3Oqy7SzRhMeTaGGGyC5GpTDWpVM E2Y2Q+KI0iMCx+Jp8Xy7GejuV8ssBtNFcqMPT5RZ8EBOJUD5XVPq== ID Date Data Source [id number] 12/04/2020 06:48:50 PM EDT [facility] Name Value Range Interpretation Code Description Data Cintia rce(s) Supporting Document(s) Choriogonadotropin ( test) [Presence] in Urine Ne [facility] NEGATIVE: either no HCG or too low to de tect, <20 mU/mL Specific gravity of Urine by Refractometry 1.033 1.003-1.030 H [facility] ID Date Data Source [id number] 12/04/2020 07:31:00 PM [facility] Name Value Range Interpretation Code Description Data Cintia rce(s) Supporting Document(s) Buprenorphine [Presence] in Urine Negative [facility] Results below the indicated cutoff(10 ng /mL), are reported as "Negative".Note - For medical purposed only.Not valid for legal or employment testing. ID Date Data Source [id number] 12/04/2020 07:31:00 PM [facility] Name Value Range Interpretation Code Description Data Cintia rce(s) Supporting Document(s) Amphetamine [Presence] in Urine by Screen method Negative [facility] Benzodiazepines [Presence] in Urine by Screen method [facility] Cannabinoids [Presence] in Urine by Screen method Negative [facility] Benzoylecgonine [Presence] in Urine by Screen method [facility] Methadone [Presence] in Urine by Screen method Negative [facility] Opiates [Presence] in Urine by Screen method [facility] Oxycodone [Presence] in Urine by Screen method [facility] Fentanyl+Norfentanyl [Presence] in Urine by Screen method Negative [facility] Service comment [facility] Results below the indicated cutoff (ng/m L), are reported as"Negative." Note: for medical purposes only; not valid for legalor employment testing. Procedure Social History No Information
--- OUTSIDE RECORDS SUMMARY | 2020-12-18 08:03 | CCD ---
Author Author [facility] Organization [facility] Address Unknown Phone Unavailable Care Team Providers Care Molecular Physicist Name Role Phone Portia GOETZ MD Unavailable [...] is protected by Article 27-F of the [facility] Public Health law. If you continue you may have access to information: Regarding HIV / AIDS; Provided by facilities licensed or operated by the [facility] Office of Mental Health; or Provided by the [facility] Office for People With Developmental Disabilities. If such information is present, then the following [facility] mandated warning applies: This information has been [...] law may result in a fine or custodial sentence or both. A general authorization for the release of medical or other information is NOT sufficient authorization for further disc losure. Allergies and Adverse Reactions Type Description Substance Reaction Status Data Source(s ) Propensity to adverse reactions NO KNOWN ALLERGIES NO KNOWN ALLERGIES [facility] Propensity to adverse reactions AMOXICILLIN Amoxicillin Rash [facility] Family History Family Member Name Family Member Gender Family Member Status Date o f Status Description Data Source(s) Unknown Female Problem [facility] ([facility] Encounters Encounter Providers Location Date Indications Data Source(s ) Outpatient 12/25/2020 12:00:00 AM [facility] Outpatient 12/18/2020 12:00:00 AM T [facility] Outpatient Attender: DEIDRE GOETZ MD [id number] 12/11/2020 12:00:0 0 AM [facility] Outpatient Attender: DEIDRE GOETZ MDReferrer: DEIDRE Olsen MD 12/04/2020 12:00:00 AM EDT Opioid dependence, uncomplicated [facility] spital Opioid dependence, uncomplicated Outpatient Attender: DEIDRE GOETZ MD [id number] 12/04 12:00:00 AM EDT - 12/04/2020 03:01:36 PM EDT consult [facility] consult Medications Medication Brand Name [...] NEEDED FOR MILD PAIN SOLD: 11/27/2020 [place] Amuro gs 15 mg 11/23/2020 12:00:00 AM EDT [...] E DT 1.0 Tablet Oral active NETSMART (stylemarks) 24 HR venlafaxine 150 MG Extended Release Oral Capsule Venla faxine HCl 10/27/2019 04:00:00 AM EDT 1.0 Capsule Oral active NETSMART (stylemarks) lamotrigine 200 MG Oral Tablet lamoTRIgine 10/27/2019 04:00:00 AM EDT 1.0 Tablet Oral active NETSMART (stylemarks) Buprenorphine 8 MG / Naloxone 2 MG Oral Strip [Suboxone] Sub oxone 10/21/2019 04:00:00 AM EDT 1.0 Film Sublingual active NETSMART (stylemarks) Docusate Sodium 100 MG Oral Capsule [Colace] Colace 04:00:00 AM EDT 1.0 Each Oral active NETSMAR T (stylemarks) Docusate Sodium 50 MG / sennosides, HALFWAY 8.6 MG Oral Tablet S jhoana Plus 10/12/2019 04:00:00 AM EDT 1.0 Tablet Oral active NETSMART (stylemarks) 24 HR venlafaxine 150 MG Extended Release Oral Capsule Venla faxine HCl 08/26/2019 04:00:00 AM EDT 1.0 Capsule Oral active NETSMART (stylemarks) Mirtazapine 15 MG Oral Tablet Mirtazapine 08/26/2019 04:00:00 AM E DT 1.0 Tablet Oral active NETSMART (stylemarks) lamotrigine 200 MG Oral Tablet lamoTRIgine 08/26/2019 04:00:00 AM EDT 1.0 Tablet Oral active NETSMART (stylemarks) Insurance Providers Payer name Policy type / Coverage type Policy ID Covered libertarian ID Covered libertarian's relationship to cervantes Policy Cervantes Plan Information MEDICAID M [id number] Self [id number] EXCELLUS I [id number] Self [id number] [employer] [employer] [id number] Self DARNELL I [id number] Self [id number] MEDICAID M [id number] Self [id number] [facility] I [id number] Self [id number] DARNELL [id number] SP [id number] MEDICAID [id number] SP [id number] [facility] [id number] S [id number] SELF PAY SP UNAVAILABLE S UNAVAILA BLE MEDICAID [facility] [id number] S [id number] BC HMOBLUE OPTION MC 2 [id number] 1 [id number] SELF PAY 2 UNAVAILABLE 1 UNAVAILA BLE HMO BLUE [id number] SP [id number] MEDICAID 3 [id number] 1 [id number] BLUE CHOICE OPTIONS 7 [id number] SELFPAY 5 UNAVAILABLE 1 UNAVAILA BLE SELF PAY 5 UNAVAILABLE 1 UNAVAILA BLE [facility] [id number] SP [id number] [facility] DEPT.OF CORRECTIONAL [id number] SP [id number] [facility] DEPT [id number] SP [id number] MEDICAID [id number] SP [id number] MEDICAID M [id number] S [id number] SELF PAY UNAVAILABLE SP UNAVAILA BLE Problems, Conditions, and Diagnoses Code Display Name Description Problem Type Effective Dates Data Source(s) F11.20 Opioid dependence, uncomplicated Opioid dependen ce, uncomplicated Diagnosis 12/04/2020 02:03:00 PM EDT [facility] consult consult Diagnosis 12/04/2020 01:47:10 PM ED T [facility] Surgeries/Procedures No Information Results ID Date Data Source [id number] 12/11/2020 11:30:52 AM EDT [facility] Name Value Range Interpretation Code Description Data Cintia rce(s) Supporting Document(s) Progress Note [facility] AQBUPl6uAeCLZrRs87/YADpjPRXeu6NwQZiyOAq9WXdxBKYsH0RqIDH0rK0eRGS6EMcWAcLhFfXyYJZ3 lbm [file] AgICAgICAgICAgICAgICAgICAgICAgICAgICAgICAgICAgICAgICAgICAgICAgICAgICAgICAgICAgIC AgICAgICAgICAgICAgDQogICAgICAgICAgICAgICAg ICAgICAgICAgICAgICAgICAgICAgICAgICAgICAgICAgICAgICAgICAgICAgICAgICAgICAgICAgICAg ICAgICAgICAgICAgICAgICAgICAgICAgDQogICAgICAgICAgICAgICAgICAgICAgICAgICAgICAgICAg ICAgICAgICAgICAgICAgICAgICAgICAgICAgICAgIC AgICAgICAgICAgICAgICAgICAgICAgICAgICAgICAgICAgDQogICAgICAgICAgICAgICAgICAgICAgIC AgICAgICAgICAgICAgICAgICAgICAgICAgICAgICAgICAgICAgICAgICAgICAgICAgICAgICAgICAgIC AgICAgICAgICAgICAgICAgDQogICAgICAgICAgICAg ICAgICAgICAgICAgICAgICAgICAgICAgICAgICAgICAgICAgICAgICAgICAgICAgICAgICAgICAgICAg ICAgICAgICAgICAgICAgICAgICAgICAgICAgDQogICAgICAgICAgICAgICAgICAgICAgICAgICAgICAg ICAgICAgICAgICAgICAgICAgICAgICAgICAgICAgIC AgICAgICAgICAgICAgICAgICAgICAgICAgICAgICAgICAgICAgDQogICAgICAgICAgICAgICAgICAgIC AgICAgICAgICAgICAgICAgICAgICAgICAgICAgICAgICAgICAgICAgICAgICAgICAgICAgICAgICAgIC AgICAgICAgICAgICAgICAgICAgDQogICAgICAgICAg ICAgICAgICAgICAgICAgICAgICAgICAgICAgICAgICAgICAgICAgICAgICAgICAgICAgICAgICAgICAg ICAgICAgICAgICAgICAgICAgICAgICAgICAgICAgDQogICAgICAgICAgICAgICAgICAgICAgICAgICAg ICAgICAgICAgICAgICAgICAgICAgICAgICAgICAgIC AgICAgICAgICAgICAgICAgICAgICAgICAgICAgICAgICAgICAgICAgDQogICAgICAgICAgICAgICAgIC AgICAgICAgICAgICAgICAgICAgICAgICAgICAgICAgICAgICAgICAgICAgICAgICAgICAgICAgICAgIC IkVHXyEGQrQUPfSVGzCFMtOQEdVAByPCp5D9fyZTZm LIOsCZ0iLOd3Fr6+YRuKDvCpAPD6vhGaeY0XQR7wk6IzPOfbMHJuq0AzYXv0TT0KKRPaJIaxMR1YPNqc lj1IFEUfYRAzbIPUx8rqQbHsRVX7ZWRnOfjhZH6VVLMjM5gvlxMtLNOjKHLKQDvjBHHJXQIuRGRoGxKb MpVhBSWfLXGdDAFBWBY5IWFkAyOjRUpdQY3Tl9OfyD A2DQo+Jp1RDE7rh5CrNUvqHTEfYO0qge4ENSaFYlKoW7DyyfT6TQG4LBGrFs0GAOFcUFZhgGUbTWZdTA FMPfCvI3BzeS36AXIDKy5+WEyvvcCkWmmCQhO5ESNed9DxCPa9GP8ZRXScPWm9bANxKZPvO8Byz9UoVs 90ZXMgYnkgUmlzaGFuYSBTIENvaGVuLCBNRCBhdCAx QZ3nUH8oTVFfHSCtGwStAHQPBQ5NZHFtQZNdzFJfKTOzWOCLYX4IWRfdIHS9WXZfqzJbwQPiTWbmLD3M YXJlbnQgMzggMCBSDQo+Wk4CWU7bf6GqPAp2OAHlw0QiCGz3TM3ABDIoJSepKSLsPI4zw8BqL4F0ZzU4 vTLtR1hekwziO1MxyrClozFdJHLrDXIvEE2SEL6KBY 9XJQSvHMauHN3WDWZ6LJm8MKIkIpZbDXFbIrM3PDvrSP8RFQLlLIV6UW6CSK7JSexlW6XGQEvxyVAzdi alB6QeyB5rezUrBgniHGr1pZ3hxBJ9YV2ifD14bs0fj6stN0XmkGjadjvhS2SwoH2qN613DRCwTpGbMf IuhyniDo6gDYz+Cc1NUO8lv3DqQWb5JOIvJG9kdk2Z GRyJJlKiY1P5vMMhK5T4ZYnmDi7OOCNhUNLnJdGhKSQOWOifYT6YLJ6wwoU6HS9TbYRiWKSuIBSbkSGi FTw6W67jhHHmCZesZH0SDOE+Abdi+Tw8AWVNtTCMxHAQiAbFoJRTYBkTuA9AwV8ZNl8RbD0OiYK21rArt qrDzDRwxWQ1CYZ6jDEOyYPPSSE6FlAIlvL4wbsBoES XnPFKDUnAbE67dwGHeRDTqRMB8XPOrYb0XMDPkN9OfdsCmlGsdhpFyFLZpSTUCSD0BNKikzcKayMJuaY hbDM33fKyuRG9OGe0YNiWfPK0ilj7SrFUbXi1PZEN8QE4UCNUtYAEdIRTsDHR8FZUkLiAoFOorVDIeNZ TdHTV6EUAfPVVqUD9PLvXvZVNeYkb1BXFjNMSpSYIr uv7FDHJoHWW3QGJ5DdYpKNLkHAJyLYfhHYOzAIYzYBM4VCXbXQNnIT9LJfEeWHLfIHM2FdXuPHGsMYKo wx0DYWQaNKMiSxr6YUZbHTGaHKVuQYerHBKhTMQ2KIGcPTHdEGAhLL4GErQgQFEzLGQ2VNYzZISjSSGe hm9EIFBcGZPlIoE2OHUhDFGvXCToJRkaGWJzRKW8SF T5KQDiEDWhLY1QPvIcJJFkVEReGZDzVTTvCISnhh6TQLDbSJSgGsm7TFCwVBZjVLWvTDpcOXBgFURpQI B7MJChRTRjGB6NHyAzYTBtTOJ3EBAjIIPeRQCjll9BKQSnZLHhXTi8UATrZSGtMABiCPteDFBnANE0TD D0ZXPoWYPdMA6YYlDyXWEuEZv6GJZpEWAnHFOyaq1C HMLmZZAvDLQsDKYyJMVfPWAvESfwRQWtPZD5DLIxKHGfRTYyDR3LQgXdOBHwZFq6BHAtAXVkKHMped5R LEQpPQWlDSr4REWcQZAnACQsGJmpPBLsKWXnLWY4KHIxVIPtLX7UBeHeJAKsJgPsKWRlIMZdZSPuca2V OYQwFXGcYJx7JGHeFTIyPNUyZJxsFTCpDFMfNHt9OT SqBBIoEH3BLuYgMCEtPlFxHYqyCOBaDFTxqr6YSDAgMROkBuQ4DEKaZWFrOFPhFOzrVOVwXBTjOyB5CM GmKBIjSS6LZjCsKKAgDaQ2TXhqYRTbFYCfmk4APVYsWSFaRhzgVXCfTZLyANApXRhzZBTmAXY9VUXoBF PiMEJwIC2EYeBwMGYsYel3NTRfTCDxCNElju4FXWPh UYFeXWR6XJDyIQLwHTGpVLkkFTTiDZG5Rtx6RMExVJWkJQ7GPnSyTHQgInd0OeGxOXApXPTcwy2NVRHz ABGaDVf8NyZdMBGbGGKqSCyxJEBcRIYuHrX9IQZxENUwOO6DPwHsCRWsDHR9ZmxkHEDuMEBccx1HFKXg SWQ2HYt4XJYoTKQqZNEmTDvmAKMaZQWwPRP5BZJoAI OwDZ0ECxUnSHlnIHKWUbr9GOeuC5h7JHO0HR0WO3Dju8KsDGWrVTOZMYymYV0vudWwARUiCu7KH1uVLw buWUGpEXOxNKM3VRKwEeFcKAYpV6XgSSQuHCC6WXVaPh8uCRL2E9YlZGHbTUeoMJRcRvX1VQBrUIF0Oi Z1XTO4QbG3JtVqCI6OHq9HXgK6RTV6wLAjNb2SUKEcXSKIFrFmRR4CDOq= ID Date Data Source [id number] 12/04/2020 02:59:29 PM EDT [facility] Name Value Range Interpretation Code Description Data Cintia rce(s) Supporting Document(s) Progress Note [facility] RXWCBd3qWbDTSyZs05/SLXdySWFvl0WzTUidABa8OLlhOHGtU3HvCGU5vC0zOHQ9GYzGMdWmUkOjPWJ1 lbm GeHkcHZaXgHVDmBdtMDcCmFJyjJlxrbDAtJY9RyVS4VQQeV43xNBFcOXQyB7VcZVD1ELw+Qs0CEIIorZ DoUK3SUkwH2O8goedGXm9axF/HQwUhN1Qypz+JacRztzZEsBQcYqOP5xGMuhm94PS8xvTV3I/j4E5rS0 g9pMY6N3lPLte25GD1josqLBCWxtt//KoOQ9+yLLX6 7/xrDibtpj4974/UZpjrrIdt/ztGyNqdT6FI9rD9r2210Ade12PFJ4azi3nwmu1hrHJDWmzsInpy9Vqi h3Bv10k2rVeMOe3V3HTXsRc+gQ3QUXyFk3OHPT4o+CINTIA/vWFBCTgzdFpjdLcOqJHU7KN7r2ZrH1huGd7 4/Thh+dKWNY4l2s4FKQ4f29wNFyx5Vz5OygUqTiRZr DeVBu5o6dWsWSC70hfcO3Ifr5teCa+JORKQ9ftbY4Cvujs8Cw4eT9o82IE0zmtSOrNFe6F3bBr4S1NVC GxlVM+psOv4YemI0E62mebvQ6phZGWgYGFxNXq4mz9QozV7E49jtJ4Ri3VeFA1oS1S0+xq602ipfO2lI Vr6wZd2WD08Wenlregy6oHXaUCqVCzRYRO2mMdZ2Zf VuBw3D/3m9sg5Su9Cp6Y5pqs0M36tBnPuiloz2SopENJCnLXvWoX3SJtdkaaac44QJAesUc15xumu8bv ioqjT3oDazrPz99wXhxlcNc/0UZJS1uGHNac2N2I8MNlJUlHe1eHIjazaYa6tbIdOV/39uAG1Cj23bvd BDXtQmh6IvGh0YYjFkxyrKwX61vFS+Rzbf/Zl0UB25 Yo6rU09+tkCrFvyjMETZAu7NLG//ojcPO3Es03soZnDRbzEr4vWaL8l9In14aRXnBiVbYZjdK1Owfy4P +prRgTBT+n2p8+XBD/j4iDCjBTeXF6Qp0E6zEyGXNXpP1nALdLcePanp8zZdWqGA+HvtzpDtf5A0pL1b 6Vcu3qfkJxgntkyrVX7wqlojXMmhfjgMJWLeds+7C5 [file] eAqYXjCUUVeQtoTJUJwonwqOdC/yAtNolAhMgxjrNK PQgk18PUY9o7ZQxON5PWUHM/ldozzTSb86qL00DXsOKecAGOGbccWJy96Zlk8XZLtmme+QICkENC7vWm 4gRGJpu7Th4LSDHx9c1QbqKeDBZDBfTzQzpT6CwGh47kLeH5fuJWx25B29Y5BNwX8LxaVKpCr+guMWTT GFnFM1q2RLBduxQ76OjBZAp2YxQdlYCMgwAkYjm/Y1 zo3Rbd3IV/xbHePwSIsCHC6zzG1iq2AAVUmw8X1BnUQJA0rVHkI4redCugf28p0OJX0XkEBUW9SM+vr9 RVFU5YM+HPAHF/XIemns9OH4EdXlPvDDDAoGq9hnVEEI6T9G7qOtoTEvJUAyY+au2Dp38RZgYBiLEzUr CNZoaumY41S+vp hr diversity+PMNhmsIu+n6aOiOyBuoaTEWQMPx [file] ICAgICAgICAgICAgICAgICAgICAgICAgICAgICAgICAgICAgICAgICAgICAgICAgICAgICAgICAgICAg ICAgICAgICAgICAgICAgICAgICANCiAgICAgICAgICAgICAgICAgICAgICAgICAgICAgICAgICAgICAg ICAgICAgICAgICAgICAgICAgICAgICAgICAgICAgIC AgICAgICAgICAgICAgICAgICAgICAgICAgICAgICANCiAgICAgICAgICAgICAgICAgICAgICAgICAgIC AgICAgICAgICAgICAgICAgICAgICAgICAgICAgICAgICAgICAgICAgICAgICAgICAgICAgICAgICAgIC AgICAgICAgICAgICANCiAgICAgICAgICAgICAgICAg ICAgICAgICAgICAgICAgICAgICAgICAgICAgICAgICAgICAgICAgICAgICAgICAgICAgICAgICAgICAg ICAgICAgICAgICAgICAgICAgICAgICANCiAgICAgICAgICAgICAgICAgICAgICAgICAgICAgICAgICAg ICAgICAgICAgICAgICAgICAgICAgICAgICAgICAgIC AgICAgICAgICAgICAgICAgICAgICAgICAgICAgICAgICANCiAgICAgICAgICAgICAgICAgICAgICAgIC AgICAgICAgICAgICAgICAgICAgICAgICAgICAgICAgICAgICAgICAgICAgICAgICAgICAgICAgICAgIC AgICAgICAgICAgICAgICANCiAgICAgICAgICAgICAg ICAgICAgICAgICAgICAgICAgICAgICAgICAgICAgICAgICAgICAgICAgICAgICAgICAgICAgICAgICAg ICAgICAgICAgICAgICAgICAgICAgICAgICANCiAgICAgICAgICAgICAgICAgICAgICAgICAgICAgICAg ICAgICAgICAgICAgICAgICAgICAgICAgICAgICAgIC AgICAgICAgICAgICAgICAgICAgICAgICAgICAgICAgICAgICANCiAgICAgICAgICAgICAgICAgICAgIC AgICAgICAgICAgICAgICAgICAgICAgICAgICAgICAgICAgICAgICAgICAgICAgICAgICAgICAgICAgIC AgICAgICAgICAgICAgICAgICANCiAgICAgICAgICAg ICAgICAgICAgICAgICAgICAgICAgICAgICAgICAgICAgICAgICAgICAgICAgICAgICAgICAgICAgICAg ICAgICAgICAgICAgICAgICAgICAgICAgICAgICANCjw/mZVzX1zngXOvntD7D9viDb6QCj0POE8xv4Uw TYCaZRodmdDoJawPZeRmGRWrSfgAXnk2VJvmTR4ElN NiV2IqC4OzCXsbNL0OKUVlUZAguWVhXIGgDLAnQiC4SAJdWLaxJH6NbIXgJXksATWtFIQmNWOzJZWyKS TmYAKYFJWwVPBmWdDkABTwBJTdWXRtDCGWSG2KVfOcR7ErlC98GAARWl3+DQplbmRvYmoNCjMwIDAgb2 KoKAs4FA5ARIGwNobtg0SzTgUdGAXOSYtgSE9WJOX9 PXXxVKKiCe8QUMHgQ757pfIhPU8UDy5GEaDoUJ4wkm1ICkAaFNYpGxhAPvz2AQyuIK8BhOWoZHfNsa5d nxLhxeNMn2VrynZseSGCrIKgLU8pEJThT29eVH8xBA3BEIS0DZYjCsN1TxEpFmDdDZZ0FQQePJ3bTUba RH6YMYI6XAbdUVZcMXBmH0jQOtAfZSHxLNDpfOaeFQ 1GFaGbE4NoedGocXUdFQYuKURUDc7+OBqgjeBiLobTXoGuKUZkMshTKed3IJzmCW6TcRLhCS6Hlz9kdC TyR1NydMqtHFToLQdvooRjHi8mYNUxQVezADQmDB8dL7hyO4nmA3GnMSLWBhXiH5SeW9UnQxQ1KYW9GJ X7CLSlZoGfCE6KMUEbNMZ9XH1DLV1HJzvnR2WRIRns qZWglnkaN6HtzT1rxrKjNfnwOAo2kG1kzNV5KW1pzG98jz8gt3wsQ2HduZoorsiiD4RfvL4pQ445EUEi InQiKhFgyeouTx6tDMz+Cf6QCK8zj6EwTYhcZmCcFX6giu7OUXcCFxKxJ2D3aYIbV3L0JGpeTh8EQGJb FIHvSovfUVROKWqwTU5ZLM9jbeN0LR8YcSHxCZSzIT HtaGUoLTa9P35hkIUjEQnhRV6ITAI+Abdi+Uu7DBPZcQGNxMQQqJyNeGKSRJhUnW4MhX6WJb5DvD8HxBU 74qGjisjYaVEpnUT5NWF0hNCCnLGJSRV2WvLXxlH9ydhUmGWBuDEOEJoVoJ35ryAFaUJJsKUH1SEBxBb 9TDRPwV0WajrOynMnftcQiGIPiDTZCQO8GZAfzixRy aZLsdPdePE95xEgnPH9NFb1MNjHfSX1yhg2XrCZyDh2OTVChZc4GULKmNNHnCJJaSCX3SYTiHxHtFWyy ZPZuRBNzTMB6KWQlNVQqMZ2EJrHqRZVjBmW7BOTrQZRdINUnmy7ZENXpPVNpENU8VzSdSNOmSPRxYQqv XMZpNXOeMPZ0ZDPoIWDeXR4HJbRjDQCcEBUoIGisTP EvAFQjya6CKYVpFOGoEQcwVrMgSJQqJGQhAEfsQDWxQJZ4WtU4BABqULLaHL9ONvWoJGHfDLpbLDOtTT EmPCCafi5HQODlPHSrHrMlBABbGHYuLZKmPRlaGGHfNAC3FTc1HBRpGADgVA1HWfSoBDFsICZlCYCfEI IrRBPsne2PFUGtSRQpYzZ9EJSpPFMwUNKyOPbwPWCg HCXhMdZ4IQMxMEPuNR9REtUgBPGuDAH5ZFDpMBRtTFEoaq2FPVCeMLDxOtD0RGUkBWVaHGObSYceWODj ZHF5Czw5PFLcVUPvZA6QUfAfFPCfNUo0DZSwCNIxPQChst9CHAFbJFAqQCV5LcSeAGBmIRGaFCcoSPJn MNC5LlW9OQYpSKIcTE7GKgRaZPJxETo5WnPaQCWnRW Tuag0ZLCPbZWSgUSn8OXIpZRNqBCSzLBycWPEiGIPiDRvlQYGjDRTbPY6XFuHsAVHvIvElDnChQWMwLV Yxhn6YEXCaMTMmPFauMKTkQCTcPQNaUYzlUKKaMXPsDFT8OCJcWTQnLW8EMdZgZSUzVoJpSvCsNOWqYN Lqgr2HBPSxKXEhXaU0LFMmPVJdWDXsAVrsCQVfGERp RfVcXFZiSOExIH5SRjCxSRMhLoZqYdKrCIXiDOTgss2VYXTtOSAvFHFtUJEpXQMmFPBbDHvuALAaCXU2 JDg3ORYeLBZsOT1IAbMsLXYcEnL9MzNdNJToLXXihv3UmWDuzTqsal7IHIpFYb2OkHjwRBDyDXhxYl6n mDVfIeVbRCNDTc5HhmEpTGVsWWUSFXtoLKVwAGF1Gp oxHXO4OAP1MDCaCRBkHkNyGSduQqmoAwQiLfGuFuM1HXB9DMD0TTI2Oey4HmGvNfKjZXSmX4ZmXTTpLC E2Y2Q+SJ1nYWb+Vm2Du3CfomR9idTzGAotDVN4SU5QNACNR5WCCu== ID Date Data Source [id number] 12/04/2020 06:48:50 PM EDT [facility] Name Value Range Interpretation Code Description Data Cintia rce(s) Supporting Document(s) Choriogonadotropin ( test) [Presence] in Urine Ne [facility] NEGATIVE: either no HCG or too low to de tect, <20 mU/mL Specific gravity of Urine by Refractometry 1.033 1.003-1.030 H [facility] ID Date Data Source [id number] 12/04/2020 07:31:00 PM [facility] Name Value Range Interpretation Code Description Data Cintia rce(s) Supporting Document(s) Buprenorphine [Presence] in Urine Negative [facility] Results below the indicated cutoff(10 ng /mL), are reported as "Negative".Note - For medical purposed only.Not valid for legal or employment testing. ID Date Data Source [id number] 12/04/2020 07:31:00 PM [facility] Name Value Range Interpretation Code Description Data Cintia rce(s) Supporting Document(s) Amphetamine [Presence] in Urine by Screen method Negative [facility] Benzodiazepines [facility]Presence[facility]oids [Presence] in Urine by Screen method [facility] Benzoylecgonine [Presence] in Urine by Screen method [facility] Methadone [Presence] in Urine by Screen method Negative [facility] Opiates [Presence] in Urine by Screen method Negative [facility] Oxycodone [Presence] in Urine by Screen method [facility] Fentanyl+Norfentanyl [Presence] in Urine by Screen method Negative [facility] Service comment [facility] Results below the indicated cutoff (ng/m L), are reported as"Negative." Note: for medical purposes only; not valid for legalor employment testing. Procedure Social History No Information
[2020-12-18 08:09] LABS: HEMATOCRIT 39.3 % (36.0-47.0); HEMOGLOBIN 13.4 g/dl (12.0-15.5); MEAN CORPUSCULAR HGB CONC 34.1 g/dl (32.0-36.5); MEAN CORPUSCULAR VOLUME 85.1 fl (80.0-96.0); PLATELET COUNT, AUTOMATED 266 10^3/uL (150-450); RED BLOOD COUNT 4.62 10^6/uL (4.00-5.40); WHITE BLOOD COUNT 9.2 10^3/uL (4.0-10.0)
[2020-12-18 08:40] LABS: HCG, SERUM QUALITATIVE NEGATIVE (NEGATIVE)
[2020-12-18 08:42] LABS: AMPHETAMINES LEVEL URINE POSITIVE (NEGATIVE); BARBITURATES URINE NEGATIVE (NEGATIVE); BENZODIAZEPINES URINE POSITIVE (NEGATIVE); CANNABINOIDS URINE NEGATIVE (NEGATIVE); COCAINE METABOLITE URINE NEGATIVE (NEGATIVE); METHADONE URINE NEGATIVE (NEGATIVE); OPIATES URINE NEGATIVE (NEGATIVE); PHENCYCLIDINE URINE NEGATIVE (NEGATIVE)
[2020-12-18 09:09] LABS: ACETAMINOPHEN LEVEL < 2.0 UG/ML (10.0-30.0); ALBUMIN 3.5 GM/DL (3.2-5.2); ALT/SGPT 23 U/L (12-78); BILIRUBIN,DIRECT 0.1 MG/DL (0.0-0.2); BILIRUBIN,TOTAL 0.4 MG/DL (0.2-1.0); BLOOD UREA NITROGEN 14 MG/DL (7-18); CALCIUM LEVEL 8.5 MG/DL (8.5-10.1); CARBON DIOXIDE LEVEL 24 MEQ/L (21-32); CHLORIDE LEVEL 104 MEQ/L (98-107); ETHYL ALCOHOL (ETHANOL) < 0.003 % (0.000-0.010); GLOMERULAR FILTRATION RATE > 60.0 (>60); GLUCOSE, FASTING 82 MG/DL (70-100); POTASSIUM SERUM 3.7 MEQ/L (3.5-5.1); SALICYLATE LEVEL 1.9 MG/DL (5.0-30.0); SODIUM LEVEL 136 MEQ/L (136-145); THYROID STIMULATING HORMONE 0.555 uIU/ML (0.358-3.740); TOTAL PROTEIN 6.3 GM/DL (6.4-8.2)
[2020-12-18] MEDS ORDERED: BUPRENORPHINE/NALOXONE 8-2MG SUBLINGUAL TABLET(SUBOXONE) SL ONE (12:35)
[2020-12-18 12:47] LABS: RSV AMPLIFICATION NEGATIVE (NEGATIVE)
[2020-12-18] MEDS ORDERED: hydrOXYzine 25 MG TAB PO PRN (22:05)
[2020-12-18] MEDS ORDERED: MOM 30ML SUSPENSION UDC PO PRN (22:05)
[2020-12-18] MEDS ORDERED: MAALOX 30 ML SUSP *UDC PO PRN (22:05)
--- OUTSIDE RECORDS SUMMARY | 2020-12-18 22:27 | CCD ---
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 If you continue you may have access to information: Regarding HIV / AIDS; Provided by facilities licensed or operated by the [facility] Office of Mental Health; or Provided by the [facility] Office for People With Developmental Disabilities. If such information is present, then the following [facility] mandated warning applies: This information has [...] law may result in a fine or halfway sentence or both. A general authorization for the release of medical or other information is NOT sufficient authorization for further disc losure. Allergies and Adverse Reactions Type Description Substance Reaction Status Data Source(s ) Propensity to adverse reactions NO KNOWN ALLERGIES NO KNOWN ALLERGIES [facility] Propensity to adverse reactions AMOXICILLIN Amoxicillin Rash [facility] Family History Family Member Name Family Member Gender Family Member Status Date o f Status Description Data Source(s) Unknown Female Problem [facility] ([facility] Encounters Encounter Providers Location Date Indications Data Source(s ) Outpatient 12/25/2020 12:00:00 AM [facility] Outpatient 12/18/2020 12:00:00 AM T [facility] Outpatient Attender: DEIDRE GOETZ MD [id number] 12/11/2020 12:00:0 0 AM [facility] Outpatient Attender: DEIDRE GOETZ MDReferrer: DEIDRE Olsen MD 12/04/2020 12:00:00 AM EDT Opioid dependence, uncomplicated [facility] spital Opioid dependence, uncomplicated Outpatient Attender: DEIDRE GOETZ MD [id number] 12/04 12:00:00 AM EDT - 12/04/2020 03:01:36 PM EDT consult [facility] consult Medications Medication Brand Name Start Date [...] E DT 1.0 Tablet Oral active NETSMART (ethology) 24 HR venlafaxine 150 MG Extended Release Oral Capsule Venla faxine HCl 10/27/2019 04:00:00 AM EDT 1.0 Capsule Oral active NETSMART (ethology) lamotrigine 200 MG Oral Tablet lamoTRIgine 10/27/2019 04:00:00 AM EDT 1.0 Tablet Oral active NETSMART (ethology) Buprenorphine 8 MG / Naloxone 2 MG Oral Strip [Suboxone] Sub oxone 10/21/2019 04:00:00 AM EDT 1.0 Film Sublingual active NETSMART (ethology) Docusate Sodium 100 MG Oral Capsule [Colace] Colace 04:00:00 AM EDT 1.0 Each Oral active NETSMAR T (ethology) Docusate Sodium 50 MG / sennosides, LONG-TERM 8.6 MG Oral Tablet S jhoana Plus 10/12/2019 04:00:00 AM EDT 1.0 Tablet Oral active NETSMART (ethology) 24 HR venlafaxine 150 MG Extended Release Oral Capsule Venla faxine HCl 08/26/2019 04:00:00 AM EDT 1.0 Capsule Oral active NETSMART (ethology) Mirtazapine 15 MG Oral Tablet Mirtazapine 08/26/2019 04:00:00 AM E DT 1.0 Tablet Oral active NETSMART (ethology) lamotrigine 200 MG Oral Tablet lamoTRIgine 08/26/2019 04:00:00 AM EDT 1.0 Tablet Oral active NETSMART (ethology) Insurance Providers Payer name Policy type / Coverage type Policy ID Covered libertarian ID Covered libertarian's relationship to cervantes Policy Cervantes Plan Information MEDICAID M [id number] Self [id number] EXCELLUS I [id number] Self [id number] [employer] [id number] Self DARNELL I [id number] Self [id number] MEDICAID M [id number] Self [id number] [facility] I [id number] Self [id number] SELF PAY UNAVAILABLE SP UNAVAILA BLE DARNELL [id number] SP [id number] MEDICAID [id number] SP [id number] [facility] [id number] S [id number] SELF PAY SP UNAVAILABLE S UNAVAILA BLE MEDICAID [id number] S [id number] OPTION MC 2 [id number] SELF PAY 2 UNAVAILABLE 1 UNAVAILA BLE HMO BLUE [id number] SP [id number] MEDICAID 3 [id number] 1 [id number] BLUE CHOICE OPTIONS 7 [id number] SELFPAY 5 UNAVAILABLE 1 UNAVAILA BLE SELF PAY 5 UNAVAILABLE 1 UNAVAILA BLE [facility] [id number] SP [id number] [facility] [id number] SP [id number] [facility] DEPT.OF CORRECTIONAL [id number] SP [id number] [facility] QUALITY MANAGEMENT NURSE DEPT [id number] MEDICAID [id number] SP [id number] MEDICAID [id number] S [id number] Problems, Conditions, and Diagnoses Code Display Name Description Problem Type Effective Dates Data Source(s) F11.20 Opioid dependence, uncomplicated Opioid dependen ce, uncomplicated Diagnosis 12/04/2020 02:03:00 PM EDT [facility] consult consult Diagnosis 12/04/2020 01:47:10 PM ED T [facility] Surgeries/Procedures No Information Results ID Date Data Source [id number] 12/11/2020 11:30:52 AM EDT [facility] Name Value Range Interpretation Code Description Data Cintia rce(s) Supporting Document(s) Progress Note [facility] MUIMZg2kChLPYoJi74/ITTckDCGjb8QnQYsyCRg2ANbtJKEwZ4PsBBS9jO5sTVB6NVfQRnMeVbElAKR4 lbm [file] AgICAgICAgICAgICAgICAgICAgICAgICAgICAgICAgICAgICAgICAgICAgICAgICAgICAgICAgICAgIC AgICAgICAgICAgICAgDQogICAgICAgICAgICAgICAg ICAgICAgICAgICAgICAgICAgICAgICAgICAgICAgICAgICAgICAgICAgICAgICAgICAgICAgICAgICAg ICAgICAgICAgICAgICAgICAgICAgICAgDQogICAgICAgICAgICAgICAgICAgICAgICAgICAgICAgICAg ICAgICAgICAgICAgICAgICAgICAgICAgICAgICAgIC AgICAgICAgICAgICAgICAgICAgICAgICAgICAgICAgICAgDQogICAgICAgICAgICAgICAgICAgICAgIC AgICAgICAgICAgICAgICAgICAgICAgICAgICAgICAgICAgICAgICAgICAgICAgICAgICAgICAgICAgIC AgICAgICAgICAgICAgICAgDQogICAgICAgICAgICAg ICAgICAgICAgICAgICAgICAgICAgICAgICAgICAgICAgICAgICAgICAgICAgICAgICAgICAgICAgICAg ICAgICAgICAgICAgICAgICAgICAgICAgICAgDQogICAgICAgICAgICAgICAgICAgICAgICAgICAgICAg ICAgICAgICAgICAgICAgICAgICAgICAgICAgICAgIC AgICAgICAgICAgICAgICAgICAgICAgICAgICAgICAgICAgICAgDQogICAgICAgICAgICAgICAgICAgIC AgICAgICAgICAgICAgICAgICAgICAgICAgICAgICAgICAgICAgICAgICAgICAgICAgICAgICAgICAgIC AgICAgICAgICAgICAgICAgICAgDQogICAgICAgICAg ICAgICAgICAgICAgICAgICAgICAgICAgICAgICAgICAgICAgICAgICAgICAgICAgICAgICAgICAgICAg ICAgICAgICAgICAgICAgICAgICAgICAgICAgICAgDQogICAgICAgICAgICAgICAgICAgICAgICAgICAg ICAgICAgICAgICAgICAgICAgICAgICAgICAgICAgIC AgICAgICAgICAgICAgICAgICAgICAgICAgICAgICAgICAgICAgICAgDQogICAgICAgICAgICAgICAgIC AgICAgICAgICAgICAgICAgICAgICAgICAgICAgICAgICAgICAgICAgICAgICAgICAgICAgICAgICAgIC PaVUJdNPEcEFBhZMXoYSRgMXHmYYQsOQv6U9txLRYl QWQcEF6xZAx8Qm8+AKlENzOuHTF8zwWktK5QSJ0tg2IgXGemEOCuq0BgLJr8QN2NNOJoLXgiFD6SIVvt wj5KFIAeLUSsmQPCj4etDrFsVOH7JJMbArkvGM1SFYHoB3oaryAfPTHwBVFDHBhlCBBHOFJbUOXtOyQt LtWwFAHaAIWmEKBAZKZ2ZAZyScMfXNcdTB8Fj4IiyG A2DQo+Sz8RCD1sj3ElYRmoHKGsNF3hyi2CACcQYeWrF6GpzkL5JWG7YJCjXb8CISYrSZUlpPYePWNcPM OJUsSfX4OumA29OTNTQp1+FUvzfvTkGzpBTlJ8XSFlu9NnNGn4IF8MWZWxATv9oIRiBXNdI9Vus5KoHx 90ZXMgYnkgUmlzaGFuYSBTIENvaGVuLCBNRCBhdCAx ZK5eFX9nVGUnIZQkDbMjNVORNV4ZSJZlJMOvtXVmHIHoYCKVTG4HLTfmLAF6ABFpkuMlvVVyJDdvPJ6G YXJlbnQgMzggMCBSDQo+Tn3JVO4ce6LcPUr9IATxo1DlKXo7FO1CXTIrUCvmMDYrTT1sr2PnS3Q4TaI6 lBJbV1avtaguF5XalqPryxEbYBIsHYFrGG1PES7TNH 9YXNLcUQxrZQ8FGBQ4IFy2CQTfWtWhPJYkMqD0USudHM7HAURfFGK1LL3UJB1IBdhcE4YVDYhciYExwt egH3PbkH4kbhOkPhxiFBo5aY9avCC7XV8opH96ik9kf8atS3IavRixiqthP4XvvF0hI129BQBfPeYcZv AxmcwzWc6lTUa+Zo9RGV5de6SaVJl3OPWtEK0goi4L XYkFDsAoV5F7jTKhQ7X7ZFgsZf0OIESnJLEmYxBiBLWSSVyzLU9FFN5watH6ED6RqZCdSLFnRNNehPUr PIs5A56xpUFqDKneFJ7GXXZ+Abdi+Ij0ZDMAyOQUbUNDuPeWgPMQZEzOwQ3OrH8TTa1TlL8UyUW20kBff ugNxBYiiVA6JZO7hCUDjFHBHHT4CrDZnzB7ozuElYN GiTXVCEdToN99oeJRpHBYkEWY3VNWnSx5PQERxS0NsroLhfQtmryPfMQRaCIVUPN5WYVyokpXstTKqcA olUE65zRkjPC0JBo9MPdYtUI4jkb3HoGEsNe2WBUA0MW1HJUQuXOQgHMKlAXW7RVHoHsHzBMttVYRpPW RtQEC2DPBkIORlOM6PZlKkAATjJkr5LNJgGXMwCLSg ws0AEFApIRN9NLE6KrVpIVBgLBZrCIhmDLPtZGGqZBP9QUKxQQAmFY4UMnHdBPZuVLQ8MlOrPQAsHMDt xv8UBQSaFWJfJtt9ICHbYECbTCUoDJecJYWdUAS9KGEcVFRtXGGpNM5KQrYbDIBpNCD5YXYxJJXtXFDu jd6NIQEdPYZhStC9EOBlIXErZPFiJYvgYUJkPSI4OZ K4OYErNNLaNS1QCzKeJFRwEMEhZQBeEMZlIXDofv5MNDLjJCAfNti1ZUJvORQqTNLpSAifNKHxRORtRR M0MHVhKUZqPM8NUwCoBIWmGWM8NFJpVKSrKFZtis5DSZOwKWVrPWy6XFBxSCLiQHClFWzwQZAdXIZ2CI N4DGHaJAIwTV1FMdVnVRLoZKd6IGCiDZCxDDEgni0I CDJnRAHtFXPkMIDuTRVbYJStNOkaGFHoOIA9ZKDqKEMkSHKlSL0BXeZwNQXaTAv5GBZbNWTuJHQfjr0U HSTyMDDfPUm5QHUxSEGxIYRuSOxqAANfTIHkNCE7BQMmVRExWO1XRvXvYWPfZkFxHONpLBOzATIkpa9B HAAnHXYaOYv6NIReGIVxHQMaZNcpXLXxFMFkUPm9VC MfXIByTW8HOiOxATGdTdNeWLaoOCQrSIRyqd8FDTVvVKSuIoO8BCMrXEBqESUvENknJNWsZLOfEtJ6VC GlLVWdKI5HBaDyHAViXtY7EFosYZOzICPcyf0CTBGsCDAlImtbUXRyLDSqHLXqNYwbVHPwVAK0ZETsKQ XtQGGoCR7SHqAiBBTkEao0ZXThPFFgKIEyim0UTGDc PVFrKBR7CRXaPVJqBOMjKCtaQXQsPXY3Kmh4KLNcYTVeXF1QTdCpJRCqIxa6TwThKFAxNLNjpj3XRVZw PFGxVVc1AdBaWYAiGAHcZXteMBEjOXGaLwH9AHPmUMKwVN2XSuGbXDHzIXT0FaufEZDtXGVdrd5RZSRk PSN5ZEx7LPAfRGQwBLYnTQzoUJXpCTOdKQK8LWCrVU FtKT1EOaZdTTrtXOZIGir7FUtgL0w5HJK3UT5WI9Als1FxZTNcUFEWTHqpJG6cwpIbPCLwVy5LT7yJXe gwHKQqIXOyJRB5DKPdWtOeWOTuU6QyEQUyPDC1CKSkVc0yFWD0I6WnENSgMLbrDVZdRyO9PTUhIDC9Is Y0ALW0IgS7ZxQpOM1NBh7ZBeD3XYX1kNDyGo1XGVDbRZQIHgJkEB0KWQq= ID Date Data Source [id number] 12/04/2020 02:59:29 PM EDT [facility] Name Value Range Interpretation Code Description Data Cintia rce(s) Supporting Document(s) Progress Note [facility] YXIFCq4sXgNBQcBw67/BZElvDJOgj9YtUDdjXAd2EOfxALNyW6XdRHK6cC1mIOR4JPiKHuBsBsOcCSB2 lbm HkEjsHVxVtJUQjSfsTKrUpHYqySbvkhROxCH9WrZT1FJCcX35qJFCtIGPaO1XfTIP4LMl+Pa6YFECyfU XrAX6IHxyR0Q1fgyfRBq8dmE/EFsNnO2Wsci+TrmVliiSLcOFdYeFA3bDCism32SU3twWZ1B/q5N3rO6 q7iPK8G2nDRxz09EI8vulmNRIKnag//KoOQ9+yLLX6 7/dhAoinle2859/UZpjrrIdt/zeAjRdqQ5RJ4jA8h5266Iwv14DAO8yfg8myqz5zgMVFIrdlYlix2Umm x4Yr01s9pQeVMs8Y9VHAkRs+aQ4TGOgXr6KIFN2m+CINTIA/bYDQWKomkYkfuAoViKYL1WN1v0QnH7vmZm5 4/Thh+rHHLC9a3m5PXP4m72cGQgg2On9YyfZmOcKFa JeCXk5r2iEmCKB97ualU3Unp0ojFd+DLZAV6eimE6Xlmaw1Wu4kC9w11YN9aldSUrCNa6C9hHp5U8LXJ GxlVM+leYq5VejY0D66vutbE8cyLPSgSNTmJSn9cu0MlmK4G19gdR3Cx1CiFF3wO8I3+lu980kmhO5lM Hk2uBl7TP26Ybyuszsq8eINoPYpMKrCXQU9wZzP4Zy VuBw3D/7o7yx4Ph7Ng9C6wlg5M00mVcPcybow8IfwVWWQuKKwPvN2KSygyyjni87QZWxkUf76ivrl2qu xqgrG6xZwvoGq27kEjogdSk/9EBVT5wFCSda7W1D9HDnHKbZx0dGDficiKv5dnGtFW/50qKF8Kn19cln PGZnStt8QbXh0LSbLyrndUxZ73sAN+Rzbf/Wh7ZF62 Il9nV86+pnDjJpytLFXYOp8SXD//mlqOZ8Uj57ivPtNWoeWj9mKlA4v2Et79uFPfOtEeTTnjT7Hgun0V +prRgTBT+n2p8+XBD/b5qEQgEBcAT1Iv9W5iEbRQTWiQ6zVBnElqYxyk3iOqDwHH+IfiwsZaf1M0sV2w 4Nxz6ynqBxfezobwIY6rxjwyKCclhdvASFZnxp+7C5 [file] eAqYXjCUUVeQtoTJUJwonwqOdC/yAtNolAhMgxjrNK KHhu30WPM8y3YBaNS0IGWZN/mrhkdACq79wC03NIjUClnAKZDccqKDx00Jmg2ODPskhf+CSPiRVY1lKc 6bICRfd0Na6UIEDs7l1NxcWiKGBJRiPgRzwZ8KmFs32bGiE4bbHTq13T18Z5IGzT1NknGCuIj+guMWTT VFmRB6s1ONTwunK44QmPBVs7VkCbkRTGecGeUox/Y1 ez7Qdr1YU/usCvAvTJyVPL9luJ8kk1PSNWdo8B4IhFIMM4qHApS1sbeMuyn38h8PCR8VtBPHY5MH+vr9 MYIQ0OY+HPAHF/YFrxqe0DG7DdHdMtXNBJoQc8hyOCNP8P5C1kFbxBThZAIpR+tg8Tg83UGuYVdRWqHy RVRrnrdI55U+vp corporate development+PMNhmsIu+m8gLvCvWaibILANCZn [file] ICAgICAgICAgICAgICAgICAgICAgICAgICAgICAgICAgICAgICAgICAgICAgICAgICAgICAgICAgICAg ICAgICAgICAgICAgICAgICAgICANCiAgICAgICAgICAgICAgICAgICAgICAgICAgICAgICAgICAgICAg ICAgICAgICAgICAgICAgICAgICAgICAgICAgICAgIC AgICAgICAgICAgICAgICAgICAgICAgICAgICAgICANCiAgICAgICAgICAgICAgICAgICAgICAgICAgIC AgICAgICAgICAgICAgICAgICAgICAgICAgICAgICAgICAgICAgICAgICAgICAgICAgICAgICAgICAgIC AgICAgICAgICAgICANCiAgICAgICAgICAgICAgICAg ICAgICAgICAgICAgICAgICAgICAgICAgICAgICAgICAgICAgICAgICAgICAgICAgICAgICAgICAgICAg ICAgICAgICAgICAgICAgICAgICAgICANCiAgICAgICAgICAgICAgICAgICAgICAgICAgICAgICAgICAg ICAgICAgICAgICAgICAgICAgICAgICAgICAgICAgIC AgICAgICAgICAgICAgICAgICAgICAgICAgICAgICAgICANCiAgICAgICAgICAgICAgICAgICAgICAgIC AgICAgICAgICAgICAgICAgICAgICAgICAgICAgICAgICAgICAgICAgICAgICAgICAgICAgICAgICAgIC AgICAgICAgICAgICAgICANCiAgICAgICAgICAgICAg ICAgICAgICAgICAgICAgICAgICAgICAgICAgICAgICAgICAgICAgICAgICAgICAgICAgICAgICAgICAg ICAgICAgICAgICAgICAgICAgICAgICAgICANCiAgICAgICAgICAgICAgICAgICAgICAgICAgICAgICAg ICAgICAgICAgICAgICAgICAgICAgICAgICAgICAgIC AgICAgICAgICAgICAgICAgICAgICAgICAgICAgICAgICAgICANCiAgICAgICAgICAgICAgICAgICAgIC AgICAgICAgICAgICAgICAgICAgICAgICAgICAgICAgICAgICAgICAgICAgICAgICAgICAgICAgICAgIC AgICAgICAgICAgICAgICAgICANCiAgICAgICAgICAg ICAgICAgICAgICAgICAgICAgICAgICAgICAgICAgICAgICAgICAgICAgICAgICAgICAgICAgICAgICAg ICAgICAgICAgICAgICAgICAgICAgICAgICAgICANCjw/sVXbG9ljcQRmbsE0S8jrSv7JNg6SLI3gi0Lf OCOrFBzpbuBuKykZDlSfMBAcGnsAAla5PJvyIT4IrM IcW5LuH1TbTSxcEB9YFHKdECVdeOHaPFItGBMyJzN3SBWhAKzoDN6NnXEpDLwaCHAfFVSqZOEzNHJmIK QiCANPLACbSQKgEkIfOLFoWOArYHGjZRPCLK4UZjEpS5QnrT79ULCDAp0+DQplbmRvYmoNCjMwIDAgb2 KkHCu5YM5VEHZcRadlf4VsYiPcEQEZEVpuUB9VNRF7 NOFfEJTgBw2LQFQcH772uzYfKK8UWj5JSiVmWU6qkm1MSgQuGQGhAjqRPwp9EVsxVO9XpUHfKXdWgg8x fuQjeyLLq2WalfYfwKZSrMGvAB9sTDOzL53nUY3kZY6FCVN2VCFwTlG9WcLzCiSeIMX3HZXwMY7rDSxg PT2DZQG6ESniNUMqCYFrM8mKXiXdBTPxPFViiEddZT 3VRcBsI3CpzbOmtWXqIQDtSUYHKj3+SDlurbIdElfMGnPnYOItPciLOcz4GXqaMY5TcAKgBY6Mvz1htV HnX1DbwTgeSFTtKHuwrtXcOn1mLLAwOJssQSBgQF3aY4psF4pwN4PzLETJJdDgW2BdD2DgFkV2OTY8BI W1LAIfUbSmIC8PKICrSIU4VN1SPD2WPqcdM2EQLJdx vBRpvjzdX8TopR9wrwWrWpjgIZq9lB0ycJS6GF8mjD34ho5ux1xcB8LilWpenhkvU8FwcH4lH761DFNq YoDsXkJijkfdNi8dCEk+Jj7WAG8dd0ZwHEihVdDhWF4mmj6FIJwNZpDcS0Q5yBCbC6G7QBugPu4BKQKr LXRuCtuuLYYNWEvrUW7APK9ojzX7BL2KvKUpJDMsVS QakLWyUUb7P49fbGFuYHyiON5FHMG+Abdi+Ek5CXRSyFWHeVEJpJzGtLFFHZeTcK6PoS9OCd9FeP0ArNM 62xKnjosWsEBgsRM6OWX8cEUFxRVCOQK8PfEDjyC0nneKkLYRrGDMFPsHuF36mwGBtLBGuWDM7ICVpOd 0INOSqH3QpicGdeNejliYjQYNgIQGSDB8IOKnfxqLf aHWmuHcgXC43jWtdWY4AVr2AQxMlUU4uox3ItCQcBb5TCGRhSo5JUMLqSWDlPOOjOKQ2LCAkRcPdTQwo VJJqGQFoMFN3RHPkKMPiGF6NMpMaKOAcZkU5ZGAuJGDoHSDtbv3XVGMlJAIoBOE7XiGcKVLvGLXeVQlj CSIwSWWzCXC9JSPqIMQiEP6QNsCjAHChBLSqQWlsGH EbELGxib1COGCsONHyOItrFdLgGLWvKUShZEtxKXRnDNQ2JiL6RQJwYEDxGE7CTvKnDZIfJMryMUExTW NaNTTrji4MZHMgODDgNhHbBOChEQZpBSCbYHrjQWEoRYK3JKp5POIyPSUvOL9TQhFdOPZmVYNeHHZlTF DyCLLvhe1EQPSqJVWzWeI9YFWsILMfDFPjSOxrRQKl KXUrWeC9GXJkHFTgIS4AMgOcKLRgCTZ7SHTuIPDtDMBpta1MRXFxNVWyJwS0XFSrBNPtFOJbXIepDVRt LQB2Wdt1MPCqZEJkRK1GXrWePBDvEKv0QXNrMUEcLEVemg9PBUDnPQCvJTT3SlKcIDHiVSRmXRdtPBOr CPN6LxT1HTFzFTJuYW1PUgEcMMFbWTu0UaJcSUCbTZ Tspt6PBIHjZWMiVPd9DANaNETcPNRhYFntJCQdJTRlZIrdWXUkCPGvWP6YGpWrFOTxScAiHhJiGKZkJC Bmio9KIAOxIIBaSTanYZZpSHRbFHBoTDhsBPYbTOReCPJ5WSWrVZOpDP3LSiEzZDLsWcWkOnDoPSWyUW Axpl3ISYKpOCSvDqI5DFEeTSKzZBCjVMcpBCJgFGKh JeZkWAZnUCGfSI7FGiQlZZOsAtJoBxXoGMFqQJMjvu0SKTKuCBSvDLYmIBAgGFRdYQKiWEetDAYxHSJ2 GPn7LUOvJEWzTS3FYsTdKIMlWrD8EvQkLASoTQTdji0RmLCwfYdaey4NSYeZLf6JsFbpVLZyVVlyDr1n qEVmLxMdQVQPNp8LmfEhXQKeKEVGSDscQKHwBJU6Bv moDNE1KVX3WTPvXGTnTbGgIYdrGnoiLoHwMdExIhN9OYM3WZN1FLB1Epr2RgJsMnDhCUAvR6IcSCQiRM E2Y2Q+WX4iCIz+Ts6Yk4RhfmU3fyTpEJpxYTA2IB3OMMNHL2WHEk== ID Date Data Source [id number] 12/04/2020 06:48:50 PM EDT [facility] Name Value Range Interpretation Code Description Data Cintia rce(s) Supporting Document(s) Choriogonadotropin ( test) [Presence] in Urine [facility] NEGATIVE: either no HCG or too low to de tect, <20 mU/mL Specific gravity of Urine by Refractometry 1.033 1.003-1.030 H [facility] ID Date Data Source [id number] 12/04/2020 07:31:00 PM [facility] Value Range Interpretation Code Description Data Cintia rce(s) Supporting Document(s) Buprenorphine [Presence] in Urine Negative [facility] Results below the indicated cutoff(10 ng /mL), are reported as "Negative".Note - For medical purposed only.Not valid for legal or employment testing. ID Date Data Source [id number] 12/04/2020 07:31:00 PM [facility] Value Range Interpretation Code Description Data Cintia rce(s) Supporting Document(s) Amphetamine [Presence] in Urine by Screen method Negative [facility] Benzodiazepines [Presence] in Urine by Screen method [facility] Cannabinoids [Presence] in Urine by Screen method [facility] Benzoylecgonine [Presence] in Urine by Screen method [facility] Methadone [Presence] in Urine by Screen method Negative [facility] Opiates [Presence] in Urine by Screen method Negative [facility] Oxycodone [Presence] in Urine by Screen method [facility] Fentanyl+Norfentanyl [Presence] in Urine by Screen method Negative [facility] Service comment [facility] Results below the indicated cutoff (ng/m L), are reported as"Negative." Note: for medical purposes only; not valid for legalor employment testing. Procedure Social History No Information
[2020-12-18] MEDS ORDERED: VITA200038 PO (23:28)
[2020-12-18] MEDS ORDERED: VENL150C43 PO (23:28)
[2020-12-18] MEDS ORDERED: SUBO8MIS SL (23:28)
[2020-12-18] MEDS ORDERED: MIRT-62 PO (23:28)
[2020-12-18] MEDS ORDERED: IBUP1TAB6 PO (23:28)
[2020-12-18] MEDS ORDERED: VENL75CA47 PO (23:28)
[2020-12-18] MEDS ORDERED: GABA-282 PO (23:28)
[2020-12-18] MEDS ORDERED: CYCL10TA5 PO (23:28)
[2020-12-18] MEDS ORDERED: HOME MED LIST COMPLETE! XX SCH (23:30)
[2020-12-19] MEDS: ACETAMINOPHEN TAB 650MG DOSE (2X325MG) PO PRN ×2 (07:01→17:10)
[2020-12-19 07:02] VITALS: BP 121/65
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
[2020-12-19] MEDS: BUPRENORPHINE/NALOXONE 8-2MG SUBLINGUAL TABLET(SUBOXONE) SL SCH ×2 (09:52→22:18)
[2020-12-19] MEDS: GABAPENTIN 300 MG CAP PO SCH ×3 (09:53→22:17)
[2020-12-19] MEDS: VENLAFAXINE **XR** 75MG CAPSULE PO SCH ×2 (09:53→09:59)
[2020-12-19] MEDS: CYCLOBENZAPRINE 10MG TABLET PO SCH ×3 (09:53→22:18)
[2020-12-19] MEDS: NICOTINE 21MG/24HR 1 EA TRANSDERMAL TD SCH (09:59)
[2020-12-19] MEDS ORDERED: methylPREDNISolone 125MG 2ML VIAL IV PRN (17:10)
[2020-12-19] MEDS ORDERED: diphenhydrAMINE 50MG/ML VIAL (J1200) IV PRN (17:10)
[2020-12-19] MEDS ORDERED: NS 1,000 ML IV SCH (17:10)
[2020-12-19] MEDS ORDERED: ALBUTEROL 90 MCG/ACT 8GM HFA INHALER INH PRN ×2 (17:10)
[2020-12-19] MEDS ORDERED: ALBUTEROL SULFATE 2.5 MG/0.5 ML INH NEB SOLN INH PRN (17:10)
[2020-12-19] MEDS ORDERED: BAMLANIVIMAB 700 MG, ETESEVIMAB 1,400 MG in NS 250 ML IV ONE (17:10)
[2020-12-19] MEDS ORDERED: EPINEPHrine INJ 1 MG/ML 1ML AMP IM PRN (17:10)
--- NOTE | 2020-12-19 17:12 | HPEPDOC ---
[facility] Medical History & Physical Date of Admission Dec 18, 2020 Date of Service: Dec 19, 2020 Attending Physician: ROSEANNE SCHULZ MD History and Physical CHIEF COMPLAINT: Expressed suicidal ideation HISTORY OF PRESENT ILLNESS: 30 yo W with a history of ADHD, anxiety, PTSD and depression, polysubstance abuse including heroin, crack, methamphetamine, benzodiazepines, history of self-mutilation, multiple suicide attempts by overdose, history of incarceration in 2013 for drug trafficking who presented to the ED with severe depression and reporting suicidal ideation i/s/o psychosocial stressors with ongoing divorce proceedings from , poor relations with an ex- and was admitted to the [facility]. ED workup was notable for tox screen that was positive amphetamines and benzodiazepines and she is covid-19 positive. She is stable on room air, without dyspnea, chest pain, palpitations but does feel some myalgias and exhaustion. PAST MEDICAL HISTORY: 1. Anxiety. 2. depression. 3. Insomnia. 4. Human papillomavirus (HPV). 5. PSUD PAST SURGICAL HISTORY: 1. Colposcopies, multiple 2. Left shoulder pain and repair. 3. Loop electrical excision procedure (LEEP). FAMILY HISTORY: Mother with anxiety and depression. SOCIAL HISTORY: Current smoker, > 10 years. Denies: alcohol drinking. Illicit drug use: Prior heroine, currently amphetamines and benzo. History of 5y incarceration for drug trafficking ALLERGIES: Please see below. REVIEW OF SYSTEMS: 10 point ROS was otherwise negative completely. HOME MEDICATIONS: Please see below. PHYSICAL EXAMINATION: VITAL SIGNS: see below GENERAL APPEARANCE: NAD, thin HEENT: NCAT, EOMI, MMM CARDIOVASCULAR: RRR, no m/r/g LUNGS: CTAB, no wheezing or crackles ABDOMEN: Normoactive bowel sounds, soft, NTND EXTREMITIES: WWP, no LE edema NEUROLOGICAL: CN 3-12 intact, normal gait, nonfocal exam PSYCHIATRIC: AOx3 LABORATORY DATA: Reviewed IMAGING: None MICROBIOLOGY: Please see below. ASSESSMENT: 30 yo W with a history of ADHD, anxiety, PTSD and depression, polysubstance abuse including heroin, crack, methamphetamine, benzodiazepines, history of self-mutilation, multiple suicide attempts by overdose, history of incarceration in 2013 for drug trafficking who presented to the ED with severe depression and reporting suicidal ideation i/s/o psychosocial stressors with ongoing divorce proceedings from , poor relations with an ex- and was admitted to the [facility]. Of note, she is covid-19 positive. She is stable on room air, without dyspnea, chest pain, palpitations but does feel some myalgias and exhaustion. Depression and suicidal ideation i/s/o psychosocial stressors and illicit drug use: -Plan per primary psych team Covid-19 infection: -Will consent her for MABs that per pharmacy is likely to receive tomorrow AM -MABs ordered to be received in the [facility] -She is stable on room air, without dyspnea, chest pain, palpitations but does feel some myalgias and exhaustion. -ASA 81mg -albuterol mdi PRN -acetaminophen PRN -tessalon perles PRN DVT ppx: ambulatory, also started her on ASA 81 Will sign off at this time. Vital Signs Vital Signs Date Time Temp Pulse Resp B/P (MAP) Pulse Ox O2 Delivery O2 Flow Rate FiO2 12/19/20 07:02 98.5 96 16 121/65 (83) 100 Room Air Home Medications Scheduled Buprenorphine HCl/Naloxone HCl (Suboxone 8 mg-2 mg Sl Film) 1 Each Film, 1 STRIP SL BID for . Cholecalciferol (Vitamin D3) (Vitamin D3) 50 Mcg Tablet, 50 MCG PO DAILY for . Cyclobenzaprine HCl (Cyclobenzaprine HCl) 10 Mg Tablet, 10 MG PO TID for . Gabapentin (Gabapentin) 300 Mg Capsule, 300 MG PO TID for . Mirtazapine (Remeron) 15 Mg Tablet, 15 MG PO QHS for . Venlafaxine HCl (Venlafaxine HCl ER) 75 Mg Cap.er.24h, 75 MG PO DAILY for . TAKES WITH 150MG FOR 225MG TOTAL Venlafaxine HCl (Venlafaxine HCl ER) 150 Mg Cap.er.24h, 150 MG PO DAILY for . TAKES WITH 75MG FOR 225MG TOTAL Scheduled PRN Ibuprofen (Ibuprofen) 600 Mg Tablet, 600 MG PO Q6H PRN for MILD PAIN (PS 1-4) Allergies Coded Allergies: No Known Allergies (Unverified , 12/18/20) A-FIB/CHADSVASC A-FIB History Current/History of A-Fib/PAF?: No Current PO Anticoag Therapy: No Age/Risk Factor Scoring CHADSVASC: CHADSVASC Response (Comments) Value Age Risk Factor Age < 65 years old 0 Gender Risk Factor Female 1 Hx of CHF No 0 Hx of HTN No 0 Hx of Stroke/TIA/or VTE No 0 Hx of Diabetes No 0 Hx of Vascular Disease No 0 Total 1 Treatment Treatment ordered: NONE Reason Anticoagulant not given: Not indicated/[id number] ROSEANNE SCHULZ MD Dec 19, 2020 16:39
[2020-12-19 19:03] VITALS: BP 141/81
[2020-12-19] MEDS: MIRTAZAPINE 15 MG TAB PO SCH (22:17)
[2020-12-20 07:08] VITALS: BP 129/79
[2020-12-20 07:42] LABS: CHOLESTEROL RISK RATIO 2.925 (<5)
[2020-12-20] MEDS: CYCLOBENZAPRINE 10MG TABLET PO SCH ×3 (08:31→21:47)
[2020-12-20] MEDS: GABAPENTIN 300 MG CAP PO SCH ×3 (08:31→21:47)
[2020-12-20] MEDS: BUPRENORPHINE/NALOXONE 8-2MG SUBLINGUAL TABLET(SUBOXONE) SL SCH ×2 (08:32→21:47)
[2020-12-20] MEDS: VENLAFAXINE **XR** 75MG CAPSULE PO SCH ×2 (08:32→08:33)
[2020-12-20] MEDS: IBUPROFEN 600MG TAB PO PRN (08:34)
[2020-12-20] MEDS: BENZONATATE 100MG CAPSULE PO PRN (08:34)
[2020-12-20] MEDS: NICOTINE 21MG/24HR 1 EA TRANSDERMAL TD SCH (08:34)
[2020-12-20] MEDS ORDERED: CASIRIVIMAB/IMDEVIMAB 1,200 MG in NS 250 ML IV ONE (11:00)
[2020-12-20 11:15] VITALS: BP 102/63
[2020-12-20 11:45] VITALS: BP 98/50
--- NOTE | 2020-12-20 11:59 | MHIPNPDOC ---
[facility] Progress Note Progress Note DATE OF SERVICE: 12/20/20 HISTORY: Patient is a 30 -year-old , female, with reported history of ADHD, anxiety, PTSD and depression, polysubstance abuse including heroin, crack, methamphetamine, history of self-mutilation, reports at least 10 suicide attempts primarily by overdose, has a history of incarceration in 2013 for drug trafficking, reports released in 2015 for selling heroin. Reports she was living in the [facility] and moved to [facility] in the last month due to pending divorce with her. States she is living with her parents in [facility], gets into arguments with her mother. Reports last month took 13 Seroquel in an attempt to end her life and did not tell anybody and woke up the next day feeling okay. States she called EMS and was brought by police to the hospital for evaluation because of her covid symptoms, worsening depressive symptoms including suicidal thoughts, reports the main trigger is that her ex has her 12-year-old daughter down in [place] and will not let her daughter see her, states she needs to fight for custody. Patient established with [facility] and taking Suboxone, This report was requested by: Bibi Snowden | Reference #: [id number], I stop confirms prescription Suboxone 8-2 twice daily sublingual. Patient is positive for amphetamines and benzodiazepines that she states she bought off the street from somebody, reports gets Adderall from outside provider and requesting admission. Interval: Patient reports sore throat, denies shortness of breath or chest pain, was made aware that she has been taking him for an infusion with medical antibodies in context of Covid, patient also reports diffuse muscle pain which she says has been there since she was found out to be positive Covid. Pulse ox 100%, vitals stable within normal limits. Patient states she is feeling better today on medications, denies medication side effects, denies suicidal ideations. Was seen briefly due to being brought upstairs to get her infusion. VITAL SIGNS: See below. NEW TEST RESULTS: See below CURRENT MEDICATIONS: See below. MENTAL STATUS EXAMINATION: General Appearance: disheveled, lying in bed, reports she forgot to get her breakfast and scuddled over to eat, avoiding eye contact Build: thin Demeanor: withdrawn Eye Contact: poor Activity: slowed Behavior: cooperative, loss of interests Speech: spontaneous, slow, low in volume Mood: States "pretty good" Affect: Withdrawn, blunted, anxious Thought Process: logical/linear, depressed, slow Thought Content (Delusions): other (Suicidal thoughts, no intent or plan) Thought Content (Other): coherent Thought Content (Aggressive): none reported Perception (Hallucinations): none reported Perception (Other): none reported Cognition (Impairment of): attention/concentration Cognition(Intelligence Est.): average Oriented: Awake, Alert, Oriented times three Insight: Improving Judgment: Poor Psychosis: Denies DIAGNOSES: Other specified depressive disorder Rule out substance-induced mood disorder PTSD per history Stimulant use disorder Xanax use disorder Tobacco use disorder Heroin use disorder in remission, supplemented with Suboxone Cluster B traits, rule out borderline personality disorder, antisocial personality disorder ASSESSMENT: Patient reports mood is improving, despite covert systems including sore throat, cough, muscle aches, denies shortness of breath or chest pain or neurological changes, reports tolerates medications without side effects. Denies suicidal ideation today on brief interview. MANAGEMENT PLAN: Was given lozenge for nursing for sore throat, being taken up for monoclonal antibody treatment upstairs on the medical floor, not being discharged rather getting a treatment and returning to the psychiatric floor. Continue medications TIME SPENT: 15 minutes. Vital Signs Vital Signs Date Time Temp Pulse Resp B/P (MAP) Pulse Ox O2 Delivery O2 Flow Rate FiO2 12/20/20 11:15 98.3 82 18 102/63 (76) 100 Room Air Laboratory Data 24H Labs Laboratory Tests 2 12/20/20 07:00: Triglycerides Level 85, Total Cholesterol 117, LDL Cholesterol 60, Non-HDL Cholesterol (LDL + VLDL) 77, Total HDL Cholesterol 40, Cholesterol/HDL Ratio 2.925 Current Medications Current Medications Medications (Trade) Dose Ordered Sig/Radha Route PRN Reason Start Time Stop Time Status Last Admin Dose Admin Acetaminophen (Tylenol Tab) 650 mg Q6HP PRN PO HEADACHE or MILD DISCOMFORT 12/18/20 22:05 12/19/20 17:10 Al Hydrox/Mg Hydrox/Simethicone (Mylanta) 30 ml Q4HP PRN PO HEARTBURN/INDIGESTION 12/18/20 22:05 Albuterol Sulfate (Proventil Neb) 2.5 mg ASDIRECTED PRN INH SOB/WHEEZING 12/19/20 17:10 Albuterol Sulfate (Proventil, Ventolin Hfa) 2 puff Q4HP PRN INH SHORTNESS OF BREATH 12/19/20 17:10 Albuterol Sulfate (Proventil, Ventolin Hfa) 4 puff ASDIRECTED PRN INH SOB/WHEEZING 12/19/20 17:10 Aripiprazole (AbiLIFY) 5 mg QHS PO 12/19/20 21:00 12/19/20 22:17 Benzonatate (Tessalon Perles) 100 mg TIDP PRN PO COUGH 12/19/20 17:10 12/20/20 08:34 Buprenorphine/ Naloxone (Suboxone 8/2mg) 1 tab BID SL 12/19/20 09:00 12/20/20 08:32 Cetylpyridinium Chloride (Cepacol) 1 bal Q1HP PRN PO COUGH 12/20/20 09:00 Cyclobenzaprine HCl (Flexeril) 10 mg TID PO 12/19/20 09:00 12/20/20 08:31 Diphenhydramine HCl (Benadryl) 25 mg ASDIRECTED PRN IV SEE LABEL COMMENTS 12/19/20 17:10 Epinephrine HCl (Adrenalin) 0.3 mg ASDIRECTED PRN IM ANAPHYLAXIS 12/19/20 17:10 Gabapentin (Neurontin) 300 mg TID PO 12/19/20 09:00 12/20/20 08:31 Home Med (Home Med List Complete!) ASDIRECTED XX 12/18/20 23:30 12/18/20 23:29 DC Hydroxyzine HCl (Atarax) 25 mg Q4HP PRN PO ANXIETY/AGITATION 12/18/20 22:05 12/20/20 08:33 Ibuprofen (Advil) 600 mg Q6H PRN PO MILD PAIN (PS 1-4) 12/19/20 00:00 12/20/20 08:34 Magnesium Hydroxide (Milk Of Magnesia) 30 ml DAILYPRN PRN PO CONSTIPATION 12/18/20 22:05 Methylprednisolone (SOLUmedrol) 125 mg ASDIRECTED PRN IV HYPERSENSITIVITY 12/19/20 17:10 Mirtazapine (Remeron) 15 mg QHS PO 12/19/20 21:00 12/19/20 22:17 Nicotine (Nicoderm Cq 21mg) 1 patch DAILY TD 12/19/20 09:00 12/20/20 08:34 Sodium Chloride 1,000 ml @ 15 mls/hr Q24H IV 12/19/20 17:10 12/19/20 11:15 Venlafaxine HCl (Effexor Xr) 75 mg DAILY PO 12/19/20 09:00 12/20/20 08:32 Venlafaxine HCl (Effexor Xr) 150 mg DAILY PO 12/19/20 09:00 12/20/20 08:33 Allergies Coded Allergies: No Known Allergies (Unverified , 12/18/20) BIBI SNOWDEN MD Dec 20, 2020 11:59
[2020-12-20 12:15] VITALS: BP 93/57
[2020-12-20 13:15] VITALS: BP 93/57
[2020-12-20] MEDS: metroNIDAZOLE (FLAGYL) 500MG TABLET PO SCH ×2 (15:00→21:47)
[2020-12-20] MEDS: CEPACOL LOZENGE PO PRN ×2 (15:15→18:45)
[2020-12-20] MEDS: ACETAMINOPHEN TAB 650MG DOSE (2X325MG) PO PRN (15:16)
[2020-12-20 15:49] LABS: HIV 1&2 SCREEN CENTAUR NEGATIVE (NEGATIVE)
[2020-12-20 18:58] VITALS: BP 106/61
[2020-12-20 19:03] LABS: GC DNA AMPLIFICATION NEGATIVE (NEGATIVE)
[2020-12-20] MEDS: MIRTAZAPINE 15 MG TAB PO SCH (21:46)
[2020-12-21 06:21] VITALS: BP 143/89
[2020-12-21] MEDS: BUPRENORPHINE/NALOXONE 8-2MG SUBLINGUAL TABLET(SUBOXONE) SL SCH ×2 (09:22→20:54)
[2020-12-21] MEDS: VENLAFAXINE **XR** 75MG CAPSULE PO SCH (09:22)
[2020-12-21] MEDS: CYCLOBENZAPRINE 10MG TABLET PO SCH ×3 (09:22→20:53)
[2020-12-21] MEDS: NICOTINE 21MG/24HR 1 EA TRANSDERMAL TD SCH (09:22)
[2020-12-21] MEDS: GABAPENTIN 300 MG CAP PO SCH ×3 (09:22→20:54)
[2020-12-21] MEDS: metroNIDAZOLE (FLAGYL) 500MG TABLET PO SCH ×2 (09:23→20:54)
[2020-12-21 10:00] VITALS: BP 120/88
--- NOTE | 2020-12-21 13:41 | MHIPNPDOC ---
[facility] Progress Note Progress Note DATE OF SERVICE: 12/21/20 HISTORY: Patient is a 30 -year-old , female, with reported history of ADHD, anxiety, PTSD and depression, polysubstance abuse including heroin, crack, methamphetamine, history of self-mutilation, reports at least 10 suicide attempts primarily by overdose, has a history of incarceration in 2013 for drug trafficking, reports released in 2015 for selling heroin. Reports she was living in the [facility] and moved to [facility] in the last month due to pending divorce with her. States she is living with her parents in [facility], gets into arguments with her mother. Reports last month took 13 Seroquel in an attempt to end her life and did not tell anybody and woke up the next day feeling okay. States she called EMS and was brought by police to the hospital for evaluation because of her covid symptoms, worsening depressive symptoms including suicidal thoughts, reports the main trigger is that her ex has her 12-year-old daughter down in [place] and will not let her daughter see her, states she needs to fight for custody. Patient established with [facility] and taking Suboxone, This report was requested by: Bibi Snowden | Reference #: [id number], I stop confirms prescription Suboxone 8-2 twice daily sublingual. Patient is positive for amphetamines and benzodiazepines that she states she bought off the street from somebody, reports gets Adderall from outside provider and requesting admission. Interval: Reports continues to have depression, agreeable to increase mirtazapine from 15 to 30 mg nightly, denies medication side effects, continues to have covert symptoms including cough, sore throat, muscle aches, reports coughing up sputum, denies shortness of breath, chest pain or neurological changes. VITAL SIGNS: See below. NEW TEST RESULTS: See below CURRENT MEDICATIONS: See below. MENTAL STATUS EXAMINATION: General Appearance: disheveled, lying in bed, improving eye contact Build: thin Demeanor: withdrawn Eye Contact: poor Activity: slowed Behavior: cooperative, loss of interests Speech: spontaneous, slow, low in volume Mood: States "sad" Affect: Dysthymic, withdrawn, blunted, anxious Thought Process: logical/linear, depressed, slow Thought Content (Delusions): other (Suicidal thoughts, no intent or plan) Thought Content (Other): coherent Thought Content (Aggressive): none reported Perception (Hallucinations): none reported Perception (Other): none reported Cognition (Impairment of): attention/concentration Cognition(Intelligence Est.): average Oriented: Awake, Alert, Oriented times three Insight: Improving Judgment: Poor Psychosis: Denies DIAGNOSES: Other specified depressive disorder Rule out substance-induced mood disorder PTSD per history Stimulant use disorder Xanax use disorder Tobacco use disorder Heroin use disorder in remission, supplemented with Suboxone Cluster B traits, rule out borderline personality disorder, antisocial personality disorder ASSESSMENT: Reports continues to be depressed, but is improving, continues to h ave symptoms of Covid and receiving antibiotics. Vitals are stable, see below. MANAGEMENT PLAN: Has lozenges for sore throat, continues to improve on medications, agreeable to increasing mirtazapine to 30 mg nightly, if continues to improve we will consider discharge likely on Friday. TIME SPENT: 15 minutes. Vital Signs Vital Signs Date Time Temp Pulse Resp B/P (MAP) Pulse Ox O2 Delivery O2 Flow Rate FiO2 12/21/20 06:21 98.9 99 20 143/89 (107) 98 Room Air Laboratory Data 24H Labs Laboratory Tests 2 12/20/20 14:09: Syphilis Serology NONREACTIVE, HIV Antigen/Antibody Combo Qual NEGATIVE 12/20/20 16:40: Chlamydia trachomatis DNA (OMA) NEGATIVE, Neisseria gonorrhoeae DNA (OMA) NEGATIVE Current Medications Current Medications Medications (Trade) Dose Ordered Sig/Rdaha Route PRN Reason Start Time Stop Time Status Last Admin Dose Admin Acetaminophen (Tylenol Tab) 650 mg Q6HP PRN PO HEADACHE or MILD DISCOMFORT 12/18/20 22:05 12/20/20 15:16 Al Hydrox/Mg Hydrox/Simethicone (Mylanta) 30 ml Q4HP PRN PO HEARTBURN/INDIGESTION 12/18/20 22:05 Albuterol Sulfate (Proventil Neb) 2.5 mg ASDIRECTED PRN INH SOB/WHEEZING 12/19/20 17:10 Albuterol Sulfate (Proventil, Ventolin Hfa) 2 puff Q4HP PRN INH SHORTNESS OF BREATH 12/19/20 17:10 Albuterol Sulfate (Proventil, Ventolin Hfa) 4 puff ASDIRECTED PRN INH SOB/WHEEZING 12/19/20 17:10 Aripiprazole (AbiLIFY) 5 mg QHS PO 12/19/20 21:00 12/20/20 21:46 Benzonatate (Tessalon Perles) 100 mg TIDP PRN PO COUGH 12/19/20 17:10 12/20/20 08:34 Buprenorphine/ Naloxone (Suboxone 8/2mg) 1 tab BID SL 12/19/20 09:00 12/21/20 09:22 Cetylpyridinium Chloride (Cepacol) 1 bal Q1HP PRN PO COUGH 12/20/20 09:00 12/20/20 18:45 Cyclobenzaprine HCl (Flexeril) 10 mg TID PO 12/19/20 09:00 12/21/20 09:22 Diphenhydramine HCl (Benadryl) 25 mg ASDIRECTED PRN IV SEE LABEL COMMENTS 12/19/20 17:10 Epinephrine HCl (Adrenalin) 0.3 mg ASDIRECTED PRN IM ANAPHYLAXIS 12/19/20 17:10 Gabapentin (Neurontin) 300 mg TID PO 12/19/20 09:00 12/21/20 09:22 Home Med (Home Med List Complete!) ASDIRECTED XX 12/18/20 23:30 12/18/20 23:29 DC Hydroxyzine HCl (Atarax) 25 mg Q4HP PRN PO ANXIETY/AGITATION 12/18/20 22:05 12/20/20 08:33 Ibuprofen (Advil) 600 mg Q6H PRN PO MILD PAIN (PS 1-4) 12/19/20 00:00 12/20/20 08:34 Magnesium Hydroxide (Milk Of Magnesia) 30 ml DAILYPRN PRN PO CONSTIPATION 12/18/20 22:05 Methylprednisolone (SOLUmedrol) 125 mg ASDIRECTED PRN IV HYPERSENSITIVITY 12/19/20 17:10 Metronidazole (Flagyl) 500 mg BID PO 12/20/20 09:00 12/27/20 08:59 12/21/20 09:23 Mirtazapine (Remeron) 15 mg QHS PO 12/19/20 21:00 12/21/20 13:37 DC 12/20/20 21:46 Mirtazapine (Remeron) 30 mg QHS PO 12/21/20 21:00 UNV Nicotine (Nicoderm Cq 21mg) 1 patch DAILY TD 12/19/20 09:00 12/21/20 09:22 Sodium Chloride 1,000 ml @ 15 mls/hr Q24H IV 12/19/20 17:10 12/20/20 16:52 DC 12/19/20 11:15 Venlafaxine HCl (Effexor Xr) 75 mg DAILY PO 12/19/20 09:00 12/21/20 09:19 DC 12/20/20 08:32 Venlafaxine HCl (Effexor Xr) 150 mg DAILY PO 12/19/20 09:00 12/21/20 09:20 DC 12/20/20 08:33 Venlafaxine HCl (Effexor Xr) 225 mg DAILY PO 12/21/20 09:00 12/21/20 09:22 Allergies Coded Allergies: No Known Allergies (Unverified , 12/18/20) BIBI SNOWDEN MD Dec 21, 2020 13:41
[2020-12-21 14:00] VITALS: BP 125/80
[2020-12-21 18:00] VITALS: BP 102/58
[2020-12-21] MEDS ORDERED: MIRTAZAPINE 15 MG TAB PO SCH (21:00)
[2020-12-22 06:19] VITALS: BP 135/68
[2020-12-22] MEDS: metroNIDAZOLE (FLAGYL) 500MG TABLET PO SCH (09:18)
[2020-12-22] MEDS: GABAPENTIN 300 MG CAP PO SCH (09:18)
[2020-12-22] MEDS: BUPRENORPHINE/NALOXONE 8-2MG SUBLINGUAL TABLET(SUBOXONE) SL SCH (09:18)
[2020-12-22] MEDS: NICOTINE 21MG/24HR 1 EA TRANSDERMAL TD SCH (09:19)
[2020-12-22] MEDS: CYCLOBENZAPRINE 10MG TABLET PO SCH (09:19)
[2020-12-22] MEDS: VENLAFAXINE **XR** 75MG CAPSULE PO SCH (09:19)
[2020-12-22] MEDS: BENZONATATE 100MG CAPSULE PO PRN (09:22)
[2020-12-22] MEDS: IBUPROFEN 600MG TAB PO PRN (09:23)
[2020-12-22] MEDS: CEPACOL LOZENGE PO PRN (09:23)
[2020-12-22 10:35] VITALS: BP 138/81
[2020-12-22] MEDS ORDERED: VENTAER INH ×2 (12:35)
[2020-12-22] MEDS ORDERED: ALB2.5NEB INH (12:35)
[2020-12-22] MEDS ORDERED: VENL150C43 PO (12:35)
[2020-12-22] MEDS ORDERED: MIRT-62 PO (12:35)
[2020-12-22] MEDS ORDERED: BENZ-18 PO (12:35)
[2020-12-22] MEDS ORDERED: NICO21PAT TD (12:35)
[2020-12-22] MEDS ORDERED: METR-265 PO (12:35)
[2020-12-22] MEDS ORDERED: EPIN1INJ IM (12:35)
[2020-12-22] MEDS ORDERED: SORE15LO PO (12:35)
[2020-12-22] MEDS ORDERED: ABIL1TAB11 PO (12:35)
[2020-12-22] MEDS ORDERED: METH125VL IV (12:35)
[2020-12-22] MEDS ORDERED: VENL75CA47 PO (12:35)
--- NOTE | 2020-12-22 13:07 | MHDSPDOC ---
[facility] Discharge Summary Discharge Summary DATE OF ADMISSION: Dec 18, 2020 at 22:02 DATE OF DISCHARGE: December 22, 2020 Discharge diagnoses: Other specified depressive disorder Rule out substance-induced mood disorder PTSD per history Stimulant use disorder Xanax use disorder Tobacco use disorder Heroin use disorder in remission, supplemented with Suboxone Borderline personality disorder Reason for admission: Patient is a 30 -year-old , female, with reported history of ADHD, anxiety, PTSD and depression, polysubstance abuse including heroin, crack, methamphetamine, history of self-mutilation, reports at least 10 suicide attempts primarily by overdose, has a history of incarceration in 2014 for drug trafficking, reports released in 2015 for selling heroin. Reports she was living in [facility] and moved to [facility] in the last month due to pending divorce with her. States she is living with her parents in [facility], gets into arguments with her mother. Reports last month took 13 Seroquel in an attempt to end her life and did not tell anybody and woke up the next day feeling okay. States she called EMS and was brought by police to the hospital for evaluation because of her covid symptoms, worsening depressive symptoms including suicidal thoughts, reports the main trigger is that her ex has her 12-year-old daughter down in [place] and will not let her daughter see her, states she needs to fight for custody. Patient established with [facility] and taking Suboxone, This report was requested by: Bibi Willingham | Reference #: [id number], I stop confirms prescription Suboxone 8-2 twice daily sublingual. Patient is positive for amphetamines and benzodiazepines that she states she bought off the street from somebody, reports gets Adderall from outside provider and requesting admission. Vital signs: See below Consultants involved: See medical H&P by hospitalist Treatment and progress on the unit: Patient was admitted to the [facility] on a 39 legal status and was afforded the following treatment modalities: 1. Individual therapy 2. Group therapy 3. Medication management 4. Milieu therapy 5. Safe environment Hospital course: Patient was admitted to the [facility] on a 9.39 legal status. Was medically cleared prior to coming up to the [facility]. Patient presented reporting having arguments with mom at home, depressed mood, low energy, came in the hospital for evaluation of Covidien depression and suicidal thoughts. Patient was restarted on home medications, treated with nebulizers, albuterol, antibiotics for infection, did not have dyspnea or chest pain, but did report cough, sore throat received lozenges, diffuse muscle pain in context of being over 19. Was placed in quarantine and could not attend groups. Patient reported she took Lamictal 200 mg p.o. daily and this did not help stabilize her mood and gave her jitters, muscle twitches, so medication was discontinued. We will start Abilify 10 mg p.o. nightly with good response, denied side effects. Mirtazapine was also increased to 30 mg nightly she reported having poor sleep which improved after making a medication change. Patient found medications beneficial and tolerated them well without side effects. Patient was educated on substance abuse with motivational interviewing, was continued on Suboxone which she tolerated well after reviewing I stop, see above. During her stay she no longer had suicidal ideations, mood improved, reported improved energy spenser pite covert symptoms, sleep improved and was no longer having insomnia. Denies low mood, anxiety and intrusive thoughts which improved with treatment. Patient symptoms improved with treatment. On day of discharge patient denied depression, anxiety, insomnia, suicidal or homicidal ideations intent or plan, hallucinations, delusions. Patient was discharged home with follow-up. Patient felt safe for discharge. Was offered continued stay on voluntary admission but refused. Discharge assessment: On today's interview patient is alert and oriented, dressed appropriately. Hygiene and grooming is well-kept. Smiles on approach and is pleasant and engaged on interview. Denies depression and anxiety. Denies suicidal homicidal ideation, intent or planning. Denies and is not observed with yamil or psychotic symptoms of delusions, hallucinations, bizarre thinking, obsessions, paranoia, ruminations, illogical thoughts, flight of ideas or having poor insight or judgment. Patient has normal mentation, declines fu rther hospitalization of voluntary status and meets criteria for discharge today, patient encouraged to return the hospital if symptoms worsen or change and encouraged to call unit if they feel they need provider's questions to be answered or help with medications or care. Patient made aware to follow-up with medical provider and if symptoms worsen to return to the hospital including shortness of breath, chest pain or other worsening symptoms covid 19. Patient plans to follow-up with outpatient providers and feels safe to return home to her mother's house, collateral was obtained and it was covered that she could return home mother wanted her home and felt safe to have her back. Mental status: General Appearance: Improved hygiene, lying in bed, improving eye contact, continues to report sore throat, cough, no longer reports muscle pains Build: thin Demeanor: withdrawn Eye Contact: poor Activity: slowed Behavior: cooperative, loss of interests Speech: spontaneous, slow, low in volume Mood: States "good" Affect: euthymic,full, appropriate Thought Process: logical/linear, goal directed Thought Content (Delusions): Denies suicidal ideation, intent or plan. Denies homicidal ideation, intent or plan Thought Content (Other): coherent Thought Content (Aggressive): none reported Perception (Hallucinations): none reported Perception (Other): none reported Cognition (Impairment of): attention/concentration Cognition(Intelligence Est.): average Oriented: Awake, Alert, Oriented times three Insight: good Judgment: fair Psychosis: Denies Medications on discharge: see medication reconciliation: CSSRS on discharge: Wish to be : No nonspecific active suicidal thoughts: No lifetime attempts: Reports 10 suicide attempts, one attempt by taking excess Seroquel, 13 pills a month ago and not telling anybody interrupted attempts: 0 aborted attempts: multiple preparatory acts or behavior: None Taking into consideration safety state, status, safety plan, protective factors, modifiable, non-modifiable risk factors patient is at chronically elevated risk on discharge for suicide according to [facility] suicide evaluation. PLAN/FOLLOWUP ARRANGEMENTS: Follow Up Care Education Label * Medical * Medical Follow Up [facility] * Established With This Provider Yes * Therapist Rohini Elizondo * Date Dec 29, 2020 * Time 10:00 * Address of Clinic or Practice [address] [place] [address] * Follow Up Care Education Label * Mental Health Appt 1 * Mental Health [facility] * Therapist Diana * Date Dec 26, 2020 * Time 15:00 * Address of Clinic or Practice [address] [place] [address] * The amount of time spent in the coordination of care for this patient was approximately 25 minutes. ETOH/Disorder Med Rx ETOH/DRUG DISORDER RX: Offrd @ d/c & pt refused Vital Signs/I&Os Vital Signs Date Time Temp Pulse Resp B/P (MAP) Pulse Ox O2 Delivery O2 Flow Rate FiO2 12/22/20 10:35 97.7 88 18 138/81 (100) 98 Room Air Medications Scheduled Aripiprazole (Abilify) 5 Mg Tablet, 5 MG PO QHS for mood, #7 Buprenorphine HCl/Naloxone HCl (Suboxone 8 mg-2 mg Sl Film) 1 Each Film, 1 STRIP SL BID for ., (Reported) Cholecalciferol (Vitamin D3) (Vitamin D3) 50 Mcg Tablet, 50 MCG PO DAILY for ., (Reported) Cyclobenzaprine HCl (Cyclobenzaprine HCl) 10 Mg Tablet, 10 MG PO TID for ., (Reported) Gabapentin (Gabapentin) 300 Mg Capsule, 300 MG PO TID for ., (Reported) Metronidazole (Metronidazole) 500 Mg Tablet, 500 MG PO BID for infection, #14 Mirtazapine (Remeron) 15 Mg Tablet, 30 MG PO QHS for depression, #14 Nicotine (Nicotine Patch) 21 Mg Patch.td24, 1 PATCH TD DAILY for nicotine cravings, #7 Venlafaxine HCl (Venlafaxine HCl ER) 75 Mg Cap.er.24h, 75 MG PO DAILY for mood, #7 TAKES WITH 150MG FOR 225MG TOTAL Venlafaxine HCl (Venlafaxine HCl ER) 150 Mg Cap.er.24h, 150 MG PO DAILY for mood, #7 TAKES WITH 75MG FOR 225MG TOTAL Scheduled PRN Albuterol Sulfate (Ventolin Hfa) 18 Gm Hfa.aer.ad, 4 PUFF INH ASDIRECTED PRN for SOB/WHEEZING, #1 Albuterol Sulfate (Albuterol Sulfate) 2.5 Mg/0.5 Ml Vial.neb, 2.5 MG INH ASDIRECTED PRN for SOB/WHEEZING, #1 Albuterol Sulfate (Ventolin Hfa) 18 Gm Hfa.aer.ad, 2 PUFF INH Q4HP PRN for SHORTNESS OF BREATH, #1 Benzocaine/Menthol (Sore Throat Lozenge) 1 Each Lozenge, 1 LAURY PO Q1HP PRN for COUGH, #7 Benzonatate (Benzonatate) 100 Mg Capsule, 100 MG PO TIDP PRN for COUGH, #21 Epinephrine HCl/Pf (Epinephrine 1 mg/ml Ampul) 1 Mg/1 Ml Ampul, 0.3 MG IM ASDIRECTED PRN for ANAPHYLAXIS, #1 Ibuprofen (Ibuprofen) 600 Mg Tablet, 600 MG PO Q6H PRN for MILD PAIN (PS 1-4), (Reported) Methylprednisolone (Solu-Medrol 125 mg Vial) 125 Mg/2 Ml Vial, 125 MG IV ASDIRECTED PRN for HYPERSENSITIVITY, #1 Allergies Coded Allergies: No Known Allergies (Unverified , 12/18/20) BIBI WILLINGHAM MD Dec 22, 2020 13:07
== END 2020-12-22 15:26 | disposition home or self-care (01) | DRG 753 ==
LOC: M ED 03:27 → M ED INP 22:02 → M PSY 22:53
PROVIDERS: ADMIT Student in an Organized Health Care Education/Training Program; ATTEND Student in an Organized Health Care Education/Training Program
PROC: XW033G6 Introduction of REGN-COV2 Monoclonal Antibody into Peripheral Vein, Percutaneous Approach, New Technology Group 6 (ICD-10-PCS; principal; 2020-12-19)
DX: F32.89 Other specified depressive episodes (principal); U07.1 COVID-19; F43.10 Post-traumatic stress disorder, unspecified; F15.10 Other stimulant abuse, uncomplicated; F17.200 Nicotine dependence, unspecified, uncomplicated; F10.11 Alcohol abuse, in remission; Z79.899 Other long term (current) drug therapy; M79.18 Myalgia, other site; F60.3 Borderline personality disorder; Z63.5 Disruption of family by separation and divorce; Z65.2 Problems related to release from prison; R53.83 Other fatigue

== ENCOUNTER 2021-02-17 11:30 | Emergency (ER) | payer MEDICAID, OTHER ==
[~2021-02-17] VITALS: Ht 167.6 cm; Wt 52.3 kg
[~2021-02-17 11:30] MED LIST changes: +ABIL1TAB11 PO; +ALB2.5NEB INH; +BENZ-18 PO; +CYCL10TA5 PO; +EPIN1INJ IM; +GABA-282 PO; +IBUP1TAB6 PO; +METH125VL IV; +METR-265 PO; +MIRT-62 PO; +NICO21PAT TD; +SORE15LO PO; +SUBO8MIS SL; +VENL150C43 PO; +VENL75CA47 PO; +VENTAER INH; +VITA200038 PO
[2021-02-17] MEDS ORDERED: LORazepam 2 MG/ML VIAL IV STA (11:41)
[2021-02-17] MEDS ORDERED: NS 1,000 ML IV ONE (11:45)
[2021-02-17] MEDS ORDERED: SUCRALFATE SUSP 1GM/10ML UD PO ONE (11:45)
[2021-02-17] MEDS ORDERED: ONDANSETRON 4MG/2ML VIAL IV ONE (11:45)
[2021-02-17 11:57] LABS: BASO % 0.5 % (0.0-1.0); EOS % 0.1 % (0.0-3.0); HEMATOCRIT 41.8 % (36.0-47.0); HEMOGLOBIN 13.8 g/dl (12.0-15.5); LYMPH # 1.5 10^3/uL (1.5-5.0); LYMPH % 18.4 % (24.0-44.0); MEAN CORPUSCULAR HEMOGLOBIN 28.3 pg (27.0-33.0); MEAN CORPUSCULAR VOLUME 85.8 fl (80.0-96.0); MONO # 0.3 10^3/uL (0.0-0.8); NEUTROPHILS # 6.2 10^3/uL (1.5-8.5); NEUTROPHILS % 76.6 % (36.0-66.0); PLATELET COUNT, AUTOMATED 348 10^3/uL (150-450); RED BLOOD COUNT 4.87 10^6/uL (4.00-5.40); WHITE BLOOD COUNT 8.1 10^3/uL (4.0-10.0)
[2021-02-17 12:24] LABS: HCG, SERUM QUALITATIVE NEGATIVE (NEGATIVE)
[2021-02-17 12:31] LABS: ACETAMINOPHEN LEVEL < 2.0 UG/ML (10.0-30.0); ALBUMIN 4.2 GM/DL (3.2-5.2); ALT/SGPT 24 U/L (12-78); BILIRUBIN,DIRECT 0.2 MG/DL (0.0-0.2); BILIRUBIN,TOTAL 0.4 MG/DL (0.2-1.0); BLOOD UREA NITROGEN 28 MG/DL (7-18); CALCIUM LEVEL 9.7 MG/DL (8.5-10.1); CARBON DIOXIDE LEVEL 28 MEQ/L (21-32); CHLORIDE LEVEL 104 MEQ/L (98-107); CREATININE FOR GFR 0.99 MG/DL (0.55-1.30); ETHYL ALCOHOL (ETHANOL) < 0.003 % (0.000-0.010); GLOMERULAR FILTRATION RATE > 60.0 (>60); GLUCOSE, FASTING 87 MG/DL (70-100); POTASSIUM SERUM 3.9 MEQ/L (3.5-5.1); SALICYLATE LEVEL 4.7 MG/DL (5.0-30.0); SODIUM LEVEL 139 MEQ/L (136-145); THYROID STIMULATING HORMONE 0.311 uIU/ML (0.358-3.740); TOTAL PROTEIN 7.1 GM/DL (6.4-8.2)
[2021-02-17] MEDS ORDERED: PROMETHAZINE INJ 25 MG/ML VIAL (J2550) IV ONE (13:15)
[2021-02-17 15:35] VITALS: BP 132/79
--- NOTE | 2021-02-17 18:01 | ECGEPIP ---
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
== END 2021-02-17 15:40 | disposition home or self-care (01) ==
LOC: M ED 11:30
DX: F15.10 Other stimulant abuse, uncomplicated (principal); K21.9 Gastro-esophageal reflux disease without esophagitis; Z79.899 Other long term (current) drug therapy; Z79.891 Long term (current) use of opiate analgesic; F17.210 Nicotine dependence, cigarettes, uncomplicated
CPT/HCPCS: 80048; 80076; 80143; 82077; 82550; 84443; 84703; 85025; 93005; 93041; 94760; 96361; 96374; 96375; 99285; J2060; J2405

== ENCOUNTER 2021-05-08 00:08 | Emergency (ER) | payer MEDICAID, OTHER ==
[~2021-05-08] VITALS: Ht 167.6 cm; Wt 54.5 kg
[~2021-05-08 00:08] MED LIST changes: +CYCL10TA20 PO; -CYCL10TA5 PO
[2021-05-08 00:09] VITALS: BP 130/76
[2021-05-08] MEDS ORDERED: BACT800T5 PO (01:20)
[2021-05-08] MEDS ORDERED: BACTRIM 160MG/800MG DS TAB PO ONE (01:25)
== END 2021-05-08 01:35 | disposition home or self-care (01) ==
LOC: M ED 00:08
DX: L08.9 Local infection of the skin and subcutaneous tissue, unspecified (principal); F33.9 Major depressive disorder, recurrent, unspecified; F41.9 Anxiety disorder, unspecified; F15.10 Other stimulant abuse, uncomplicated; Z79.899 Other long term (current) drug therapy; F17.210 Nicotine dependence, cigarettes, uncomplicated

== ENCOUNTER 2021-05-12 18:04 | Emergency (ER) | payer MEDICAID, OTHER ==
[~2021-05-12] VITALS: Ht 167.6 cm; Wt 51.8 kg
[~2021-05-12 18:04] MED LIST changes: +BACT800T5 PO
[2021-05-12 18:05] VITALS: BP 178/116
[2021-05-12] MEDS ORDERED: LIDO2SOL9 PO (19:23)
[2021-05-12] MEDS ORDERED: CLEO300C2 PO (19:23)
[2021-05-12] MEDS ORDERED: CLINDAMYCIN 150MG CAPSULE PO ONE (19:25)
== END 2021-05-12 19:35 | disposition home or self-care (01) ==
LOC: M ED 18:04
DX: R21 Rash and other nonspecific skin eruption (principal); T14.8XXA Other injury of unspecified body region, initial encounter; F17.210 Nicotine dependence, cigarettes, uncomplicated; F15.20 Other stimulant dependence, uncomplicated

== ENCOUNTER 2021-07-23 18:36 | Emergency (ER) | payer MEDICAID, OTHER ==
[~2021-07-23 18:36] MED LIST changes: +CLEO300C2 PO; +LIDO2SOL9 PO
== END 2021-07-23 19:15 | disposition left against medical advice (07) ==
LOC: EDBD 18:36 → M ED 18:36
DX: Z53.21 Procedure and treatment not carried out due to patient leaving prior to being seen by health care provider (principal)

== ENCOUNTER 2022-05-14 23:36 | Emergency (ER) | payer OTHER ==
[~2022-05-14] VITALS: Ht 167.6 cm; Wt 60.0 kg
[~2022-05-14 23:36] MED LIST changes: +BENZ1LOZ2 PO; -SORE15LO PO
[2022-05-14] MEDS ORDERED: BOOSTRIX/ADACEL VACCINE (DIPHTH/PERTUSS/ACELL/TETANUS) 0.5ML SYR IM.IMMUN ONE (23:50)
[2022-05-14] MEDS ORDERED: LIDOCAINE 2% MDV 20ML VIAL SC ONE (23:50)
[2022-05-14] MEDS ORDERED: MORPHINE 4 MG/ML 1ML VIAL IV ONE (23:50)
[2022-05-14] MEDS ORDERED: ONDANSETRON 4MG 2ML VIAL IV ONE (23:50)
[2022-05-15 01:00] VITALS: BP 137/88
[2022-05-15] MEDS ORDERED: traMADol 50 MG TAB PO ONE (01:00)
[2022-05-15] MEDS ORDERED: IBUP80TA PO (01:13)
[2022-05-15] MEDS ORDERED: AMOX875T2 PO (01:13)
[2022-05-15] MEDS ORDERED: IBUPROFEN 800 MG TAB PO ONE (01:20)
[2022-05-15] MEDS ORDERED: AUGMENTIN 875 MG TAB PO ONE (01:20)
== END 2022-05-15 01:32 | disposition home or self-care (01) ==
LOC: M ED 23:36 → EDBD 23:36 → M ED 05-15 01:32
DX: S91.012A Laceration without foreign body, left ankle, initial encounter (principal); W50.1XXA Accidental kick by another person, initial encounter; Y92.009 Unspecified place in unspecified non-institutional (private) residence as the place of occurrence of the external cause; Y93.89 Activity, other specified; Y99.8 Other external cause status; Z79.899 Other long term (current) drug therapy; F32.A Depression, unspecified

== ENCOUNTER 2022-06-03 18:33 | Emergency (ER) | payer OTHER ==
[~2022-06-03] VITALS: Ht 167.6 cm; Wt 55.9 kg
[~2022-06-03 18:33] MED LIST changes: +AMOX875T2 PO; +IBUP80TA PO; +LIDO2SOBTL PO; -LIDO2SOL9 PO
[2022-06-03 18:36] VITALS: BP 120/70
[2022-06-03] MEDS ORDERED: CEPH500C (19:05)
== END 2022-06-03 22:20 | disposition left against medical advice (07) ==
LOC: M ED 18:33
DX: Z48.02 Encounter for removal of sutures (principal); Z53.21 Procedure and treatment not carried out due to patient leaving prior to being seen by health care provider

== ENCOUNTER 2022-07-31 06:43 | Emergency (ER) | payer MEDICAID, OTHER ==
[~2022-07-31] VITALS: Ht 167.6 cm; Wt 59.1 kg
[~2022-07-31 06:43] MED LIST changes: +CEPH500C
[2022-07-31 06:44] VITALS: BP 136/86; TEMP 97.7; O2SAT 99
[2022-07-31] MEDS ORDERED: hydrOXYzine 50 MG TAB PO ONE (07:45)
== END 2022-07-31 10:04 | disposition home or self-care (01) ==
LOC: M ED 06:43
DX: F11.23 Opioid dependence with withdrawal (principal); F17.200 Nicotine dependence, unspecified, uncomplicated; Z79.899 Other long term (current) drug therapy

== ENCOUNTER 2022-08-16 09:16 | Emergency (ER) | payer MEDICAID, OTHER ==
[~2022-08-16] VITALS: Ht 167.6 cm; Wt 58.2 kg
[2022-08-16] MEDS ORDERED: PROZ20CA11 PO (09:47)
[2022-08-16] MEDS ORDERED: METH-1177 PO (09:47)
[2022-08-16] MEDS ORDERED: BACTRIM 160MG/800MG DS TAB PO ONE (10:50)
[2022-08-16] MEDS ORDERED: ONDANSETRON 4MG ORAL DISINTEGRATING TAB PO ONE (10:50)
[2022-08-16] MEDS ORDERED: ONDA4TAB6 PO (10:55)
[2022-08-16] MEDS ORDERED: BACT800T5 PO (10:55)
[2022-08-16 11:12] VITALS: BP 130/88; TEMP 98.5; O2SAT 99
== END 2022-08-16 11:17 | disposition home or self-care (01) ==
LOC: M ED 09:16
DX: A49.02 Methicillin resistant Staphylococcus aureus infection, unspecified site (principal); S01.80XA Unspecified open wound of other part of head, initial encounter; X58.XXXA Exposure to other specified factors, initial encounter; Y92.89 Other specified places as the place of occurrence of the external cause; Y93.89 Activity, other specified; Y99.8 Other external cause status; R11.0 Nausea; Z79.899 Other long term (current) drug therapy

== ENCOUNTER → 2022-10-10 | Outpatient (CLI) | payer OTHER ==
[~2022-10-10] MED LIST changes: +METH-1177 PO; +ONDA4TAB6 PO; +PROZ20CA11 PO
[2022-10-10 09:48] LABS: HEMATOCRIT 43.6 % (36.0-47.0); HEMOGLOBIN 14.1 g/dl (12.0-15.5); MEAN CORPUSCULAR HEMOGLOBIN 28.1 pg (27.0-33.0); MEAN CORPUSCULAR HGB CONC 32.3 g/dl (32.0-36.5); PLATELET COUNT, AUTOMATED 275 10^3/uL (150-450); RED BLOOD COUNT 5.01 10^6/uL (4.00-5.40)
[2022-10-10 10:18] LABS: HCG, SERUM QUALITATIVE NEGATIVE (NEGATIVE)
[2022-10-10 10:38] LABS: HIV 1&2 SCREEN NEGATIVE (NEGATIVE)
[2022-10-10 10:45] LABS: HEPATITIS C VIRUS ABY INDEX 0.12 INDEX (<0.8)
== END ==
LOC: M LAB 08:48
PROVIDERS: ATTEND Family Medicine
DX: F11.20 Opioid dependence, uncomplicated (principal)

== ENCOUNTER 2023-02-03 12:09 | Emergency (ER) | payer OTHER ==
[~2023-02-03] VITALS: Ht 167.6 cm; Wt 58.8 kg
[~2023-02-03 12:09] MED LIST changes: -BENZ1LOZ2 PO; +LIDO100S29 PO; -LIDO2SOBTL PO; -MIRT-62 PO; +MIRT-88 PO; +SORE15LO PO
[2023-02-03 12:10] VITALS: BP 132/73; TEMP 99.2; O2SAT 98
[2023-02-03 13:16] LABS: RSV AMPLIFICATION NEGATIVE (NEGATIVE)
[2023-02-03] MEDS ORDERED: ACETAMINOPHEN TAB 650MG DOSE (2X325MG) PO ONE (15:20)
[2023-02-03] MEDS ORDERED: AMOX875T2 PO (15:54)
[2023-02-03] MEDS ORDERED: ACET325C5 PO (15:54)
[2023-02-03] MEDS ORDERED: IBUP-1022 PO (15:54)
== END 2023-02-03 16:03 | disposition home or self-care (01) ==
LOC: M ED 12:09
DX: J01.90 Acute sinusitis, unspecified (principal); F17.200 Nicotine dependence, unspecified, uncomplicated; Z79.899 Other long term (current) drug therapy

== ENCOUNTER → 2024-01-20 | Outpatient (CLI) | payer OTHER ==
[~2024-01-20] MED LIST changes: +ACET325C5 PO; +GABA-1172 PO; -GABA-282 PO; +IBUP-1022 PO; +ONDA-282 PO; -ONDA4TAB6 PO
== END ==
LOC: M RAD 17:52
PROVIDERS: ATTEND Physician Assistant Medical
DX: M79.671 Pain in right foot (principal)

== ENCOUNTER → 2024-05-14 | Outpatient (CLI) | payer OTHER | LOC: M RAD 12:33 | PROVIDERS: ATTEND Student in an Organized Health Care Education/Training Program | DX: M54.50 Low back pain, unspecified (principal); M25.551 Pain in right hip; M25.552 Pain in left hip ==

== ENCOUNTER → 2024-08-18 | Outpatient (REF) | payer OTHER | LOC: M LAB REF 17:13 | PROVIDERS: ATTEND Pediatrics | DX: N89.8 Other specified noninflammatory disorders of vagina (principal) ==